=== PATIENT | male | born 1965 | race Caucasian/White ===

== ENCOUNTER → 2021-07-03 10:27 | Outpatient (BNVA) | payer MEDICARE, MEDICAID, SELFPAY | PROVIDERS: Visit Provider Physician Assistant | DX: Z13.89 Encounter for screening for other disorder (principal) ==

== ENCOUNTER 2021-07-03 11:38 | Outpatient (REF) | payer MEDICARE, MEDICAID, SELFPAY ==
[2021-07-03 13:43] LABS: MANUAL DIFF FLAG NO
[2021-07-03 13:47] LABS: Basophils Percent Auto 0.3 % (0-2); Eosinophils Absolute Auto 0.2 X10*3/uL (0.0-0.4); Eosinophils Percent Auto 2.8 % (0-4); Hematocrit 41.7 % (42.0-52.0); Hemoglobin 14.7 g/dl (14.0-18.0); Imm Gran Abs Auto 0.02 X10*3/uL (0.00-0.03); Imm Gran Pct Auto 0.3 % (0.0-0.4); Lymphocytes Absolute Auto 1.7 X10*3/uL (1.2-4.9); Lymphocytes Percent Auto 23.4 % (20-40); Mean Corpuscular HGB Conc 35.3 g/dl (31.0-36.0); Mean Corpuscular Hemoglobin 31.3 pg (27.0-33.0); Mean Corpuscular Volume 88.7 fL (80.0-98.0); Mean Platelet Volume 9.9 fL (9.4-12.4); Monocytes Absolute Auto 0.5 X10*3/uL (0.1-1.2); Neutrophils Absolute Auto 4.8 x10*3/uL (2.0-8.3); Neutrophils Percent Auto 66.2 % (45-73); Platelet Count 223 X10*3/uL (160-400); Red Cell Distribution Width 12.6 % (11.0-16.0); White Blood Count 7.3 X10*3/uL (4.8-10.8)
[2021-07-03 14:00] LABS: Alanine Aminotransferase 44 U/L (0-40); Albumin Level 4.1 g/dL (3.5-5.0); Alkaline Phosphatase 59 U/L (39-117); Anion Gap 12 (12-20); Aspartate Amino Transferase 26 U/L (5-37); Bilirubin Total 0.5 mg/dL (0.0-1.0); Blood Urea Nitrogen 23 mg/dL (9-16); C Reactive Protein 0.26 mg/dL (< or = 0.50); Calcium 9.3 mg/dL (8.4-10.2); Carbon Dioxide 26 mmol/L (22-29); Chloride 105 mmol/L (96-108); Estimated Glomerular Filt Rate > 60; Glucose Random 212 mg/dL (60-115); Potassium 4.6 mmol/L (3.3-5.1); Sodium 138 mmol/L (135-145); Total Protein 6.7 g/dL (6.5-8.0)
[2021-07-03 14:11] LABS: Estimated Average Glucose 157 mg/dL; Hemoglobin A1c % 7.1 %
[2021-07-03 14:22] LABS: Thyroid Stimulating Hormone 0.52 uIU/mL (0.32-4.0)
[2021-07-03 14:33] LABS: Erythrocyte Sedimentation Rate 8 MM/HR (0-15)
[2021-07-06 08:01] LABS: Transglutaminase IgA <1.0 U/mL
[2021-07-07 13:06] LABS: Endomysial IgA Antibody Negative (Negative)
== END 2021-07-03 11:39 | disposition home or self-care (01) ==
LOC: HO.WFDLDS 11:38
PROVIDERS: Visit Provider Physician Assistant
DX: K52.9 Noninfective gastroenteritis and colitis, unspecified (principal); K59.09 Other constipation; R11.0 Nausea; R14.0 Abdominal distension (gaseous); R68.81 Early satiety; R10.9 Unspecified abdominal pain; Z12.11 Encounter for screening for malignant neoplasm of colon; Z79.899 Other long term (current) drug therapy; Z79.82 Long term (current) use of aspirin; Z87.891 Personal history of nicotine dependence
CPT/HCPCS: 36415; 80053; 83036; 84443; 85025; 85652; 86140; 86231; 86364; 99202

== ENCOUNTER 2021-08-02 10:02 | Outpatient (REF) | payer MEDICARE, MEDICAID, SELFPAY ==
[2021-08-02 13:56] LABS: CDiff Gene PCR NEGATIVE (Negative)
[2021-08-07 23:21] LABS: Calprotectin, Fecal 181 mcg/g
== END 2021-08-02 10:03 | disposition home or self-care (01) ==
LOC: HO.WFDLNP 10:02
PROVIDERS: Visit Provider Physician Assistant
DX: K52.9 Noninfective gastroenteritis and colitis, unspecified (principal)
CPT/HCPCS: 83993; 87329; 87493

== ENCOUNTER → 2021-08-21 09:29 | Outpatient (BNVA) | payer MEDICARE, MEDICAID, SELFPAY | PROVIDERS: PCP Family Medicine; Visit Provider Physician Assistant | DX: K52.9 Noninfective gastroenteritis and colitis, unspecified (principal) | CPT/HCPCS: Q3014 ==

== ENCOUNTER → 2021-10-02 14:27 | Outpatient (BNVA) | payer MEDICARE, MEDICAID, SELFPAY | PROVIDERS: PCP Family Medicine; Referring Provider Family Medicine; Visit Provider Physician Assistant | DX: K52.9 Noninfective gastroenteritis and colitis, unspecified (principal) | CPT/HCPCS: 99212 ==

== ENCOUNTER 2021-11-06 10:23 | Outpatient (REF) | payer MEDICARE, MEDICAID, SELFPAY ==
--- NOTE | ~2021-11-06 | US_ITS ---
EXAMINATION: US COMPLETE ABDOMEN WITH LIVER ELASTOGRAPHY CLINICAL INFORMATION: Abdominal distention. COMPARISON: None. TECHNIQUE: Real-time imaging of the abdominal viscera. Noninvasive ultrasound liver fibrosis assessment is performed using Edwin ElastPQ point quantification shear wave elastography (2D-SWE) with a C5-2 MHz transducer. Multiple elastography samples are obtained. FINDINGS: PANCREAS: The visualized pancreatic head and body are normal in appearance. The remainder of the pancreas is obscured from visualization by the overlying bowel gas. ABDOMINAL AORTA: The proximal, middle, and distal aortic segments are normal in caliber. INFERIOR VENA CAVA: Visualized portions are normal. LIVER: The liver demonstrates normal size, contour and increased echogenicity. There is an area of focal fatty sparing. No other focal lesion or intrahepatic biliary duct dilatation. The right lobe measures 17.0 cm in length. The left lobe measures 12.2 cm in length. Portal flow is hepatopedal. Shear wave liver elastography median stiffness is 1.52 m/s (reference: normal median stiffness is 1.3 m/s or less). IQR/median stiffness to assess sampling precision is 0.09 (reference: good quality data set is IQR/median stiffness of 0.15 or less). GALLBLADDER: There is an echogenic nonmobile polyp measuring 0.6 x 0.6 x 0.7 cm. The gallbladder is physiologically distended without evidence of stones, sludge, polyps, wall thickening or pericholecystic fluid. COMMON BILE DUCT: Normal in caliber measuring 0.5 cm in diameter. RIGHT KIDNEY: Normal. No hydronephrosis. No renal calculi or focal parenchymal lesions. The kidney measures 10.2 cm in maximum dimension. LEFT KIDNEY: Normal. No hydronephrosis. No renal calculi or focal parenchymal lesions. The kidney measures 10.6 cm in maximum dimension. SPLEEN: Normal. The spleen measures 11.0 cm in maximum dimension. FREE FLUID: None. US/US abdomen comp w elastography IMPRESSION: 1. Hepatic steatosis with areas of focal fatty sparing. Nonmobile echogenic gallbladder polyp. 2. Liver elastography: Median liver stiffness measures 1.52 corresponding to cACLD (ruled out). REFERENCE: Society of Radiologists in Ultrasound Liver Stiffness Thresholds (2019): LIVER STIFFNESS THRESHOLDS: *Liver Stiffness equal or less than 1.3 m/s: High probability of being normal. *Liver Stiffness less than 1.7 m/s: In the absence of other known clinical signs, rules out compensated advanced chronic liver disease. *Liver Stiffness 1.7-2.1 m/s: Suggestive of compensated advanced chronic liver disease but need further test for confirmation. *Liver Stiffness over 2.1 m/s: Rules in compensated advanced chronic liver disease. *Liver Stiffness over 2.4 m/s: Suggestive of clinically significant portal hypertension. QUALITY OF DATA SET: *IQR/Median value equal or less than 0.15 implies a quality data set. *IQR/Median value over 0.15 implies a poor quality data set. SIGNIFICANT CHANGE FROM PRIOR EXAM: Significant change if liver stiffness measurement is 10% or greater from prior exam. OTHER CONSIDERATIONS: The stage of liver fibrosis may be overestimated in the setting of acute hepatitis, liver inflammation, elevated liver function tests, hepatic vascular congestion, obstructive cholestasis, non-fasting state, and infiltrative diseases such as amyloidosis and lymphoma. In some patients with NAFLD, the liver stiffness thresholds for compensated advanced chronic liver disease may be lower. In causes other than viral hepatitis and NAFLD, liver stiffness thresholds are not well established.
== END 2021-11-06 10:24 | disposition home or self-care (01) ==
LOC: HO.US 10:23
PROVIDERS: Visit Provider Physician Assistant
DX: R10.9 Unspecified abdominal pain (principal); R14.0 Abdominal distension (gaseous)
CPT/HCPCS: 76705; 76981

== ENCOUNTER 2022-02-12 07:28 | Day surgery (SDC) | payer MEDICARE, MEDICAID, SELFPAY ==
[2022-02-07 10:59] VITALS: BMI 34.3
--- NOTE | 2022-02-11 12:40 | HO.ANESPROP2 ---
Documented by User: Lisa Urbina NP 02/11/22 12:48 HPI - Anesthesia Eval Consult details Narrative: 56yo M for Colonoscopy 01/19/22 obs admission to [facility] for chest pain - per D/C summary, atypical CP with nml EKG and neg trops 02/11/22 tele eval, pt describes anxiety r/t CP. No CP or SOB with stairs. PMFSH Active Problems Active Problems: All Active Problems (Updated 02/07/22 @ 10:59 by Kathrine Pereyra, LES) Abdominal bloating with cramps (Acute) Early satiety (Acute) Nausea (Acute) Chronic diarrhea (Acute) Laboratory exam ordered as part of routine general medical examination (Acute) Failed back syndrome (Acute) Chronic pain (Acute) Anxiety with depression (Acute) CAD (coronary artery disease) (Acute) Hyperlipidemia (Acute) Neoplasm of uncertain behavior of skin (Acute) Foot pain (Acute) Abnormal lung sounds (Acute) Low libido (Acute) COPD (chronic obstructive pulmonary disease) (Acute) Adult general medical exam (Acute) Screening for colon cancer (Acute) Screening for prostate cancer (Acute) Shortness of breath (Acute) Obesity (BMI 30-39.9) (Acute) Crepitus of joint of right knee (Acute) HTN (hypertension) (Acute) Stented coronary artery (Acute) Past Medical History Medical History Arthritis CAD (coronary artery disease) Chronic neck and back pain HTN (hypertension) On beta jamari at home Sleep apnea Substance abuse Family History Family History Mother COPD (chronic obstructive pulmonary disease) Cancer Father CAD (coronary artery disease) COPD (chronic obstructive pulmonary disease) Surgical History Surgical History H/O spinal fusion Hx of colonoscopy Hx of endoscopy Stented coronary artery Social History Social History Household Members: Family Housing: House Are you a primary client care specialist to a significant other at home: No Do you presently have visiting nurse or other home services: No Alcohol intake: former Patient Tobacco Use Status: Former Tobacco user Quit Date: yrs ago Tobacco use type: Cigarette Cigarette Packs Per Day: 1 Cigarettes Per Day: 20 e-Cigarette/Vaping Use: Never Used Second Hand Smoke Exposure: No Use of substances other than those prescribed or required for medical reasons: Yes Substance Use Type: Marijuana Substance Use Frequency: Daily Have you been hit, kicked, punched, or otherwise hurt by someone within the past year? If so, by whom?: No Are you DNR?: No Advance Directives: No Advance Directives Information Provided: Yes Advance Directives on File: No Recently lost weight without trying: No How much weight loss: 2-13 pounds Eating poorly because of decreased appetite: No Nutrition screen score: 1 Nutrition Risks: No Nutritional Risk service: No Current occupational status: employed Current occupational exposures/hazards: No Cognitive needs: No Hearing needs: No Vision needs: No Meds Allergies Allergy/AdvReac Type Severity Reaction Status Date / Time statins Allergy Intermediate Chest Pain Uncoded 02/12/22 07:41 Home Medications Medication Instructions Recorded Confirmed Last Taken Type aspirin 81 mg chewable tablet (St 81 mg PO DAILY 07/03/21 02/07/22 02/11/22 History Von Aspirin) clonazepam 2 mg tablet 2 mg PO BEDTIME 07/03/21 02/07/22 Unknown History hydrochlorothiazide 25 mg tablet 25 mg PO DAILY 07/03/21 02/07/22 Unknown History lisinopril 40 mg tablet 40 mg PO DAILY 07/03/21 02/07/22 Unknown History metoprolol succinate 200 mg 200 mg PO DAILY 07/03/21 02/07/22 02/12/22 History tablet,extended release 24 hr bupropion HCl 300 mg 24 hr tablet, 150 mg PO DAILY 12/26/21 02/07/22 Unknown History extended release hydrocodone 10 mg-acetaminophen 1 tab PO Q6H PRN Pain 12/26/21 02/07/22 02/12/22 History 325 mg tablet pantoprazole 40 mg tablet,delayed 40 mg PO QPM 12/26/21 02/07/22 Unknown History release morphine 15 mg immediate release 1 tab BEDTIME PRN Pain 02/07/22 02/07/22 Unknown History tablet Exam Exam Date and Time: February 11, 2022 1240 Height,Weight and Vital Signs: Height 5 ft 6 in Weight 96.615 kg Pertinent Lab Results Pertinent Lab Results: 01/19/22 CBC and BMP at [facility] Narrative Narrative: EKG 01/18/22 from [facility] admit NSR, new flipped T wave in lead III Assessment and Plan Assessment Anesthesia Assessment: Chart Reviewed Documented by User: Gonzalo Bryant MD 02/12/22 08:29 [facility] Past Medical History Medical History Arthritis CAD (coronary artery disease) Chronic neck and back pain HTN (hypertension) On beta jamari at home Sleep apnea Substance abuse Family History Family History Mother COPD (chronic obstructive pulmonary disease) Cancer Father CAD (coronary artery disease) COPD (chronic obstructive pulmonary disease) Family history of problems with anesthesia: No Surgical History Surgical History H/O spinal fusion Hx of colonoscopy Hx of endoscopy Stented coronary artery History of Problems with Anesthesia: No Social History Social History Household Members: Family Housing: House Are you a primary client care specialist to a significant other at home: No Do you presently have visiting nurse or other home services: No Alcohol intake: former Patient Tobacco Use Status: Former Tobacco user Quit Date: yrs ago Tobacco use type: Cigarette Cigarette Packs Per Day: 1 Cigarettes Per Day: 20 e-Cigarette/Vaping Use: Never Used Second Hand Smoke Exposure: No Use of substances other than those prescribed or required for medical reasons: Yes Substance Use Type: Marijuana Substance Use Frequency: Daily Have you been hit, kicked, punched, or otherwise hurt by someone within the past year? If so, by whom?: No Are you DNR?: No Advance Directives: No Advance Directives Information Provided: Yes Advance Directives on File: No Recently lost weight without trying: No How much weight loss: 2-13 pounds Eating poorly because of decreased appetite: No Nutrition screen score: 1 Nutrition Risks: No Nutritional Risk service: No Current occupational status: employed Current occupational exposures/hazards: No Cognitive needs: No Hearing needs: No Vision needs: No Meds Allergies Allergy/AdvReac Type Severity Reaction Status Date / Time statins Allergy Intermediate Chest Pain Uncoded 02/12/22 07:41 Home Medications Medication Instructions Recorded Confirmed Last Taken Type aspirin 81 mg chewable tablet (St 81 mg PO DAILY 07/03/21 02/07/22 02/11/22 History Von Aspirin) clonazepam 2 mg tablet 2 mg PO BEDTIME 07/03/21 02/07/22 Unknown History hydrochlorothiazide 25 mg tablet 25 mg PO DAILY 07/03/21 02/07/22 Unknown History lisinopril 40 mg tablet 40 mg PO DAILY 07/03/21 02/07/22 Unknown History metoprolol succinate 200 mg 200 mg PO DAILY 07/03/21 02/07/22 02/12/22 History tablet,extended release 24 hr bupropion HCl 300 mg 24 hr tablet, 150 mg PO DAILY 12/26/21 02/07/22 Unknown History extended release hydrocodone 10 mg-acetaminophen 1 tab PO Q6H PRN Pain 12/26/21 02/07/22 02/12/22 History 325 mg tablet pantoprazole 40 mg tablet,delayed 40 mg PO QPM 12/26/21 02/07/22 Unknown History release morphine 15 mg immediate release 1 tab BEDTIME PRN Pain 02/07/22 02/07/22 Unknown History tablet Exam Airway Mallampati Class: III TM Dist: >3cm Neck ROM: Full Partial: Lower Heart: rrr Lungs: clear Assessment and Plan Final Anesthetic Review Family History of Problems with Anesthesia: No History of Problems with Anesthesia: No NPO: Yes ASA Class: III Final Preanesthetic Review: No Changes in Pt Med Stat, Meds/Allgs Chart Reviewed, Consent Obtained/Reviewed and Anes Risks/Benef Reviewed Patient Risk: Intermediate Procedure Risk: Low Anesthetic Plan Anesthetic Plan: MAC: Disposition: Standard PACU
--- NOTE | 2022-02-12 07:09 | P.HPSUR_ITS ---
Pre-Procedural Eval Section A Date of Service: 02/12/22 Section B Chief Complaint: diarrhea Relevant Family History (Specify if Yes): No Relevant Social History: Other (specify) (THC use) Present Medications: see Short Stay Collaborative assessment Medical History: Significant History (Arthritis CAD (coronary artery disease) Chronic neck and back pain HTN (hypertension) On beta jamari at home Sleep ap dwayne Substance abuse) History of Previous Operations: Relevant previous surgery/procedure and date(s) (H/O spinal fusion Hx of colonoscopy Hx of endoscopy Stented coronary artery) Allergies: Allergies Allergy/AdvReac Type Severity Reaction Status Date / Time statins Allergy Mild Chest Pain Uncoded 02/07/22 10:24 Review of Systems Sugical H&P ROS: Negative: Constitution, Cardiovascular, Respiratory, Neurological, Psychiatric, Hem-Onc, Allergic/Immunologic, Gastrointestinal, Genitourinary, Musculoskeletal, Integumentary, Endocrine and Eyes/Ears/Nose/Throat Exam Surgical H&P Exam: Normal: HEENT, Normal: Heart, Normal: Lungs, Normal: Extremities, Normal: Abdomen, Normal: Skin and Normal: Neurological Plan Diagnosis/Plan: Unchanged I have reviewed the history and physical and performed a pertinent physical examination on my patient. No changes have occurred unless specified.
[2022-02-12 07:48] VITALS: BP 136/57; PULSE 57; RESP 18; TEMP 36.4; O2SAT 96
[2022-02-12] MEDS: Lactated Ringers 1,000 ML 100 ML IVCONT (07:54)
[2022-02-12 07:57] LABS: Amphetamine Screen Urine Not Detected (Not Detect); Barbiturates, Urine Not Detected (Not Detect); Benzodiazepines Screen Urine POSITIVE (Not Detect); Cannabinoid Screen Urine POSITIVE (Not Detect); Cocaine Screen Urine Not Detected (Not Detect); Fentanyl, urine Not Detected (Not Detect); Opiate Screen Urine POSITIVE (Not Detect); Phencyclidine Screen Urine Not Detected (Not Detect)
--- NOTE | 2022-02-12 09:09 | W.PM.OPN ---
Operative Note Operative Note Date of Service: 02/12/22 Narrative: Operative Information Procedure Description: Colonoscopy Indication: diarrhea Anesthesia: MAC COLONOSCOPY Instrument: Olympus variable stiffness pediatric scope 190L Colonoscopy Monitoring: Vital signs and clinical assessment, continuous EKG monitoring, Pulse oximetry, Carbon Dioxide monitoring and blood pressure monitoring were done throughout the procedure. Colon withdrawal time was 12 minutes. Procedure: The patient was placed in the left lateral decubitis position and pre-procedure medications were administered. After a digital rectal examination of the ano-rectum, the video colonoscope was inserted into the rectum and advanced through the colon to the cecum/TI. The colonoscope was slowly withdrawn in a retrograde panoramic fashion and the colon mucosa was carefully examined including a retroflexed view of the rectum. Findings and interventions are described below. Procedure Difficulty: easy Findings: Terminal Ileum-normal, bx taken bx taken from random right and left colon Cecum:normal Ascending Colon: normal Transverse Colon -normal Descending Colon:normal Sigmoid Colon: moderate diverticulosis, x 2 sessile polyps removed with cold and hot snare. Measured 10-12 mm. One of the tissues had edges ablated with soft tip coag. Rectum: Retroflexion with small internal hemorrhoids, grade I Anorectum - normal Colon preparation: [place] Bowel Preparation Scale Right colon; 2 Transverse colon: 2 Left colon; 2 (0 = Unprepared colon segment with mucosa not seen due to solid stool that cannot be cleared. 1 = Portion of mucosa of the colon segment seen, but other areas of the colon segment not well seen due to staining, residual stool and/or opaque liquid. 2 = Minor amount of residual staining, small fragments of stool and/or opaque liquid, but mucosa of colon segment seen well. 3 = Entire mucosa of colon segment seen well with no residual staining, small fragments of stool or opaque liquid) Impression and Post Procedure Diagnosis: polyps internal hemorrhoids diverticular disease Plan: High fiber diet leaflet Avoid straining at stool, epsom salts and sitz bath, anusol supps or cream Repeat Colonoscopy in 3-5 years if adenomatous, 10 years if hyperplastic or earlier if clinically indicated Above findings were reviewed with the patient and relevant handouts were provided if indicated.
[2022-02-12 09:14] VITALS: BP 114/69; PULSE 54; RESP 16; TEMP 36.9; O2SAT 97
[2022-02-12 09:29] VITALS: BP 135/69; PULSE 57; RESP 18; TEMP 36.9; O2SAT 98
== END 2022-02-12 10:12 | disposition home or self-care (01) ==
PROVIDERS: Nurse Practitioner; PCP Family Medicine; Visit Provider Internal Medicine Gastroenterology
PROC: 0DJD8ZZ Inspection of Lower Intestinal Tract, Via Natural or Artificial Opening Endoscopic (ICD-10-PCS; CPT 45378; principal; 2022-02-12 08:30)
DX: K52.9 Noninfective gastroenteritis and colitis, unspecified (principal); D12.5 Benign neoplasm of sigmoid colon; K57.30 Diverticulosis of large intestine without perforation or abscess without bleeding; K64.0 First degree hemorrhoids; I25.10 Atherosclerotic heart disease of native coronary artery without angina pectoris; I10 Essential (primary) hypertension; Z98.61 Coronary angioplasty status; Z79.899 Other long term (current) drug therapy; Z88.8 Allergy status to other drugs, medicaments and biological substances; F12.90 Cannabis use, unspecified, uncomplicated; Z87.891 Personal history of nicotine dependence
CPT/HCPCS: 45385; 45380; 80307; 88305

== ENCOUNTER 2022-03-27 10:09 | Outpatient (REF) | payer MEDICARE, MEDICAID, SELFPAY ==
[2022-03-27 11:33] LABS: MANUAL DIFF FLAG NO
[2022-03-27 11:34] LABS: Basophils Percent Auto 0.3 % (0-2); Eosinophils Absolute Auto 0.2 X10*3/uL (0.0-0.4); Eosinophils Percent Auto 3.1 % (0-4); Hematocrit 43.6 % (42.0-52.0); Hemoglobin 15.4 g/dl (14.0-18.0); Imm Gran Abs Auto 0.02 X10*3/uL (0.00-0.03); Imm Gran Pct Auto 0.3 % (0.0-0.4); Lymphocytes Absolute Auto 1.5 X10*3/uL (1.2-4.9); Lymphocytes Percent Auto 22.7 % (20-40); Mean Corpuscular HGB Conc 35.3 g/dl (31.0-36.0); Mean Corpuscular Hemoglobin 32.2 pg (27.0-33.0); Mean Corpuscular Volume 91.2 fL (80.0-98.0); Mean Platelet Volume 9.4 fL (9.4-12.4); Monocytes Absolute Auto 0.5 X10*3/uL (0.1-1.2); Monocytes Percent Auto 7.4 % (2-11); Neutrophils Absolute Auto 4.3 x10*3/uL (2.0-8.3); Neutrophils Percent Auto 66.2 % (45-73); Platelet Count 239 X10*3/uL (160-400); Red Blood Count 4.78 X10*6/uL (4.60-5.80); Red Cell Distribution Width 11.9 % (11.0-16.0); White Blood Count 6.5 X10*3/uL (4.8-10.8)
[2022-03-27 12:28] LABS: Alanine Aminotransferase 21 U/L (0-40); Albumin Level 4.2 g/dL (3.5-5.0); Alkaline Phosphatase 64 U/L (39-117); Anion Gap 15 (12-20); Aspartate Amino Transferase 16 U/L (5-37); Bilirubin Total 0.5 mg/dL (0.0-1.0); Blood Urea Nitrogen 28 mg/dL (9-16); Calcium 9.4 mg/dL (8.4-10.2); Carbon Dioxide 23 mmol/L (22-29); Chloride 106 mmol/L (96-108); Cholesterol 231 mg/dL; Estimated Glomerular Filt Rate > 60; Glucose Random 172 mg/dL (60-115); Potassium 4.6 mmol/L (3.3-5.1); Sodium 139 mmol/L (135-145); Total Protein 6.9 g/dL (6.5-8.0); Triglycerides 160 mg/dL; Troponin-I High Sensitivity < 3.5 ng/L (<3.5-35.0)
[2022-03-27 13:01] LABS: HDL Cholesterol 39 mg/dL; LDL Cholesterol Calculated 160 mg/dl
[2022-03-29 06:26] LABS: LDL Cholesterol Direct 170 mg/dL (<100)
== END 2022-03-27 10:10 | disposition home or self-care (01) ==
LOC: HO.WFDLDS 10:09
PROVIDERS: Visit Provider Family Medicine
DX: Z00.00 Encounter for general adult medical examination without abnormal findings (principal); R07.9 Chest pain, unspecified; I25.10 Atherosclerotic heart disease of native coronary artery without angina pectoris
CPT/HCPCS: 36415; 80053; 80061; 83721; 84484; 85025

== ENCOUNTER → 2022-03-29 08:08 | Outpatient (BNVA) | payer MEDICARE, MEDICAID, SELFPAY | PROVIDERS: PCP Family Medicine; Visit Provider Internal Medicine Gastroenterology | DX: K57.90 Diverticulosis of intestine, part unspecified, without perforation or abscess without bleeding (principal); D36.9 Benign neoplasm, unspecified site | CPT/HCPCS: Q3014 ==

== ENCOUNTER 2022-06-18 10:19 | Outpatient (REF) | payer MEDICARE, MEDICAID, SELFPAY ==
[2022-06-18 12:41] LABS: Alanine Aminotransferase 24 U/L (0-40); Albumin Level 4.4 g/dL (3.5-5.0); Alkaline Phosphatase 64 U/L (39-117); Anion Gap 16 (12-20); Aspartate Amino Transferase 19 U/L (5-37); Bilirubin Total 0.8 mg/dL (0.0-1.0); Blood Urea Nitrogen 29 mg/dL (9-16); Calcium 9.3 mg/dL (8.4-10.2); Carbon Dioxide 21 mmol/L (22-29); Chloride 105 mmol/L (96-108); Cholesterol 146 mg/dL; Estimated Glomerular Filt Rate 53; Glucose Random 205 mg/dL (60-115); HDL Cholesterol 34 mg/dL; LDL Cholesterol Calculated 91 mg/dl; Potassium 4.4 mmol/L (3.3-5.1); Sodium 138 mmol/L (135-145); Total Protein 7.1 g/dL (6.5-8.0); Triglycerides 109 mg/dL
[2022-06-21 08:19] LABS: LDL Cholesterol Direct 90 mg/dL (<100)
== END 2022-06-18 10:20 | disposition home or self-care (01) ==
LOC: HO.WFDLDS 10:19
PROVIDERS: Visit Provider Family Medicine
DX: Z00.00 Encounter for general adult medical examination without abnormal findings (principal); I25.10 Atherosclerotic heart disease of native coronary artery without angina pectoris; F41.8 Other specified anxiety disorders
CPT/HCPCS: 36415; 80053; 80061; 83721

== ENCOUNTER 2022-10-17 10:14 | Outpatient (REF) | payer MEDICARE, MEDICAID, SELFPAY ==
[2022-10-17 15:04] LABS: Alanine Aminotransferase 26 U/L (0-40); Albumin Level 4.3 g/dL (3.5-5.0); Alkaline Phosphatase 64 U/L (39-117); Anion Gap 13 (12-20); Aspartate Amino Transferase 20 U/L (5-37); Bilirubin Total 1.1 mg/dL (0.0-1.0); Blood Urea Nitrogen 38 mg/dL (9-16); Calcium 9.4 mg/dL (8.4-10.2); Carbon Dioxide 21 mmol/L (22-29); Chloride 107 mmol/L (96-108); Cholesterol 101 mg/dL; Estimated Glomerular Filt Rate 52; Glucose Fasting 180 mg/dL (60-99); HDL Cholesterol 33 mg/dL; LDL Cholesterol Calculated 48 mg/dl; Potassium 4.6 mmol/L (3.3-5.1); Sodium 136 mmol/L (135-145); Total Protein 6.9 g/dL (6.5-8.0); Triglycerides 100 mg/dL
[2022-10-17 15:09] LABS: Microalbum/Creatinine Ratio Ur 15.7 ug/mg cr
== END 2022-10-17 10:15 | disposition home or self-care (01) ==
LOC: HO.WFDLDS 10:14
PROVIDERS: Visit Provider Family Medicine
DX: Z00.00 Encounter for general adult medical examination without abnormal findings (principal); I25.10 Atherosclerotic heart disease of native coronary artery without angina pectoris; I10 Essential (primary) hypertension
CPT/HCPCS: 36415; 80053; 80061; 82043

== ENCOUNTER → 2022-11-06 14:54 | Outpatient (BNVA) | payer MEDICARE, MEDICAID, SELFPAY | PROVIDERS: PCP Family Medicine; Visit Provider Nurse Practitioner Family | DX: J44.9 Chronic obstructive pulmonary disease, unspecified (principal); R06.02 Shortness of breath; G47.33 Obstructive sleep apnea (adult) (pediatric); I25.10 Atherosclerotic heart disease of native coronary artery without angina pectoris; I10 Essential (primary) hypertension; Z95.5 Presence of coronary angioplasty implant and graft; F12.20 Cannabis dependence, uncomplicated; Z91.09 Other allergy status, other than to drugs and biological substances; Z87.891 Personal history of nicotine dependence; Z79.899 Other long term (current) drug therapy | CPT/HCPCS: 99202 ==

== ENCOUNTER 2022-11-28 15:12 | Outpatient (AMB) | payer MEDICARE, MEDICAID, SELFPAY ==
[2022-11-28 15:38] VITALS: BP 124/58; PULSE 56; RESP 16; O2SAT 97; BMI 35.1
--- NOTE | 2022-11-28 15:38 | A.OFFPC_ITS ---
Vital Signs 11/28/22 15:38 Height 5 ft 6 in Weight 217 lb 4 oz BMI 35.1 BP 124/58 L Blood Pressure Location Lt brachial Position Sitting Respiration 16 Pulse 56 Pulse Oximetry (%) 97 Oxygen Delivery Method Room Air Intake Visit Reasons: f/u diabetes Intake Note: Patient is here to follow up on his diabetes, he is concerned about retaining water. Allergies No Known Allergies Allergy (Verified 11/28/22 15:39) Tobacco use date assessed: 11/28/22 Dental Screening Dental Screen Date: 11/28/22 Did you have a dental visit in the last 12 months?: Yes Did you have a dental problem in the last 6 months where you did not have access to dental care?: No Was dental information given to patient?: No HPI f/u diabetes HPI Details 57 y/o male presents to f/u new diagnosis of diabetes. Had started him on metformin and low dose of glipizide. He states he is tolerating the medications fine, though he states he is frustrated as he does not know what to eat. He states he is going on a pulmonary function testing tomorrow. [facility] Medical History Arthritis CAD (coronary artery disease) Chronic neck and back pain HTN (hypertension) On beta jamari at home Sleep apnea Substance abuse Surgical History H/O spinal fusion Hx of colonoscopy Hx of endoscopy Stented coronary artery Family History Mother COPD (chronic obstructive pulmonary disease) Cancer Father CAD (coronary artery disease) COPD (chronic obstructive pulmonary disease) Social History Household Members: Family Housing: House Are you a primary field care coordinator to a significant other at home: No Do you presently have visiting nurse or other home services: No Alcohol intake: former Patient Tobacco Use Status: Former Tobacco user Quit Date: yrs ago Tobacco use type: Cigarette Cigarette Packs Per Day: 1 Cigarettes Per Day: 20 e-Cigarette/Vaping Use: Never Used Second Hand Smoke Exposure: No Substance Use Type: Marijuana service: No Current occupational status: employed Current occupational exposures/hazards: No Cognitive needs: No Hearing needs: No Vision needs: No Questionnaire Thrive Questionnaire Date Thrive assessed: 06/18/22 MCKENNA-7 AMB Questionnaire MCKENNA-7 Date MCKENNA - 7 assessed: 06/18/22 Source: Developed by Drs. Junior Richards, Vania Vázquez, Fred Boudreaux and colleagues, with an educational zacarias from [employer]. Review of Systems Const Denies chills, Denies fatigue, Denies fever(s), Denies headache(s) and Denies weakness ENT Denies dizziness and Denies headache(s) Card Denies chest pain, Denies lightheadedness, Denies dyspnea and Denies other (Palpitations) Resp Denies cough, Denies dyspnea, Denies wheezing and Denies other ( shortness of breath) Musc Denies numbness and Denies tingling Neuro Denies dizziness, Denies headache(s), Denies numbness, Denies tingling, Denies paresthesias and Denies weakness Psych Denies anxiety and Denies depression Endo Denies fatigue Aller/Immun Denies wheezing Physical exam (Primary Care) Vital Signs: Last Vital Signs Pulse 56 11/28/22 15:38 Resp 16 11/28/22 15:38 BP 124/58 L 11/28/22 15:38 Pulse Ox 97 11/28/22 15:38 Oxygen Delivery Method Room Air 11/28/22 15:38 BMI result Body Mass Index 35.1 Tobacco/Smoking Status: Tobacco use Status Tobacco use date assessed 11/28/22 11/28/22 15:40 Patient Tobacco Use Status Former Tobacco user 11/28/22 15:40 Tobacco use type Cigarette 11/28/22 15:40 e-Cigarette/Vaping Use Never Used 11/28/22 15:40 Thrive Assessment: Date of Thrive Assessment Date Thrive assessed 06/18/22 11/28/22 15:40 Const General: no acute distress and well developed Nutritional Appearance: well nourished Orientation/consciousness: patient oriented x3 HENMT Head: Yes normocephalic and Yes atraumatic Eyes General: appearance normal, both eyes and all related structures Pupils: Equal, round and reactive pupils present EOM: EOMs intact bilaterally Resp Other: Coarse breath sounds Effort & Inspection: normal respiratory effort Auscultation: clear to auscultation bilaterally Cardio Rate: regular rate Rhythm: regular rhythm Heart sounds: S1 normal heart sound present, S2 normal heart sound present, no gallops, no murmurs and no rubs Neuro General: patient oriented x3 and gait normal Cranial nerves: Yes Equal, round and reactive pupils present Psych Affect: normal affect Assessment and Plan Assessment & Plan (1) Diabetes: Code(s): E11.9 - Type 2 diabetes mellitus without complications Plan: New diagnosis of diabetes at last visit and patient has known coronary artery disease Started him on oral medications which he is tolerating. Patient is frustrated because he feels uncertain about what to eat. Will refer him for diabetic teaching Patient notes bouts of fatigue; he says these have preceded medications for blood sugar. Nevertheless, will give him a script for diabetic testing supplies. He will keep a log and we can follow-up on these at his next visit (2) Dyspnea on exertion: Code(s): R06.09 - Other forms of dyspnea Plan: Likely some COPD. He has seen pulmonology now and they have PFT testing scheduled. I had also ordered a chest x-ray and he will get this done on the same day Up with pulmonology as recommended (3) Exposure to HIV: Code(s): Z20.6 - Contact with and (suspected) exposure to human immunodeficiency virus [HIV] Plan: Patient has new partner diagnosed with HIV infection. Patient says his partner and is well controlled on antiretroviral medications and followed by infectious disease specialist. We discussed PrEP with medications such as Truvada. This medication can cause some fatigue. He would like to think about it. In the meantime we will check his HIV status. Orders: Orders Comprehensive [place]. Panel Fast Today R79.89 - Other specified abnormal findings of blood chemistry, Z00.00 - Encounter for general adult medical examination without abnormal findings HIV Ab/Ag Today Z20.6 - Contact with and (suspected) exposure to human immunodeficiency virus [HIV] Referrals Nurse Navigator Referral E11.9 - Type 2 diabetes mellitus without complications Medications: New blood-glucose meter (FreeStyle Lite Meter kit) DX: E11.9, test blood sugar 4 times a day, duration 999 days 1 ea 0RF E11.9 - Type 2 diabetes mellitus without complications blood sugar diagnostic (FreeStyle Lite Strips) DX: E11.9, test blood sugar 4 times a day, 90 days 400 ea 4RF E11.9 - Type 2 diabetes mellitus without complications lancets (FreeStyle Lancets) As directed 400 ea 4RF DX: E11.9, test blood sugar 4 times a day, 90 day E11.9 - Type 2 diabetes mellitus without complications blood-glucose meter (FreeStyle Lite Meter kit) DX: E11.9, test blood sugar once a day, duration 999 days 1 ea 0RF E11.9 - Type 2 diabetes mellitus without complications blood sugar diagnostic (FreeStyle Lite Strips) DX: E11.9, test blood sugar once a day, 90 days 100 ea 4RF E11.9 - Type 2 diabetes mellitus without complications lancets (FreeStyle Lancets) As directed 100 ea 4RF DX: E11.9, test blood sugar once a day, 90 day E11.9 - Type 2 diabetes mellitus without complications Coding Level of Care Code Est Pt Level 3 (50524) Diagnoses Diabetes E11.9 Dyspnea on exertion R06.09 Exposure to HIV Z20.6
== END 2022-11-28 16:43 | disposition home or self-care (01) ==
PROVIDERS: PCP Family Medicine; Visit Provider Family Medicine
DX: E11.9 Type 2 diabetes mellitus without complications (principal); R06.09 Other forms of dyspnea; Z20.6 Contact with and (suspected) exposure to human immunodeficiency virus [HIV]
CPT/HCPCS: 99213

== ENCOUNTER 2022-11-29 09:20 | Outpatient (REF) | payer MEDICARE, MEDICAID, SELFPAY ==
--- NOTE | 2022-11-29 10:11 | PFT_ITS ---
INDICATION: Dyspnea. SPIROMETRY: FEV1 to FVC of 82% with an FEV1 of 3.52 L, which is 103% predicted and an FVC of 4.25 L, which is 104% predicted. No significant response to bronchodilators noted. Maximum voluntary ventilation 92% predicted. LUNG VOLUMES: Total lung capacity 88%. DIFFUSION CAPACITY: DLCO 100% predicted. COMPARISONS: None. INTERPRETATION: No obstructive nor restrictive ventilatory defects identified. No significant response to bronchodilators noted. Normal maximum voluntary ventilation. Lung volumes are normal. Diffusion capacity is normal. If asthma is in the differential, methacholine challenge may be helpful in assessing for hyperreactive airways. Otherwise, clinical correlation warranted. Matthew Garvey MD MR/MODL / [id number]
== END 2022-11-29 09:21 | disposition home or self-care (01) ==
LOC: HO.RESP 09:20
PROVIDERS: PCP Family Medicine; Visit Provider Nurse Practitioner Family
DX: R06.09 Other forms of dyspnea (principal)
CPT/HCPCS: 94010; 94727; 94729

== ENCOUNTER 2022-11-29 10:10 | Outpatient (REF) | payer MEDICARE, MEDICAID, SELFPAY ==
--- NOTE | ~2022-11-29 | XR_ITS ---
EXAMINATION: XR CHEST CLINICAL INFORMATION: Shortness of breath. COMPARISON: None available. TECHNIQUE: 2 views of the chest were obtained. FINDINGS: No significant abnormality is noted involving the heart, lungs, mediastinum, bony thorax or soft tissues. Mild degenerative changes are present in the spine and ACDF hardware noted in the lower cervical spine. XR/XR chest 2V IMPRESSION: No acute intrathoracic disease.
[2022-11-29 10:29] LABS: MANUAL DIFF FLAG NO
[2022-11-29 10:53] LABS: Basophils Percent Auto 0.6 % (0-2); Eosinophils Absolute Auto 0.2 X10*3/uL (0.0-0.4); Eosinophils Percent Auto 2.5 % (0-4); Hematocrit 41.3 % (42.0-52.0); Hemoglobin 14.4 g/dl (14.0-18.0); Imm Gran Abs Auto 0.01 X10*3/uL (0.00-0.03); Imm Gran Pct Auto 0.1 % (0.0-0.4); Lymphocytes Absolute Auto 1.9 X10*3/uL (1.2-4.9); Lymphocytes Percent Auto 26.8 % (20-40); Mean Corpuscular HGB Conc 34.9 g/dl (31.0-36.0); Mean Corpuscular Hemoglobin 31.8 pg (27.0-33.0); Mean Corpuscular Volume 91.2 fL (80.0-98.0); Mean Platelet Volume 8.9 fL (9.4-12.4); Monocytes Absolute Auto 0.5 X10*3/uL (0.1-1.2); Monocytes Percent Auto 7.7 % (2-11); Neutrophils Absolute Auto 4.3 x10*3/uL (2.0-8.3); Neutrophils Percent Auto 62.3 % (45-73); Platelet Count 229 X10*3/uL (160-400); Red Blood Count 4.53 X10*6/uL (4.60-5.80); Red Cell Distribution Width 12.3 % (11.0-16.0); White Blood Count 6.9 X10*3/uL (4.8-10.8)
[2022-11-29 11:28] LABS: Alanine Aminotransferase 30 U/L (0-40); Albumin Level 4.5 g/dL (3.5-5.0); Alkaline Phosphatase 55 U/L (39-117); Anion Gap 14 (12-20); Aspartate Amino Transferase 22 U/L (5-37); Bilirubin Total 0.7 mg/dL (0.0-1.0); Blood Urea Nitrogen 36 mg/dL (9-16); Calcium 9.7 mg/dL (8.4-10.2); Carbon Dioxide 22 mmol/L (22-29); Chloride 106 mmol/L (96-108); Estimated Glomerular Filt Rate 50; Glucose Fasting 176 mg/dL (60-99); Potassium 5.1 mmol/L (3.3-5.1); Sodium 137 mmol/L (135-145); Total Protein 7.3 g/dL (6.5-8.0)
[2022-11-29 11:48] LABS: HIV AB/AG Nonreactive (Nonreactive); HIV Num 1 0.07 S/CO (0.00-0.99)
[2022-12-02 20:08] LABS: Immunoglobulin E 3063 kU/L (<OR=114)
== END 2022-11-29 10:11 | disposition home or self-care (01) ==
LOC: HO.LAB 10:10
PROVIDERS: Nurse Practitioner Family; PCP Family Medicine; Visit Provider Family Medicine
DX: Z00.00 Encounter for general adult medical examination without abnormal findings (principal); Z11.4 Encounter for screening for human immunodeficiency virus [HIV]; R79.89 Other specified abnormal findings of blood chemistry; R06.02 Shortness of breath; R06.09 Other forms of dyspnea; Z20.6 Contact with and (suspected) exposure to human immunodeficiency virus [HIV]; Z91.09 Other allergy status, other than to drugs and biological substances
CPT/HCPCS: 36415; 71046; 80053; 82785; 85025; 86003; 87389

== ENCOUNTER → 2022-11-29 10:11 | Outpatient (BNV) | payer MEDICARE, MEDICAID, SELFPAY | PROVIDERS: PCP Family Medicine; Visit Provider Hospitalist | DX: R06.09 Other forms of dyspnea (principal) | CPT/HCPCS: 94060; 94727; 94729 ==

== ENCOUNTER 2022-12-17 14:32 | Outpatient (AMB) | payer MEDICARE, MEDICAID, SELFPAY ==
--- NOTE | 2022-12-17 14:46 | MHC.OFFVIS ---
Intake Vital Signs 12/17/22 14:47 Height 5 ft 6 in Weight 214 lb 15.211 oz BMI 34.7 BP 108/60 Blood Pressure Location Lt brachial Position Sitting Pulse 64 Pulse Source Pulse Oximeter Pulse Oximetry (%) 97 Oxygen Delivery Method Room Air Intake Visit Reasons: COPD Community Mental Health Social Worker Required: No Accompanied by: Self / Same As Patient Allergies No Known Allergies Allergy (Verified 12/17/22 14:53) Medication List - Last Reconciled 12/17/22 by Kourtney Carter LPN aspirin (St Von Aspirin) 81 mg PO DAILY blood sugar diagnostic (FreeStyle Lite Strips) DX: E11.9, test blood sugar once a day, 90 days blood-glucose meter (FreeStyle Lite Meter kit) DX: E11.9, test blood sugar once a day, duration 999 days budesonide-formoterol 80-4.5 mcg/actuation (Symbicort) 2 puffs inhalation Q12H buspirone 5 mg PO DAILY buspirone 15 mg PO DAILY 30 days cetirizine 10 mg PO DAILY PRN 90 days clonazepam 1.5 mg PO BEDTIME ezetimibe 10 mg PO DAILY glipizide ER 2.5 mg PO QAM 30 days hydrochlorothiazide 25 mg PO DAILY hydrocodone-acetaminophen 10-325 mg 1 tab PO Q6H PRN lancets (FreeStyle Lancets) As directed levalbuterol tartrate 45 mcg/actuation 1 puff inhalation Q4-6H PRN lisinopril 40 mg PO DAILY metformin 250 mg (1/2 x 500 mg) PO BIDWMEAL 30 days metoprolol succinate ER 200 mg PO DAILY morphine 15 mg PO BEDTIME PRN pantoprazole 40 mg PO QPM 30 days HPI COPD HPI Details David is a pleasant 57 year old male, former tobacco smoker with an approximate 10 pack year history, quit 20 years ago, and current everyday heavy marijuana smoker. Since the last visit he reports decreasing the amount of marijuana and feels his overall mentation has improved. He continues to report dyspnea and chest tightness with moderate exertion and mowing the lawn. Today he presents to review results of lab work, PFT and response to symbicort. He does report a history of MIKE with prior CPAP therapy but had discontinued due to insurance coverage issues. He is interested in returning to CPAP therapy as he had significant improvements in daytime sleepiness, loud snoring and overall sleep. [facility] [place] Medical History Arthritis CAD (coronary artery disease) Chronic neck and back pain HTN (hypertension) On beta jamari at home Sleep apnea Substance abuse Surgical History H/O spinal fusion Hx of colonoscopy Hx of endoscopy Stented coronary artery Family History Mother COPD (chronic obstructive pulmonary disease) Cancer Father CAD (coronary artery disease) COPD (chronic obstructive pulmonary disease) Social History (Updated 12/17/22 @ 15:01 by Kourtney Carter LPN) Household Members: Family Housing: House Are you a primary nanny caregiver to a significant other at home: No Do you presently have visiting nurse or other home services: No Alcohol intake: former Patient Tobacco Use Status: Former Tobacco user Quit Date: yrs ago Tobacco use type: Cigarette Cigarette Packs Per Day: 1 Cigarettes Per Day: 20 Years Smoked: 20 Smoked in Last 30 Days: No e-Cigarette/Vaping Use: Never Used Second Hand Smoke Exposure: No Substance Use Type: Marijuana service: No Current occupational status: employed Current occupational exposures/hazards: No Cognitive needs: No Hearing needs: No Vision needs: No Review of Systems Const Denies chills, Reports daytime sleepiness, Denies excessive sweating, Denies fever(s), Reports headache(s), Denies night sweats and Reports snoring Eyes Denies dry eyes, Denies irritation and Reports itchy eyes ENT Reports Normal hearing present, Reports headache(s), Denies nasal congestion, Denies nasal discharge, Reports post nasal drip and Denies sore throat Card Denies chest pain, Denies chest pain at rest, Denies chest pain with activity, Denies leg edema, Reports dyspnea, Reports dyspnea on exertion, Denies orthopnea and Denies paroxysmal nocturnal dyspnea Resp Denies chest congestion, Denies hemoptysis, Denies excessive phlegm production, Denies pain on inspiration, Denies pain with cough, Reports dyspnea, Reports dyspnea on exertion, Reports snoring and Denies stridor Musc Denies myalgias Neuro Reports Normal hearing present and Reports headache(s) Endo Denies excessive sweating Librado/Lymph Denies lymphadenopathy Aller/Immun Reports itchy eyes and Reports seasonal rhinorrhea Physical Exam Vital Signs: Last Vital Signs Pulse 64 12/17/22 14:47 BP 108/60 12/17/22 14:47 Pulse Ox 97 12/17/22 14:47 Oxygen Delivery Method Room Air 12/17/22 14:47 BMI result Body Mass Index 34.7 Const General: cooperative, healthy appearing, comfortable, no acute distress, well developed and alert Nutritional Appearance: obese Orientation/consciousness: patient oriented x3 Limitations: no limitations HEENT Head: Yes normal to inspection, Yes normocephalic and Yes atraumatic Ears: hearing grossly normal bilaterally and external ears normal Eyes General: appearance normal, both eyes and all related structures Eyelids: Yes eyelids normal Sclerae: sclerae normal EOM: EOMs intact bilaterally Neck Neck: Yes normal visual inspection and Yes no lymphadenopathy Lymphatic: no lymphadenopathy noted Chest Chest palpation & inspection: normal inspection of the chest Resp Effort & Inspection: normal respiratory effort, able to speak in complete sentences, no audible wheezes, no cough, no stridor, not tachypneic, no tripod positioning and no use of accessory muscles Auscultation: clear to auscultation bilaterally Cardio Jugular venous distension: no JVD Rate: regular rate Rhythm: regular rhythm Skin Other: warm, dry General skin exam: no rashes or lesions noted Neuro General: patient oriented x3 Cranial nerves: Yes Normal hearing present Cognition (Neuro): normal cognition Gait exam (Neuro): Normal gait present Extrem General: Yes normal to inspection, Yes capillary refill normal, Yes no clubbing, cyanosis or edema and Yes no pedal edema Psych Appearance: grossly normal and well kempt Speech and movement: Normal speech and movement present and Clear speech present Affect: normal affect Attitude: cooperative Thought process: Normal thought process present Thought content: Normal thought content present Insight: Good insight present (Psych) Judgement: Good judgement present (Psych) Results Reviewed Results Reviewed: [address] [address] XRay Report Signed Patient: David Lindsey MR#: [id number] : 1965 Acct:[id number] Age/Sex: 57 / M ADM Date: 11/29/22 Loc: HO.LAB Ordering Physician: Ivan Ash MD Date of Service: 11/29/22 Procedure(s): XR chest 2V Accession Number(s): [id number] cc: Ivan Ash MD~ EXAMINATION: XR CHEST CLINICAL INFORMATION: Shortness of breath. COMPARISON: None available. TECHNIQUE: 2 views of the chest were obtained. FINDINGS: No significant abnormality is noted involving the heart, lungs, mediastinum, bony thorax or soft tissues. Mild degenerative changes are present in the spine and ACDF hardware noted in the lower cervical spine. XR/XR chest 2V IMPRESSION: No acute intrathoracic disease. Assessment & Plan Assessment & Plan (1) Dyspnea on exertion: Code(s): R06.09 - Other forms of dyspnea (2) Environmental allergies: Code(s): Z91.09 - Other allergy status, other than to drugs and biological substances (3) Daytime somnolence: Code(s): R40.0 - Somnolence Plan David returns to review results of lab work and PFT. We reviewed his RAST testing and it revealed multiple environmental allergens and an IgE level of 3063. PFT above, did not reveal any obstructive or restrictive defects and lung volumes and DLCO within normal limits. Discussed the significance of these results and the possibility he may be allergic to a component of marijuana or another environmental exposure. Recommended using an antihistamine BID. Given patient's persistent dyspnea on exertion and intermittent cough, will send for chest CT. Reviewed response to symbicort but patient admitted to only using once per day and has not been using his xopenex when he feels dyspnea. So unable to accurately assess response. Advised patient to use symbicort as prescribed, or can try Breo QD. Will also send patient for home sleep study due to loud snoring, daytime somnolence and BMI of 34. Will follow up after CT and sleep study to review results. All questions were answered and patient is in agreement of plan. Orders: Orders RT home sleep study Today R06.83 - Snoring, R40.0 - Somnolence CT chest wo IV con Today R06.09 - Other forms of dyspnea Coding Level of Care Code Est Pt Level 4 (66056) Diagnoses Dyspnea on exertion R06.09 Environmental allergies Z91.09 Daytime somnolence R40.0
[2022-12-17 14:47] VITALS: BP 108/60; PULSE 64; O2SAT 97; BMI 34.7
== END 2022-12-17 15:34 | disposition home or self-care (01) ==
PROVIDERS: PCP Family Medicine; Visit Provider Nurse Practitioner Family
DX: R06.09 Other forms of dyspnea (principal); Z91.09 Other allergy status, other than to drugs and biological substances; R40.0 Somnolence
CPT/HCPCS: 99214

== ENCOUNTER → 2022-12-17 14:32 | Outpatient (BNVA) | payer MEDICARE, MEDICAID, SELFPAY | PROVIDERS: PCP Family Medicine; Visit Provider Nurse Practitioner Family | DX: R06.09 Other forms of dyspnea (principal); Z91.09 Other allergy status, other than to drugs and biological substances; R40.0 Somnolence | CPT/HCPCS: 99212 ==

== ENCOUNTER 2023-01-06 14:55 | Outpatient (REF) | payer MEDICARE, MEDICAID, SELFPAY ==
--- NOTE | ~2023-01-06 | CT_ITS ---
EXAMINATION: CT CHEST WITHOUT CONTRAST CLINICAL INFORMATION: Dyspnea COMPARISON: 11/29/2022 chest radiograph TECHNIQUE: Multidetector volumetric CT imaging of the chest was done. Axial MIP volume rendering provided. Sagittal and coronal reformatted images were obtained. This CT examination was performed using dose optimization techniques as appropriate, variously including the following: *Automated exposure control *Adjustment of mA and/or kV according to patient size (this includes techniques or standardized protocols for targeted exams where dose is matched to indication/reason for exam; i.e. extremities or head) *Use of iterative reconstruction technique DLP: 245 mGy-cm FINDINGS: SOURCING MANAGER: Thoracic spurring LUNGS: Trachea and bronchi are patent. NODULES: RUL: 2 mm, 3:16, 3 mm 3:17 RML: 3 mm subpleural, 3:28 and 3:33. ALESSANDRO: 3 mm, 3:23. PLEURA: Left fissural lymph node, 3:23. MEDIASTINUM: Thyroid is unremarkable. No pathologic lymphadenopathy. Heart size within normal limits. No pericardial effusion. Nonaneurysmal aorta with atherosclerotic calcifications. Nondilated pulmonary arteries. CORONARY ARTERY CALCIFICATION: Severe PLEURA: There is no pleural effusion. No pleural mass or thickening. AXILLA: No lymphadenopathy. UPPER ABDOMEN: Small gallstone. OSSEOUS STRUCTURES: Partial visualization of T1 surgical hardware. Degenerative changes. CT/CT chest wo IV con IMPRESSION: Multiple pulmonary nodules, none larger than 3 mm. Per Fleischner criteria, in low-risk patient, no further follow-up. In unknown or high risk patients, optional CT at 12 months. Stable at 12 months, no further follow-up. Cholelithiasis.
== END 2023-01-06 14:56 | disposition home or self-care (01) ==
LOC: HO.CT 14:55
PROVIDERS: PCP Family Medicine; Visit Provider Nurse Practitioner Family
DX: R06.09 Other forms of dyspnea (principal)
CPT/HCPCS: 71250

== ENCOUNTER 2023-01-14 09:22 | Outpatient (AMB) | payer MEDICARE, MEDICAID, SELFPAY ==
--- NOTE | 2023-01-14 09:29 | MHC.PC.OV ---
Vital Signs 01/14/23 09:30 Height 5 ft 6 in Weight 214 lb 4 oz BMI 34.6 BP 118/62 Blood Pressure Location Lt brachial Position Sitting Pulse 60 Pulse Source Pulse Oximeter Pulse Oximetry (%) 97 Oxygen Delivery Method Room Air Intake Visit Reasons: f/u diabetes Intake Note: Patient is here for check up on his diabetes. Patient has a sliver in his finger and neck pain and shoulder on his right side. Allergies No Known Allergies Allergy (Verified 01/14/23 09:33) Tobacco use date assessed: 01/14/23 Dental Screening Dental Screen Date: 01/14/23 Did you have a dental visit in the last 12 months?: Yes Did you have a dental problem in the last 6 months where you did not have access to dental care?: No Was dental information given to patient?: Patient has dentist HPI f/u diabetes HPI Details 57 y/o male with hx of CAD with stent presents to f/u diabetes. Had referred him to diabetic teaching and had given him scripts for testing supplies. Last A1c 10/17/22 was 6.7%. A1c today 01/14/23 is 5.8%. He is on metformin 250mg b.i.d. and glipizide 2.5mg. Blood pressure today 118/62. He is on lisinopril 40mg, hydrochlorothiazide 25mg and metoprolol 200mg daily. Pt has complaints of a cervical radiculopathy today - tingling with bilateral hands and neck/shoulder pain. He denies any symptoms on his feet. HPI Comments History of Present Illness Details Documentation assistance for Ivan Ash MD, was provided by Yan Gao,? Residential Sales Executive on 01/14/2023 10:16 AM VALARIE. Brittany, Dr. Ash, have read, observed, and verified documentation.? PFSH Medical History Arthritis CAD (coronary artery disease) Chronic neck and back pain HTN (hypertension) On beta jamari at home Sleep apnea Substance abuse Surgical History H/O spinal fusion Hx of colonoscopy Hx of endoscopy Stented coronary artery Family History Mother COPD (chronic obstructive pulmonary disease) Cancer Father CAD (coronary artery disease) COPD (chronic obstructive pulmonary disease) Social History Household Members: Family Housing: House Are you a primary intensive care specialist to a significant other at home: No Do you presently have visiting nurse or other home services: No Alcohol intake: former Patient Tobacco Use Status: Former Tobacco user Quit Date: yrs ago Tobacco use type: Cigarette Cigarette Packs Per Day: 1 Cigarettes Per Day: 20 Years Smoked: 20 e-Cigarette/Vaping Use: Never Used Second Hand Smoke Exposure: No Substance Use Type: Marijuana service: No Current occupational status: employed Current occupational exposures/hazards: No Cognitive needs: No Hearing needs: No Vision needs: No Questionnaire Thrive Questionnaire Date Thrive assessed: 06/18/22 MCKENNA-7 AMB Questionnaire MCKENNA-7 Date MCKENNA - 7 assessed: 06/18/22 Source: Developed by Drs. Junior Richards, Vania Vázquez, Fred Boudreaux and colleagues, with an educational zacarias from [employer]. Physical exam (Primary Care) Vital Signs: Last Vital Signs Pulse 60 01/14/23 09:30 BP 118/62 01/14/23 09:30 Pulse Ox 97 01/14/23 09:30 Oxygen Delivery Method Room Air 01/14/23 09:30 BMI result Body Mass Index 34.6 Tobacco/Smoking Status: Tobacco use Status Tobacco use date assessed 01/14/23 01/14/23 09:41 Patient Tobacco Use Status Former Tobacco user 01/14/23 09:30 Tobacco use type Cigarette 01/14/23 09:30 e-Cigarette/Vaping Use Never Used 01/14/23 09:30 Thrive Assessment: Date of Thrive Assessment Date Thrive assessed 06/18/22 01/14/23 09:30 Results AMB Hemoglobin A1c AMB Hemoglobin A1c 5.8 % Last Edit by Meghan Aguayo CMA on 01/14/23 10:01 Results Reviewed Results Reviewed: Laboratory Last Values Hgb A1c (Clinic) 5.8 % (4.0-6.0) 01/14/23 10:00 Assessment and Plan Assessment & Plan (1) Diabetes: Code(s): E11.9 - Type 2 diabetes mellitus without complications Plan: A1c now 5.8% which is good control. Slight bump in his creatinine. Decreasing his metformin from 500 mg daily dose to 250 mg daily dose and continuing glipizide ER as prescribed Continue diabetic diet (2) CAD (coronary artery disease): Code(s): I25.10 - Atherosclerotic heart disease of [place] coronary artery without angina pectoris (3) HTN (hypertension): Code(s): I10 - Essential (primary) hypertension Plan: Blood pressure is well controlled. Goal is less than 130/80 Continue current medication regimen (4) Fatigue: Code(s): R53.83 - Other fatigue Plan: Ongoing fatigue. Follow-up with sleep medicine Also had borderline anemia at last lab check. Recheck this. (5) Cervical radiculopathy: Code(s): M54.12 - Radiculopathy, cervical region Plan: Tingling bilateral hands with neck and shoulder pain bilaterally. No symptoms in feet Check x-ray of cervical spine Check inflammatory markers Start diclofenac gel. Following up on creatinine level and if improved, can use an oral NSAID (6) Borderline anemia: Code(s): D64.9 - Anemia, unspecified Plan: Rechecking this. Orders: Orders XR cervical spine 2V Today M54.12 - Radiculopathy, cervical region CRP High Sensitivity Today M54.12 - Radiculopathy, cervical region Erythrocyte Sedimentation Rate Today M54.12 - Radiculopathy, cervical region PT Evaluation and Treatment Today M54.12 - Radiculopathy, cervical region Comprehensive Met. Panel Today R79.89 - Other specified abnormal findings of blood chemistry Complete Blood Count Auto Diff Today R53.83 - Other fatigue, Z00.00 - Encounter for general adult medical examination without abnormal findings AMB Hemoglobin A1c Today Z13.9 - Encounter for screening, unspecified Medications: New diclofenac sodium 1% apply to single knee, ankle, foot; for foot includes sole/toes/top of foot 4 grams topical TID 400 grams 3RF 28 days Changed From metformin 250 mg (1/2 x 500 mg) PO BIDWMEAL 30 days 30 tabs 1RF To metformin 250 mg (1/2 x 500 mg) PO DAILY 90 days 45 tabs 3RF Refilled glipizide ER 2.5 mg PO QAM 30 days 90 tabs 2RF Coding Level of Care Code Est Pt Level 4 (25925) Diagnoses Diabetes E11.9 CAD (coronary artery disease) I25.10 HTN (hypertension) I10 Fatigue R53.83 Cervical radiculopathy M54.12 Borderline anemia D64.9
[2023-01-14 09:30] VITALS: BP 118/62; PULSE 60; O2SAT 97; BMI 34.6
== END 2023-01-14 10:42 | disposition home or self-care (01) ==
PROVIDERS: PCP Family Medicine; Visit Provider Family Medicine
DX: E11.9 Type 2 diabetes mellitus without complications (principal); I25.10 Atherosclerotic heart disease of native coronary artery without angina pectoris; I10 Essential (primary) hypertension; R53.83 Other fatigue; M54.12 Radiculopathy, cervical region; D64.9 Anemia, unspecified
CPT/HCPCS: 83036; 99214

== ENCOUNTER 2023-01-22 14:55 | Outpatient (REF) | payer MEDICARE, MEDICAID, SELFPAY ==
--- NOTE | ~2023-01-22 | XR_ITS ---
EXAMINATION: XR CERVICAL SPINE CLINICAL INFORMATION: Pain right side of the neck and upper shoulder region. COMPARISON: None available. TECHNIQUE: 3 views of the cervical spine were obtained. FINDINGS: There is normal cervical lordosis. There is ventral plate and screws for C5, C6 and C7 fusion. Visualized vertebral heights, alignment and nonfused disc heights are normal. There is mild ventral spondylosis C2-C3, C3-C4 and C4-C5 disc levels. The prevertebral soft tissues are normal. No visible acute fracture or dislocation seen. XR/XR cervical spine 2V IMPRESSION: 1. Ventral plate and screws for C5, C6 and C7 fusion. 2. There is mild ventral spondylosis C2-C3 through C4-C5 disc levels.
== END 2023-01-22 14:56 | disposition home or self-care (01) ==
LOC: HO.XRAY 14:55
PROVIDERS: PCP Family Medicine; Visit Provider Family Medicine
DX: M54.12 Radiculopathy, cervical region (principal)
CPT/HCPCS: 72040

== ENCOUNTER → 2023-02-04 14:51 | Outpatient (REF) | payer MEDICARE, MEDICAID, SELFPAY | LOC: HO.SL 14:51 | PROVIDERS: Visit Provider Nurse Practitioner Family | DX: G47.10 Hypersomnia, unspecified (principal); R40.0 Somnolence; R06.83 Snoring | CPT/HCPCS: 95806 ==

== ENCOUNTER → 2023-02-04 15:17 | Outpatient (BNV) | payer MEDICARE, MEDICAID, SELFPAY | PROVIDERS: Visit Provider Internal Medicine | DX: G47.10 Hypersomnia, unspecified (principal) | CPT/HCPCS: 95806 ==

== ENCOUNTER 2023-02-12 10:58 | Outpatient (REF) | payer MEDICARE, MEDICAID, SELFPAY ==
[2023-02-12 14:42] LABS: MANUAL DIFF FLAG NO
[2023-02-12 15:06] LABS: Basophils Absolute Auto 0.1 X10*3/uL (0.0-0.2); Eosinophils Absolute Auto 0.3 X10*3/uL (0.0-0.4); Eosinophils Percent Auto 3.6 % (0-4); Hematocrit 41.8 % (42.0-52.0); Hemoglobin 14.2 g/dl (14.0-18.0); Imm Gran Abs Auto 0.02 X10*3/uL (0.00-0.03); Imm Gran Pct Auto 0.3 % (0.0-0.4); Lymphocytes Absolute Auto 1.9 X10*3/uL (1.2-4.9); Lymphocytes Percent Auto 26.7 % (20-40); Mean Corpuscular Hemoglobin 32.3 pg (27.0-33.0); Mean Corpuscular Volume 95.2 fL (80.0-98.0); Mean Platelet Volume 9.3 fL (9.4-12.4); Monocytes Absolute Auto 0.6 X10*3/uL (0.1-1.2); Monocytes Percent Auto 8.5 % (2-11); Neutrophils Absolute Auto 4.3 x10*3/uL (2.0-8.3); Neutrophils Percent Auto 59.9 % (45-73); Platelet Count 235 X10*3/uL (160-400); Red Blood Count 4.39 X10*6/uL (4.60-5.80); Red Cell Distribution Width 12.9 % (11.0-16.0); White Blood Count 7.2 X10*3/uL (4.8-10.8)
[2023-02-12 15:17] LABS: Alanine Aminotransferase 18 U/L (0-40); Albumin Level 4.1 g/dL (3.5-5.0); Alkaline Phosphatase 57 U/L (39-117); Anion Gap 13 (12-20); Aspartate Amino Transferase 16 U/L (5-37); Bilirubin Total 0.3 mg/dL (0.0-1.0); Blood Urea Nitrogen 27 mg/dL (9-16); Calcium 9.2 mg/dL (8.4-10.2); Carbon Dioxide 24 mmol/L (22-29); Chloride 108 mmol/L (96-108); Estimated Glomerular Filt Rate 51; Glucose Random 182 mg/dL (60-115); Potassium 4.8 mmol/L (3.3-5.1); Sodium 140 mmol/L (135-145)
[2023-02-12 15:57] LABS: Erythrocyte Sedimentation Rate 7 MM/HR (0-15)
[2023-02-14 15:54] LABS: CRP High Sensitivity 2.2 mg/L
== END 2023-02-12 10:59 | disposition home or self-care (01) ==
LOC: HO.WFDLDS 10:58
PROVIDERS: Visit Provider Family Medicine
DX: Z00.00 Encounter for general adult medical examination without abnormal findings (principal); M54.12 Radiculopathy, cervical region; R79.89 Other specified abnormal findings of blood chemistry; R53.83 Other fatigue
CPT/HCPCS: 36415; 80053; 85025; 85652; 86141

== ENCOUNTER 2023-02-17 | Outpatient (REF) | payer MEDICARE, MEDICAID, SELFPAY | END 2023-02-17 00:01 | disposition home or self-care (01) | LOC: CF | PROVIDERS: Visit Provider Nurse Practitioner Family | DX: J45.909 Unspecified asthma, uncomplicated (principal); R06.09 Other forms of dyspnea; R91.8 Other nonspecific abnormal finding of lung field; F12.90 Cannabis use, unspecified, uncomplicated; Z91.09 Other allergy status, other than to drugs and biological substances; Z87.891 Personal history of nicotine dependence; Z79.899 Other long term (current) drug therapy | CPT/HCPCS: 99212 ==

== ENCOUNTER 2023-02-17 14:41 | Outpatient (AMB) | payer MEDICARE, MEDICAID, SELFPAY ==
[2023-02-17 14:50] VITALS: BP 124/62; PULSE 64; O2SAT 98; BMI 34.4
--- NOTE | 2023-02-17 14:50 | A.OFFVIS_ITS ---
Intake Vital Signs 3 02/17/23 14:50 Height 5 ft 6 in Weight 213 lb BMI 34.4 BP 124/62 Blood Pressure Location Lt brachial Position Sitting Pulse 64 Pulse Source Pulse Oximeter Pulse Oximetry (%) 98 Intake Visit Reasons: Asthma Finish Photographer Required: No Sample Card Maker: Sample Card Maker offered & declined Accompanied by: Self / Same As Patient Allergies No Known Allergies Allergy (Verified 02/17/23 14:53) Medication List - Last Reconciled 02/17/23 by Kourtney Carter LPN aspirin (St Von Aspirin) 81 mg PO DAILY blood sugar diagnostic (FreeStyle Lite Strips) DX: E11.9, test blood sugar once a day, 90 days blood-glucose meter (FreeStyle Lite Meter kit) DX: E11.9, test blood sugar once a day, duration 999 days budesonide-formoterol 80-4.5 mcg/actuation (Symbicort) 2 puffs inhalation Q12H buspirone 5 mg PO DAILY buspirone 15 mg PO DAILY 30 days cetirizine 10 mg PO DAILY PRN 90 days clonazepam 1.5 mg PO BEDTIME diclofenac sodium 1% 4 grams topical TID 28 days ezetimibe 10 mg PO DAILY glipizide ER 2.5 mg PO QAM 30 days hydrochlorothiazide 25 mg PO DAILY hydrocodone-acetaminophen 10-325 mg 1 tab PO Q6H PRN lancets (FreeStyle Lancets) As directed levalbuterol tartrate 45 mcg/actuation 1 puff inhalation Q4-6H PRN lisinopril 40 mg PO DAILY metformin 250 mg (1/2 x 500 mg) PO DAILY 90 days metoprolol succinate ER 200 mg PO DAILY morphine 15 mg PO BEDTIME PRN pantoprazole 40 mg PO QPM 30 days HPI Asthma 2 HPI0 Details David is a pleasant 57 year old male, former tobacco smoker with an approximate 10 pack year history, quit 20 years ago, and current everyday heavy marijuana smoker. PFT unremarkable. Since the last visit he reports excellent control of symptoms using symbicort. He denies any chest tightness, dyspnea, cough or wheezing. Today he presents to review results of chest CT and home sleep study. [facility] Medical History Arthritis CAD (coronary artery disease) Chronic neck and back pain HTN (hypertension) On beta jamari at home Sleep apnea Substance abuse Surgical History H/O spinal fusion Hx of colonoscopy Hx of endoscopy Stented coronary artery Family History Mother COPD (chronic obstructive pulmonary disease) Cancer Father CAD (coronary artery disease) COPD (chronic obstructive pulmonary disease) Social History (Updated 02/17/23 @ 14:55 by Kourtney Carter LPN) Household Members: Family Housing: House Are you a primary medicare contact specialist to a significant other at home: No Do you presently have visiting nurse or other home services: No Alcohol intake: former Patient Tobacco Use Status: Former Tobacco user Quit Date: yrs ago Tobacco use type: Cigarette Cigarette Packs Per Day: 1 Cigarettes Per Day: 20 Years Smoked: 20 e-Cigarette/Vaping Use: Never Used Second Hand Smoke Exposure: No Substance Use Type: Marijuana service: No Current occupational status: employed Current occupational exposures/hazards: No Cognitive needs: No Hearing needs: No Vision needs: No Review of Systems Const Denies chills, Denies excessive sweating, Denies fever(s) and Denies night sweats Eyes Denies dry eyes, Denies irritation and Reports itchy eyes ENT Reports Normal hearing present, Denies nasal congestion, Denies nasal discharge, Reports post nasal drip and Denies sore throat Card Denies chest pain, Denies chest pain at rest, Denies chest pain with activity, Denies leg edema, Denies orthopnea and Denies paroxysmal nocturnal dyspnea Resp Denies chest congestion, Denies hemoptysis, Denies excessive phlegm production, Denies pain on inspiration, Denies pain with cough and Denies stridor Musc Denies myalgias Neuro Reports Normal hearing present Endo Denies excessive sweating Librado/Lymph Denies lymphadenopathy Aller/Immun Reports itchy eyes and Reports seasonal rhinorrhea Physical Exam Vital Signs: Last Vital Signs Pulse 64 02/17/23 14:50 BP 124/62 02/17/23 14:50 Pulse Ox 98 02/17/23 14:50 BMI result Body Mass Index 34.4 Const General: cooperative, healthy appearing, comfortable, no acute distress, well developed and alert Nutritional Appearance: obese Orientation/consciousness: patient oriented x3 Limitations: no limitations HEENT Head: Yes normal to inspection, Yes normocephalic and Yes atraumatic Ears: hearing grossly normal bilaterally and external ears normal Eyes General: appearance normal, both eyes and all related structures Eyelids: Yes eyelids normal Sclerae: sclerae normal EOM: EOMs intact bilaterally Neck Neck: Yes normal visual inspection and Yes no lymphadenopathy Lymphatic: no lymphadenopathy noted Chest Chest palpation & inspection: normal inspection of the chest Resp Effort & Inspection: normal respiratory effort, able to speak in complete sentences, no audible wheezes, no cough, no stridor, not tachypneic, no tripod positioning and no use of accessory muscles Auscultation: clear to auscultation bilaterally Cardio Jugular venous distension: no JVD Rate: regular rate Rhythm: regular rhythm Skin Other: warm, dry General skin exam: no rashes or lesions noted Neuro General: patient oriented x3 Cranial nerves: Yes Normal hearing present Cognition (Neuro): normal cognition Gait exam (Neuro): Normal gait present Extrem General: Yes normal to inspection, Yes capillary refill normal, Yes no clubbing, cyanosis or edema and Yes no pedal edema Psych Appearance: grossly normal and well kempt Speech and movement: Normal speech and movement present and Clear speech present Affect: normal affect Attitude: cooperative Thought process: Normal thought process present Thought content: Normal thought content present Insight: Good insight present (Psych) Judgement: Good judgement present (Psych) Results Reviewed Results Reviewed: [address] [address] [address] Scan Report Signed Patient: David Lindsey MR#: [id number] : 1965 Acct:[id number] Age/Sex: 57 / M ADM Date: 01/06/23 Loc: HO.CT Attending Dr: Ashleigh Horta NP Ordering Physician: Ashleigh Horta NP Date of Service: 01/06/23 Procedure(s): CT chest wo IV con Accession Number(s): [id number] cc: Ashleigh Horat NP~ EXAMINATION: CT CHEST WITHOUT CONTRAST CLINICAL INFORMATION: Dyspnea COMPARISON: 11/29/2022 chest radiograph TECHNIQUE: Multidetector volumetric CT imaging of the chest was done. Axial MIP volume rendering provided. Sagittal and coronal reformatted images were obtained. This CT examination was performed using dose optimization techniques as appropriate, variously including the following: *Automated exposure control *Adjustment of mA and/or kV according to patient size (this includes techniques or standardized protocols for targeted exams where dose is matched to indication/reason for exam; i.e. 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 NODULES: RUL: 2 mm, 3:16, 3 mm 3:17 RML: 3 mm subpleural, 3:28 and 3:33. ALESSANDRO: 3 mm, 3:23. PLEURA: Left fissural lymph node, 3:23. MEDIASTINUM: Thyroid is unremarkable. No pathologic lymphadenopathy. Heart size within normal limits. No pericardial effusion. Nonaneurysmal aorta with atherosclerotic calcifications. Nondilated pulmonary arteries. CORONARY ARTERY CALCIFICATION: Severe PLEURA: There is no pleural effusion. No pleural mass or thickening. AXILLA: No lymphadenopathy. UPPER ABDOMEN: Small gallstone. OSSEOUS STRUCTURES: Partial visualization of T1 surgical hardware. Degenerative changes. CT/CT chest wo IV con IMPRESSION: Multiple pulmonary nodules, none larger than 3 mm. Per Fleischner criteria, in low-risk patient, no further follow-up. In unknown or high risk patients, optional CT at 12 months. Stable at 12 months, no further follow-up. Cholelithiasis. Assessment & Plan Assessment & Plan (1) Asthma: Code(s): J45.909 - Unspecified asthma, uncomplicated (2) Dyspnea on exertion: Code(s): R06.09 - Other forms of dyspnea (3) Multiple pulmonary nodules: Code(s): R91.8 - Other nonspecific abnormal finding of lung field (4) Environmental allergies: Code(s): Z91.09 - Other allergy status, other than to drugs and biological substances Plan Reviewed chest CT which revealed multiple pulmonary nodules <4 mm. Will repeat in one year and if stable no need for further follow up, unless new symptoms develop. Home sleep study negative for sleep apnea. Patient reported notable improvements in dyspnea and chest tightness with symbicort. Advised to continue current regimen. Will follow up in 6 months or sooner if needed. All questions were answered and patient is in agreement of plan. Orders: Orders 2 CT chest wo IV con 01/07/24 R91.8 - Other nonspecific abnormal finding of lung field Coding Level of Care Code Est Pt Level 4 (04679) Diagnoses Asthma J45.909 Dyspnea on exertion R06.09 Multiple pulmonary nodules R91.8 Environmental allergies Z91.09
== END 2023-02-17 15:31 | disposition home or self-care (01) ==
LOC: HO.HPSW 14:41
PROVIDERS: PCP Family Medicine; Visit Provider Nurse Practitioner Family
DX: J45.909 Unspecified asthma, uncomplicated (principal); R06.09 Other forms of dyspnea; R91.8 Other nonspecific abnormal finding of lung field; Z91.09 Other allergy status, other than to drugs and biological substances
CPT/HCPCS: 99212; 99214

== ENCOUNTER 2023-02-19 14:00 | Outpatient (RCR) | payer MEDICARE, MEDICAID, SELFPAY ==
--- NOTE | 2023-02-05 15:35 | MHC.PT.EP ---
[facility] [place] [facility] [place] [facility] [place] [facility] [address] Keshia Cintron [address] [phone] F: [phone] F: [phone] F: [phone] F: [phone] Physical Therapy Plan of Care Date of Evaluation: 02/05/23 Date of Surgery: CHRONIC Diagnosis: CERVICAL RADICULOPATHY Assessment: Pt IS 57 YO M REFERRED TO PT FROM DR FUNEZ WITH CERVCAL RADICULOPATHY. Pt WITH HX CERV FUSION (LUMBAR FUSION ALSO). PRESENTS WITH SIGNIFICANTLY WEAK R UE WITH PAIN (MULTI AREAS OF PAIN). FULL PROM R SHLDER. MIN RELIEF CORTISONE INJECTION. HAS NOT HAD MRI R SHLDER (?RC TEAR) OR NEURO FU (?WEAKNESS FROM C SPINE). WOULD BENEFIT FROM BOTH OF THESE. IN THE MEAN TIME, Pt MAY BENEFIT FROM PT TRIAL TO ADDRESS THIS WEAKNESS WITH TRIAL OF UE STRENGTHENING. Frequency and Duration: The patient will be seen 2X/WK X 8 WKS Short Term Goals: 1. INCREASED POSTURE AWARENESS AND AWARENESS SHLDER CARE 2. I HEP WITH DC EX PLAN Residential Goals: 1. INCREASED R UE STRENGTH AT LEAST 1 MM GRADE T/O 2. DECREASED R SHLDER/UE PAIN 3. LESS UE PARESTHESIA Treatment Plan: Modalities to reduce pain, spasms and effusion. Manual therapy to restore motion and function. Therapeutic exercise to improve strength and flexibility. Neuromuscular re-education for posture and balance. Therapeutic activities to return to functional activities of daily living. Electronically signed by: DARINEL INFANTE PT Please sign and return to therapist. Thank you for your referral.
--- NOTE | 2023-02-10 15:22 | MHC.PT.OD ---
[facility] [place] Office [place] Office [place] Office [address] Keshia Cintron [address] [phone] F: [phone] F: [phone] F: [phone] F: [phone] Physical Therapy Daily Note Diagnosis: CERVICAL RADICULOPATHY Date of Surgery: CHRONIC Date of Evaluation: 02/05/23 Date of Treatment: 02/10/23 Treatments to Date: 2 Cancellations to Date: No Shows to Date: Authorized Visits: Insurance End Date: Precautions/ Contraindications:NECK AND BACK SURGERY Partner hx HIV Hx substance abuse Dr. Junior Johnson- [facility]- sees him March 21 2023. Subjective: Reports today is a good day for him and is able to lift his arm, reports will be seeing physiatry in March, reports addition of a new muscle relaxer which is helping him sleep better and not waking at night due to pain. Pain Score and Location: 3 R SHLDER/UE Objective Flowsheet: Tests & Measures Had shoulder injection in R UE a few weeks ago from physiatry. Short lived relief DTRS Bicep absent R UE Tricep absent R UE L UE bicep 2+ L UE tricep absent Full PROM R shoulder, painful end range ER>IR Exercises Strength R shoulder flexion 3-/5, L 5/5, R shoulder abd 3-/5, L shoulder 5/5, R shoulder ER 3+5, L shoulder ER 5/5, R shoulder IR 3+/5, L shoulder IR 3+/5, R wrist flex 3+/5, R wrist ext 3+/5 compared to L 5/5, thenar L 5/5, R 3+/5. Sensation intact. Pt does express history of mobilization via tennis ball to R UT and scapular zone. Compensatory UT shrug and elevation overhead with lifting Assessment of patient strength/ROM, AROM R shoulder flexion 140, L 150 compensatory UT shrug with elevation, R ER passive near 90 mild sx end range, R IR passive to near full ROM no sx, Passive ADD no sx. AAROM UE stretch with aide of opposite hand overhead for ROM of R UE. Pt Education for AAROM R shoulder prn to promote mobility when stiff x 10 sec hold x 5R, use of ice prn for sx management over clothing, support of arm with pillow, isometric er/ir with shoulder, scapular retraction reviewed for home program. [address] [place] [address] Primary Care Office Visit Signed with Kate Patient: David LindseyMR#: [id number] : 1965Acct:[id number] Age/Sex: 57 / MADM/SER Date: 01/14/23 Loc: HO.HMGFMADM/SER Time:921 Attending Provider: Ivan Funez MD cc: Ivan Funez MD~ ADDENDUM He will follow-up in 1 month for cervical radiculopathy with radiation into bilateral hands. Labs and x-ray ordered. Also ordering physical therapy. Also discussed HIV Prep as his partner has HIV though her viral load is undetectable on suppression therapy. He will discuss further with his partner. Prep could cause more fatigue. Addendum Documented By:Ivan Funez MD01/14/23 1047 Addendum Signed By:<Electronically signed by Ivan Funez MD>01/14/23 1047 Vital Signs 01/14/23 09:30 Height 5 ft 6 in Weight 214 lb 4 oz BMI 34.6 BP 118/62 Blood Pressure Location Lt brachial Position Sitting Pulse 60 Pulse Source Pulse Oximeter Pulse Oximetry (%) 97 Oxygen Delivery Method Room Air Intake Visit Reasons: f/u diabetes Intake Note: Patient is here for check up on his diabetes. Patient has a sliver in his finger and neck pain and shoulder on his right side. Allergies No Known Allergies Allergy (Verified 01/14/23 09:33) Tobacco use date assessed: 01/14/23 Dental Screening Dental Screen Date: 01/14/23 Did you have a dental visit in the last 12 months?: Yes Did you have a dental problem in the last 6 months where you did not have access to dental care?: No Was dental information given to patient?: Patient has dentist HPI f/u diabetes HPI Details 57 y/o male with hx of CAD with stent presents to f/u diabetes. Had referred him to diabetic teaching and had given him scripts for testing supplies. Last A1c 10/17/22 was 6.7%. A1c today 01/14/23 is 5.8%. He is on metformin 250mg b.i.d. and glipizide 2.5mg. Blood pressure today 118/62. He is on lisinopril 40mg, hydrochlorothiazide 25mg and metoprolol 200mg daily. Pt has complaints of a cervical radiculopathy today - tingling with bilateral hands and neck/shoulder pain. He denies any symptoms on his feet. HPI Comments History of Present Illness Details Documentation assistance for Ivan Funez MD, was provided by Yan Gao,? Twister Tender on 01/14/2023 10:16 AM EST. I, Dr. Funez, have read, observed, and verified documentation.? [facility] Medical History Arthritis CAD (coronary artery disease) Chronic neck and back pain HTN (hypertension) On beta jamari at home Sleep apnea Substance abuse Surgical History H/O spinal fusion Hx of colonoscopy Hx of endoscopy Stented coronary artery Family History Mother COPD (chronic obstructive pulmonary disease) Cancer Father CAD (coronary artery disease) COPD (chronic obstructive pulmonary disease) Social History Household Members: Family Housing: House Are you a primary neonatal intensive care nurse to a significant other at home: No Do you presently have visiting nurse or other home services: No Alcohol intake: former Patient Tobacco Use Status: Former Tobacco user Quit Date: yrs ago Tobacco use type: Cigarette Cigarette Packs Per Day: 1 Cigarettes Per Day: 20 Years Smoked: 20 e-Cigarette/Vaping Use: Never Used Second Hand Smoke Exposure: No Substance Use Type: Marijuana service: No Current occupational status: employed Current occupational exposures/hazards: No Cognitive needs: No Hearing needs: No Vision needs: No Questionnaire Thrive Questionnaire Date Thrive assessed: 06/18/22 MCKENNA-7 AMB Questionnaire MCKENNA-7 Date MCKENNA - 7 assessed: 06/18/22 Source: Developed by Drs. Junior Richards, Vania B.Fred Santana and colleagues, with an educational zacarias from [employer] Physical exam (Primary Care) Vital Signs: Last Vital Signs Pulse 60 01/14/23 09:30 BP 118/62 01/14/23 09:30 Pulse Ox 97 01/14/23 09:30 Oxygen Delivery Method Room Air 01/14/23 09:30 BMI result Body Mass Index 34.6 Tobacco/Smoking Status: Tobacco use Status Tobacco use date assessed 01/14/23 01/14/23 09:41 Patient Tobacco Use Status Former Tobacco user 01/14/23 09:30 Tobacco use type Cigarette 01/14/23 09:30 e-Cigarette/Vaping Use Never Used 01/14/23 09:30 Thrive Assessment: Date of Thrive Assessment Date Thrive assessed 06/18/22 01/14/23 09:30 Results AMB Hemoglobin A1c AMB Hemoglobin A1c 5.8 % Last Edit by Meghan Aguayo CMA on 01/14/23 10:01 Results Reviewed Results Reviewed: Laboratory Last Values Hgb A1c (Clinic) 5.8 % (4.0-6.0) 01/14/23 10:00 Assessment and Plan Assessment & Plan (1) Diabetes: Code(s): E11.9 - Type 2 diabetes mellitus without complications Plan: A1c now 5.8% which is good control. Slight bump in his creatinine. Decreasing his metformin from 500 mg daily dose to 250 mg daily dose and continuing glipizide ER as prescribed Continue diabetic diet (2) CAD (coronary artery disease): Code(s): I25.10 - Atherosclerotic heart disease of craig coronary artery without angina pectoris (3) HTN (hypertension): Code(s): I10 - Essential (primary) hypertension Plan: Blood pressure is well controlled. Goal is less than 130/80 Continue current medication regimen (4) Fatigue: Code(s): R53.83 - Other fatigue Plan: Ongoing fatigue. Follow-up with sleep medicine Also had borderline anemia at last lab check. Recheck this. (5) Cervical radiculopathy: Code(s): M54.12 - Radiculopathy, cervical region Plan: Tingling bilateral hands with neck and shoulder pain bilaterally. No symptoms in feet Check x-ray of cervical spine Check inflammatory markers Start diclofenac gel. Following up on creatinine level and if improved, can use an oral NSAID (6) Borderline anemia: Code(s): D64.9 - Anemia, unspecified Plan: Rechecking this. Orders: Orders XR cervical spine 2V Today M54.12 - Radiculopathy, cervical region CRP High Sensitivity Today M54.12 - Radiculopathy, cervical region Erythrocyte Sedimentation Rate Today M54.12 - Radiculopathy, cervical region PT Evaluation and Treatment Today M54.12 - Radiculopathy, cervical region Comprehensive Met. Panel Today R79.89 - Other specified abnormal findings of blood chemistry Complete Blood Count Auto Diff Today R53.83 - Other fatigue, Z00.00 - Encounter for general adult medical examination without abnormal findings AMB Hemoglobin A1c Today Z13.9 - Encounter for screening, unspecified Medications: New diclofenac sodium 1% apply to single knee, ankle, foot; for foot includes sole/toes/top of foot 4 grams topical TID 400 grams 3RF 28 days Changed From metformin 250 mg (1/2 x 500 mg) PO BIDWMEAL 30 days 30 tabs 1RF To metformin 250 mg (1/2 x 500 mg) PO DAILY 90 days 45 tabs 3RF Refilled glipizide ER 2.5 mg PO QAM 30 days 90 tabs 2RF Coding Level of Care Code Est Pt Level 4 (34947) Diagnoses ED RE EVAL FINDINGS/RX PLAN, POSTURE ED Modalities Assessment: 02/10/23: Pt presents to PT expressing fluctuating strength/ROM of his R UE, notes Today is a good day and I can lift my arm but somedays I cannot hold a cup of coffee. Screening of cervical quadrant triggered sx R>LE forearm this date. He exhibits absent DTRS on his R UE and has noted MMT weakness with R UE compared to his L UE. Pt expressing history of cervical fusion, denies any history of MRI or CT of his neck. Does not have any current and has not seen specialist since Dr. Juarez did his cervical fusion surgery many years ago. Reports consulting with chiropractor for sx here and there. Expresses history of seeing a dispatcher street department in [facility] who manages his pain medication, states was recently prescribed a muscle relaxer which he feels is aiding his sx. He reports difficulty raising his arm overhead more so in the past year or so, some days he is able other days he is not able. Expresses weakness extending to wrist and inability to control his fingers R UE worse than left. Denies any recent nerve conduction/EMG testing. Pt may benefit from referral to transport specialist and/or neurologist ?EMG/NC to further work-up/assess weakness in his R UE as it appears to be related to his C/S C5/C6 myotome. His sx appear to be more neurological in nature and not consistent with a RTC injury. 02/05/23:Pt IS 57 YO M REFERRED TO PT FROM DR FUNEZ WITH CERVCAL RADICULOPATHY. Pt WITH HX CERV FUSION (LUMBAR FUSION ALSO). PRESENTS WITH SIGNIFICANTLY WEAK R UE WITH PAIN (MULTI AREAS OF PAIN). FULL PROM R SHLDER. MIN RELIEF CORTISONE INJECTION. HAS NOT HAD MRI R SHLDER (?RC TEAR) OR NEURO FU (?WEAKNESS FROM C SPINE). WOULD BENEFIT FROM BOTH OF THESE. IN THE MEAN TIME, Pt MAY BENEFIT FROM PT TRIAL TO ADDRESS THIS WEAKNESS WITH TRIAL OF UE STRENGTHENING. PT Plan: pt to see Dr. Funez on 02/26/23 for follow up... referral to transport specialist? neuro? RC/SCAP STRENGTHENING, UPPER BODY STRETCH/STRENGTHEN, ST WORK/MODALITIES PRN Short Term Goals: 1. INCREASED POSTURE AWARENESS AND AWARENESS SHLDER CARE 2. I HEP WITH DC EX PLAN Nursing Home Goals: 1. INCREASED R UE STRENGTH AT LEAST 1 MM GRADE T/O 2. DECREASED R SHLDER/UE PAIN 3. LESS UE PARESTHESIA Electronically signed by: Kisha Mcrae, PT, DPT
--- NOTE | 2023-03-28 14:43 | MHC.PT.DC ---
[facility] [place] Office [place] Office [place] Office [address] Keshia Cintron [address] [phone] F: [phone] F: [phone] F: [phone] F: [phone] Physical Therapy Discharge Report Diagnosis: CERVICAL RADICULOPATHY Date of Surgery: CHRONIC Date of Evaluation: 02/05/23 Date of Discharge: 03/28/23 Treatments to Date: 3 Cancellations to Date: No Shows to Date: Discharge Status: Improved Function Independent with HEP Discharge Summary: PER ASSESSMENT FROM LAST NOTE ON 02/19/23 Pt DOING WELL. ABLE TO ACTIVELY MOVE R UE. REPORTS SOME GENERALIZED PARESTHESIA ON OPPOSITE SIDE (L). SHORTENED SESSION BECAUSE OF COVID POSSIBILITY. Pt THEN CANCELLED VISITS DUE TO COVID +. NO FURTHER APPTS SCHEDULED (LAST WAS SCHEDULED FOR 02/28) Electronically signed by: DARINEL INFANTE PT Please sign and return to therapist. Thank you for your referral.
== END 2023-03-28 14:43 | disposition home or self-care (01) ==
LOC: HO.PTWFD 14:00
PROVIDERS: PCP Family Medicine; Visit Provider Family Medicine
DX: M54.12 Radiculopathy, cervical region (principal)
CPT/HCPCS: 97110; 97162; 97530; 97535

== ENCOUNTER 2023-02-25 | Outpatient (REF) | payer MEDICARE, MEDICAID, SELFPAY | END 2023-02-25 00:01 | disposition home or self-care (01) | LOC: HO.LNP | PROVIDERS: Visit Provider Family Medicine | DX: Z11.52 Encounter for screening for COVID-19 (principal); Z20.822 Contact with and (suspected) exposure to COVID-19; R09.89 Other specified symptoms and signs involving the circulatory and respiratory systems | CPT/HCPCS: 0241U ==

== ENCOUNTER 2023-02-25 14:42 | Outpatient (AMB) | payer MEDICARE, MEDICAID, SELFPAY ==
[2023-02-25 14:49] VITALS: BP 130/70; PULSE 72; TEMP 37.1; O2SAT 95; BMI 33.8
--- NOTE | 2023-02-25 14:49 | MHC.PC.OV ---
Vital Signs 02/25/23 14:49 Height 5 ft 6 in Weight 209 lb 4 oz BMI 33.8 BP 130/70 Blood Pressure Location Lt brachial Position Sitting Pulse 72 Temp 98.8 F Temp Source Oral Pulse Oximetry (%) 95 Oxygen Delivery Method Room Air Intake Visit Reasons: f/u cervical radiculopathy and meds Intake Note: Patient is here to follow up on radiculopthy and medication discussion, and he has had cold symptoms since Friday morning. Allergies No Known Allergies Allergy (Verified 02/25/23 14:55) Tobacco use date assessed: 01/14/23 HPI f/u cervical radiculopathy and meds HPI Details 57 y/o male presents to f/u cervical radiculopathy with radiation into bilateral hands. Labs and x-ray were ordered. Had also ordered physical therapy. Labs were drawn 02/12/23. Reviewed labs with pt. Ongoing elevated creatinine at 1.44. Cervical spine x-ray shows ventral plate and screws for C5, C6 and C7 fusion. Mild ventral spondylosis C2-C3 through C4-C5 disc levels. Chest CT revealed multiple pulmonary nodules. Pt reports cold symptoms since Friday morning - about 3 days ago. [facility] Medical History Sleep apnea Arthritis Chronic neck and back pain On beta jamari at home CAD (coronary artery disease) Substance abuse HTN (hypertension) Surgical History H/O spinal fusion Stented coronary artery Hx of endoscopy Hx of colonoscopy Family History Mother COPD (chronic obstructive pulmonary disease) Cancer Father CAD (coronary artery disease) COPD (chronic obstructive pulmonary disease) Social History Household Members: Family Housing: House Are you a primary home care nurse to a significant other at home: No Do you presently have visiting nurse or other home services: No Alcohol intake: former Patient Tobacco Use Status: Former Tobacco user Quit Date: yrs ago Tobacco use type: Cigarette Cigarette Packs Per Day: 1 Cigarettes Per Day: 20 Years Smoked: 20 e-Cigarette/Vaping Use: Never Used Second Hand Smoke Exposure: No Substance Use Type: Marijuana service: No Current occupational status: employed Current occupational exposures/hazards: No Cognitive needs: No Hearing needs: No Vision needs: No Questionnaire Thrive Questionnaire Date Thrive assessed: 06/18/22 MCKENNA-7 AMB Questionnaire MCKENNA-7 Date MCKENNA - 7 assessed: 06/18/22 Source: Developed by Drs. Junior Richards, Vania Vázquez, Fred Boudreaux and colleagues, with an educational zacarias from [email or web address]. Review of Systems Const Denies chills, Denies fatigue, Denies fever(s), Denies headache(s) and Denies weakness ENT Denies dizziness, Denies headache(s), Reports nasal congestion and Reports nasal discharge Card Denies dyspnea Resp Denies cough, Denies dyspnea, Denies wheezing and Denies other (shortness of breath) Musc Denies numbness and Denies tingling Neuro Denies dizziness, Denies headache(s), Denies numbness, Denies tingling and Denies weakness Psych Denies anxiety and Denies depression Endo Denies fatigue Aller/Immun Denies wheezing Physical exam (Primary Care) Vital Signs: Last Vital Signs Temp 98.8 F 02/25/23 14:49 Pulse 72 02/25/23 14:49 BP 130/70 02/25/23 14:49 Pulse Ox 95 02/25/23 14:49 Oxygen Delivery Method Room Air 02/25/23 14:49 BMI result Body Mass Index 33.8 Tobacco/Smoking Status: Tobacco use Status Tobacco use date assessed 01/14/23 02/25/23 14:51 Patient Tobacco Use Status Former Tobacco user 02/25/23 14:51 Tobacco use type Cigarette 02/25/23 14:51 e-Cigarette/Vaping Use Never Used 02/25/23 14:51 Thrive Assessment: Date of Thrive Assessment Date Thrive assessed 06/18/22 02/25/23 14:51 Const General: well developed; No acute distress Nutritional Appearance: well nourished Orientation/consciousness: patient oriented x3 HENMT Head: Yes normocephalic and Yes atraumatic Eyes General: appearance normal, both eyes and all related structures Pupils: Equal, round and reactive pupils present EOM: EOMs intact bilaterally Resp Other: Coarse breath sounds Effort & Inspection: normal respiratory effort Auscultation: clear to auscultation bilaterally Cardio Rate: regular rate Rhythm: regular rhythm Heart sounds: S1 normal heart sound present, S2 normal heart sound present, no gallops, no murmurs and no rubs Neuro General: patient oriented x3 and gait normal Cranial nerves: Yes Equal, round and reactive pupils present Psych Affect: normal affect Assessment and Plan Assessment & Plan (1) Cervical radiculopathy: Code(s): M54.12 - Radiculopathy, cervical region Plan: Ongoing?and?worsening?cervical?radiculopathy?in?a?patient?with?prior?cervical?surgery. Referred?to?neurology. Checking?MRI; if?indicated?will?refer?to?neuro?surgery Can?try?some?gabapentin. Can?use?oral?NSAIDs?sparingly Continue?physical?therapy (2) Shoulder pain: Code(s): M25.519 - Pain in unspecified shoulder Plan: Improving?with?physical?therapy Can?use?oral?NSAIDs?sparingly Hydrate?well (3) Elevated serum creatinine: Code(s): R79.89 - Other specified abnormal findings of blood chemistry Plan: Mild?renal?insufficiency Hydrate?well Use?oral?NSAIDs?sparingly?and?consider?using?topicals?also. (4) Multiple pulmonary nodules: Code(s): R91.8 - Other nonspecific abnormal finding of lung field Plan: Has?follow-up?with?Pulmonary (5) Viral illness: Code(s): B34.9 - Viral infection, unspecified Plan: Nasal?congestion?and?cold-like?symptoms?for?for?the?past?3?days. Family?members?with?positive?COVID?test Checking?COVID/flu/RSV?nasal?swab Advised?he?keep?quarantine. We?discussed?that?if?positive?he?is?still?well?within?the?time?window?for?Paxlovid. Orders: Orders SARS-CoV2/FLU/RSV Today R09.89 - Other specified symptoms and signs involving the circulatory and respiratory systems MR cervical spine wo con Today M54.12 - Radiculopathy, cervical region Referrals Neurology Referral M54.12 - Radiculopathy, cervical region Medications: New gabapentin 200 mg (2 x 100 mg) PO BEDTIME 30 days 60 caps 0RF Coding Level of Care Code Est Pt Level 4 (42586) Diagnoses Cervical radiculopathy M54.12 Shoulder pain M25.519 Elevated serum creatinine R79.89 Multiple pulmonary nodules R91.8 Viral illness B34.9
== END 2023-02-25 15:32 | disposition home or self-care (01) ==
PROVIDERS: PCP Family Medicine; Visit Provider Family Medicine
DX: M54.12 Radiculopathy, cervical region (principal); M25.519 Pain in unspecified shoulder; R79.89 Other specified abnormal findings of blood chemistry; R91.8 Other nonspecific abnormal finding of lung field; B34.9 Viral infection, unspecified
CPT/HCPCS: 99214

== ENCOUNTER 2023-06-11 14:46 | Outpatient (AMB) | payer MEDICARE, MEDICAID, SELFPAY ==
--- NOTE | 2023-06-11 14:55 | MHC.PC.OV ---
Vital Signs 06/11/23 14:56 Height 5 ft 6 in Weight 213 lb BMI 34.4 BP 113/67 Blood Pressure Location Lt brachial Pulse 59 Pulse Source Pulse Oximeter Pulse Oximetry (%) 95 Oxygen Delivery Method Room Air Intake Visit Reasons: Extended exam Intake Note: Patient is here for an extended exam. He states he has a hard time breaking the Metformin. Patient brought in orders from pain doctor for MRI. Allergies No Known Allergies Allergy (Verified 06/11/23 15:04) Medication List - Last Reconciled 06/11/23 by Ivan Ash MD aspirin (St Von Aspirin) 81 mg PO DAILY blood sugar diagnostic (FreeStyle Lite Strips) DX: E11.9, test blood sugar once a day, 90 days blood-glucose meter (FreeStyle Lite Meter kit) DX: E11.9, test blood sugar once a day, duration 999 days budesonide-formoterol 80-4.5 mcg/actuation (Symbicort) 2 puffs inhalation Q12H buspirone 5 mg PO DAILY buspirone 15 mg PO DAILY 30 days cetirizine 10 mg PO DAILY PRN 90 days clonazepam 1.5 mg PO BEDTIME cyclobenzaprine 10 mg PO BEDTIME diclofenac sodium 1% 4 grams topical TID 28 days ezetimibe 10 mg PO DAILY gabapentin 200 mg (2 x 100 mg) PO BEDTIME 30 days glipizide ER 2.5 mg PO QAM 30 days hydrochlorothiazide 25 mg PO DAILY hydrocodone-acetaminophen 10-325 mg 1 tab PO Q6H PRN lancets (FreeStyle Lancets) As directed levalbuterol tartrate 45 mcg/actuation 1 puff inhalation Q4-6H PRN lisinopril 40 mg PO DAILY metformin 250 mg (1/2 x 500 mg) PO DAILY 90 days metoprolol succinate ER 200 mg PO DAILY morphine 15 mg PO BEDTIME PRN pantoprazole 40 mg PO QPM 30 days Tobacco use date assessed: 06/11/23 Dental Screening Dental Screen Date: 06/11/23 Did you have a dental visit in the last 12 months?: Yes Did you have a dental problem in the last 6 months where you did not have access to dental care?: No Was dental information given to patient?: Patient has dentist HPI Extended exam HPI Details 57 y/o male presents for an extended exam with f/u labs and health maintenance. No recent labs to review. Last A1c 01/14/23 5.8%. He is on metformin 250mg b.i.d, glipizide 2.5mg. Blood pressure today is 113/67. He is on lisinopril 40mg, HCTZ 25mg and metoprolol 200mg daily. Pt reports chronic diarrhea. He reports he actively tries to drink as much water as he can. HPI Comments History of Present Illness Details Documentation assistance for Ivan Ash MD, was provided by Yan Gao,? Internet Application Developer on 06/11/2023 3:32 P.M EST. I, Dr. Ash, have read, observed, and verified documentation.? [facility] Medical History Sleep apnea Arthritis Chronic neck and back pain On beta jamari at home CAD (coronary artery disease) Substance abuse HTN (hypertension) Surgical History H/O spinal fusion Stented coronary artery Hx of endoscopy Hx of colonoscopy Family History Mother COPD (chronic obstructive pulmonary disease) Cancer Father CAD (coronary artery disease) COPD (chronic obstructive pulmonary disease) Social History Household Members: Family Housing: House Are you a primary family member caretaker to a significant other at home: No Do you presently have visiting nurse or other home services: No Alcohol intake: former Patient Tobacco Use Status: Former Tobacco user Quit Date: yrs ago Tobacco use type: Cigarette Cigarette Packs Per Day: 1 Cigarettes Per Day: 20 Years Smoked: 20 e-Cigarette/Vaping Use: Never Used Second Hand Smoke Exposure: No Substance Use Type: Marijuana service: No Current occupational status: employed Current occupational exposures/hazards: No Cognitive needs: No Hearing needs: No Vision needs: No Questionnaire PHQ-9 Over the last 2 weeks, how often have you been bothered by any of the following problems? 1. Little interest or pleasure in doing things: not at all 2. Feeling down, depressed, or hopeless: not at all 3. Trouble falling or staying asleep, or sleeping too much: nearly every day (pain related) 4. Feeling tired or having little energy: nearly every day 5. Poor appetite or overeating: nearly every day 6. Feeling bad about yourself - or that you are a failure or have let yourself or your family down: not at all 7. Trouble concentrating on things, such as reading the newspaper or watching television: several days 8. Moving or speaking so slowly that other people could have noticed. Or the opposite - being so fidgety or restless that you have been moving around a lot more than usual: not at all 9. Thoughts that you would be better off or of hurting yourself in some way: not at all Total score: 10 Source: Developed by Drs. Junior Richards, Vania Vázquez, Fred Boudreaux and colleagues, with an educational zacarias from [employer]. Thrive Questionnaire Date Thrive assessed: 06/18/22 I am a: Patient What is your living situation today?: I have a steady place to live Within the past 12 months, did the food you bought not last and you didn't have the money to get more?: Never true Within the past 12 months, did you worry whether your food would run out before you got money to buy more?: Sometimes True Do you have trouble paying for medicines?: No Do you have trouble getting transportation to medical appointments?: No Do you have trouble paying your heating and electricity bill?: No Do you have trouble taking care of your child, family member or friend?: No Do you have trouble with day-to-day activities such as bathing, preparing meals, shopping, managing finances, etc.?: Yes Are you currently unemployed and looking for a job?: No Are you interested in more education?: No THRIVE Score: 1 AUDIT C Alcohol Use Questionnaire (AUDIT-C) 1. How often do you have a drink containing alcohol?: Never 3. How often do you have six or more drinks on one occasion?: Never Total Score: 0 MCKENNA-7 AMB Questionnaire MCKENNA-7 Date MCKENNA - 7 assessed: 06/11/23 Feeling nervous, anxious, or on edge: 3 = Nearly every day Not being able to stop or control worryin = Not at all Worrying too much about different things: 0 = Not at all Trouble relaxin = Not at all Being so restless that it is hard to sit still: 1 = Several days (pain related) Becoming easily annoyed or irritable: 0 = Not at all Feeling afraid as if something awful might happen: 0 = Not at all Total MCKENNA-7 score (0-4 normal; 5-9 mild; 10-14 moderate; 15-21 severe): 4 Source: Developed by Drs. Junior Richards, Vania Vázquez, Fred Boudreaux and colleagues, with an educational zacarias from [employer]. ACT Questionnaire In the past 4 weeks, how much of the time did your asthma keep you from getting as much done at work, school or at home?: None of the time During the past 4 weeks, how often have you had shortness of breath?: Not at all (once) During the past 4 weeks, how often did your asthma symptoms wake you up at night or earlier than usual in the morning?: Not at all During the past 4 weeks, how often have you had to use your rescue inhaler or nebulizer medication?: Not at all How would you rate your asthma control during the past 4 weeks?: Completely controlled Score: 25 Review of Systems Const Denies chills, Denies fatigue, Denies fever(s), Denies headache(s) and Denies weakness Eyes Denies change in vision ENT Denies dizziness, Denies headache(s), Denies hearing loss, Denies nasal congestion, Denies sinus pain, Denies sinus pressure and Denies sore throat Card Denies chest pain, Denies lightheadedness, Denies dyspnea and Denies other (palpitations) Resp Denies cough, Denies dyspnea and Denies wheezing GI Denies abdominal pain, Denies melena, Denies hematochezia, Denies change in bowel habits, Denies dyspepsia, Reports diarrhea and Denies nausea Denies hematuria and Denies dysuria Musc Denies abnormal gait, Denies myalgias, Denies arthralgias, Denies numbness and Denies tingling Skin/Breast Denies rash, Denies unusual bruising and Denies wounds Neuro Denies abnormal gait, Denies dizziness, Denies headache(s), Denies memory loss, Denies numbness, Denies Sensory deficit (Neuro), Denies tingling and Denies weakness Psych Denies anxiety, Denies depression and Denies memory loss Endo Denies cold intolerance, Denies fatigue, Denies heat intolerance, Denies polydipsia and Denies polyuria Librado/Lymph Denies easy bleeding and Denies easy bruising Aller/Immun Denies wheezing Physical exam (Primary Care) Vital Signs: Last Vital Signs Pulse 59 06/11/23 14:56 BP 113/67 06/11/23 14:56 Pulse Ox 95 06/11/23 14:56 Oxygen Delivery Method Room Air 06/11/23 14:56 BMI result Body Mass Index 34.4 Tobacco/Smoking Status: Tobacco use Status Tobacco use date assessed 06/11/23 06/11/23 15:15 Patient Tobacco Use Status Former Tobacco user 06/11/23 15:02 Tobacco use type Cigarette 06/11/23 15:02 e-Cigarette/Vaping Use Never Used 06/11/23 15:02 PHQ-9: PHQ-9 Score PHQ-9: Total score 10 06/11/23 15:15 Thrive Assessment: Date of Thrive Assessment Date Thrive assessed 06/18/22 06/11/23 15:02 Const General: no acute distress, well developed, alert and awake Nutritional Appearance: well nourished Orientation/consciousness: patient oriented x3 HENMT Head: Yes normocephalic and Yes atraumatic Ears: hearing grossly normal bilaterally and TM's normal bilaterally General nose exam: Normal external nose present and Normal nares present Mouth: Normal oral and palatal mucosa present and moist mucous membranes Teeth and gingiva: dentition normal Throat: Yes posterior oropharynx normal Eyes General: appearance normal, both eyes and all related structures Pupils: Equal, round and reactive pupils present and Pupil accommodation reflex normal EOM: EOMs intact bilaterally Neck Neck: Yes normal visual inspection, Yes no lymphadenopathy and Yes trachea midline Thyroid: Thyroid normal Carotids: no bruits Lymphatic: no lymphadenopathy noted Chest Chest palpation & inspection: normal inspection of the chest Resp Effort & Inspection: normal respiratory effort Auscultation: clear to auscultation bilaterally Cardio Rate: regular rate Rhythm: regular rhythm Heart sounds: S1 normal heart sound present, S2 normal heart sound present, no gallops, no murmurs and no rubs Bruits: no abdominal aortic bruits and no carotid bruits GI Palpation (GI): No Abdominal aortic bruit present, Soft to palpation, nontender, No hepatosplenomegaly present and No Rebound tenderness present Auscultation: normal bowel sounds General: Yes no CVA tenderness Back/Spine/Pelvis Back: no CVA tenderness Cervical Spine: cervical ROM normal and No Cervical spine tenderness Thoracic/Lumbar Spine: thoraco-lumbar ROM normal, No pain with thoraco-lumbar ROM, No thoracic spinal tenderness and No lumbar spinal tenderness Skin Lesions: no lesions Rashes: no rashes Trauma: no lacerations or abrasions Wounds: no wounds Nails: normal Neuro General: patient oriented x3 Cranial nerves: Yes Equal, round and reactive pupils present Cognition (Neuro): normal cognition Gait exam (Neuro): Normal gait present Motor exam (neuro): 5/5 motor strength present throughout Sensory Exam: No Sensory deficit (Neuro) Deep tendon reflexes (DTR's): Right patellar reflex intensity grade: 2+ and Left patellar reflex intensity grade: 2+ Extrem General: Yes normal to inspection and No edema Psych Appearance: grossly normal Affect: normal affect Attitude: cooperative Thought process: Normal thought process present Results AMB Hemoglobin A1c AMB Hemoglobin A1c 5.9 % Last Edit by Meghan Aguayo CMA on 06/11/23 15:32 Assessment and Plan Assessment & Plan (1) HTN (hypertension): Code(s): I10 - Essential (primary) hypertension Plan: Blood?pressure?is?well?controlled.??Goal?is?less?than?130/80 Continue?current?medication (2) Hyperlipidemia: Code(s): E78.5 - Hyperlipidemia, unspecified Plan: He?is?only?on?Zetia Continue?Zetia?and?recheck?lipids Follow-up?with?Cardiology?as?recommended (3) CAD (coronary artery disease): Code(s): I25.10 - Atherosclerotic heart disease of [place] coronary artery without angina pectoris Plan: Stable Follow-up?with?Cardiology?as?recommended (4) Diarrhea: Code(s): R19.7 - Diarrhea, unspecified Plan: He?can?try?a?soluble?fiber?tablet Hydrate?well (5) Diabetes: Code(s): E11.9 - Type 2 diabetes mellitus without complications Plan: A1c?5.9%?which?is?good?control.??Goal?is?less?than?7.0% Continue?metformin?250?mg?daily.??He?is?having?some?difficulty?with?breaking?these but?he?can?take?the?remainder?of?each?broken?tablet?the?following?day?and?this?should?even?out?well. Continue?diabetic?diet (6) Shoulder pain: Code(s): M25.519 - Pain in unspecified shoulder Plan: Ongoing?right?cervical?radiculopathy?and?right?shoulder?pain. He?has?a?cervical?MRI?and?shoulder?MRI?ordered?by?his?pain?management?specialist; had?ordered?this?but?patient?needed?an?open?MRI.??This?is?scheduled Follow-up?with?your?pain?management?specialist?as?recommended (7) Screening for prostate cancer: Code(s): Z12.5 - Encounter for screening for malignant neoplasm of prostate Plan: PSA?is?ordered (8) Screening for colon cancer: Code(s): Z12.11 - Encounter for screening for malignant neoplasm of colon Plan: Last?colonoscopy?was?March?2021?and?he?can?follow-up?in?3?years;?2024 (9) Adult general medical exam: Code(s): Z00.00 - Encounter for general adult medical examination without abnormal findings Plan: 57-year-old?male?presents?for?extended?exam Orders: Orders Complete Blood Count Auto Diff Today Z00.00 - Encounter for general adult medical examination without abnormal findings UA and rflx microscopic Today Z00.00 - Encounter for general adult medical examination without abnormal findings Comprehensive [place]. Panel Fast Today Z00.00 - Encounter for general adult medical examination without abnormal findings Lipid Panel Today Z00.00 - Encounter for general adult medical examination without abnormal findings Microalbumin, Random (w Creat) Today I10 - Essential (primary) hypertension Prostate Specific Antigen Scr Today Z12.5 - Encounter for screening for malignant neoplasm of prostate TSH reflex Free T4 Today Z00.00 - Encounter for general adult medical examination without abnormal findings AMB Hemoglobin A1c Today Z13.9 - Encounter for screening, unspecified Referrals Infectious Disease Referral Z20.6 - Contact with and (suspected) exposure to human immunodeficiency virus [HIV], Z29.81 - Encounter for HIV pre-exposure prophylaxis Medications: New calcium polycarbophil (FiberCon) 625 mg PO DAILY 30 tabs 2RF 30 days Coding Level of Care Code Est Pt Level 4 (95917) Diagnoses HTN (hypertension) I10 Hyperlipidemia E78.5 CAD (coronary artery disease) I25.10 Diarrhea R19.7 Diabetes E11.9 Shoulder pain M25.519 Screening for prostate cancer Z12.5 Screening for colon cancer Z12.11 Adult general medical exam Z00.00
[2023-06-11 14:56] VITALS: BP 113/67; PULSE 59; O2SAT 95; BMI 34.4
== END 2023-06-11 15:43 | disposition home or self-care (01) ==
PROVIDERS: PCP Family Medicine; Visit Provider Family Medicine
DX: Z00.00 Encounter for general adult medical examination without abnormal findings (principal); I10 Essential (primary) hypertension; E11.69 Type 2 diabetes mellitus with other specified complication; E78.5 Hyperlipidemia, unspecified; I25.10 Atherosclerotic heart disease of native coronary artery without angina pectoris; R19.7 Diarrhea, unspecified; M25.511 Pain in right shoulder; Z12.5 Encounter for screening for malignant neoplasm of prostate; Z12.11 Encounter for screening for malignant neoplasm of colon
CPT/HCPCS: 83036; 99396

== ENCOUNTER 2023-07-24 14:53 | Outpatient (AMB) | payer MEDICARE, MEDICAID, SELFPAY ==
--- NOTE | 2023-07-24 14:46 | A.OFFPC_ITS ---
Intake Visit Reasons: f/u CPE-labs Intake Note: Patient is following up on labs, MRI results today. Allergies No Known Allergies Allergy (Verified 07/24/23 14:46) Tobacco use date assessed: 07/24/23 HPI f/u CPE-labs HPI Details 58 y/o male presents to f/u CPE-labs via telemedicine. MRI of cervical spine. Per note, there is straightening of cervical spine with loss of normal lordosis. Mild retrolisthesis seen at C4 over C5. Minimal anterolisthesis of C7 over T1. No vertebral body fx seen. S/P ACDF of C5-C7 vertebral bodies. Labs were drawn 07/14/[address] [facility]. Elevated glucose of 140. Creatinine level 1.5. TC 194. Triglycerides 193. HDL low at 36. PFSH Medical History Sleep apnea Arthritis Chronic neck and back pain On beta jamari at home CAD (coronary artery disease) Substance abuse HTN (hypertension) Surgical History H/O spinal fusion Stented coronary artery Hx of endoscopy Hx of colonoscopy Family History Mother COPD (chronic obstructive pulmonary disease) Cancer Father CAD (coronary artery disease) COPD (chronic obstructive pulmonary disease) Social History Household Members: Family Housing: House Are you a primary healthcare advisory services manager to a significant other at home: No Do you presently have visiting nurse or other home services: No Alcohol intake: former Patient Tobacco Use Status: Former Tobacco user Quit Date: yrs ago Tobacco use type: Cigarette Cigarette Packs Per Day: 1 Cigarettes Per Day: 20 Years Smoked: 20 Packs Per Year: 20 Packs per year/per ci.00 e-Cigarette/Vaping Use: Never Used Second Hand Smoke Exposure: No Substance Use Type: Marijuana service: No Current occupational status: employed Current occupational exposures/hazards: No Cognitive needs: No Hearing needs: No Vision needs: No Questionnaire Thrive Questionnaire Date Thrive assessed: 06/18/22 MCKENNA-7 AMB Questionnaire MCKENNA-7 Date MCKENNA - 7 assessed: 06/11/23 Source: Developed by Drs. Junior Richards, Vania Vázquez, Fred Boudreaux and colleagues, with an educational zacarias from [employer]. Review of Systems Const Denies chills, Denies fatigue, Denies fever(s), Denies headache(s) and Denies weakness ENT Denies dizziness and Denies headache(s) Card Denies dyspnea Resp Denies cough, Denies dyspnea, Denies wheezing and Denies other (shortness of breath) Musc Denies numbness and Denies tingling Neuro Denies dizziness, Denies headache(s), Denies numbness, Denies tingling and Denies weakness Psych Denies anxiety and Denies depression Endo Denies fatigue Aller/Immun Denies wheezing Physical exam (Primary Care) Tobacco/Smoking Status: Tobacco use Status Tobacco use date assessed 07/24/23 07/24/23 14:49 Patient Tobacco Use Status Former Tobacco user 07/24/23 14:46 Tobacco use type Cigarette 07/24/23 14:46 e-Cigarette/Vaping Use Never Used 07/24/23 14:46 Thrive Assessment: Date of Thrive Assessment Date Thrive assessed 06/18/22 07/24/23 14:46 Telehealth Telehealth Location of provider rendering services: practice address Location of patient: address on file Patient Identification confirmed using: Name, : Yes Telehealth method: voice only Patient verbally consented to treatment: Yes Patient verbally consented to billing insurance company: Yes Patient informed of any privacy concerns related to visit: Yes Minutes spent on Phone/Video with Pt.: 10 Assessment and Plan Assessment & Plan (1) Cervical radiculopathy: Code(s): M54.12 - Radiculopathy, cervical region Plan: Cervical?radiculopathy?with?right?arm?weakness MRI?shows?multiple?levels?of?canal?and? foraminal?stenosis.??No?nerve?compression?at?this?time. Cause?of?his?symptoms?may?be?more?peripheral. Referred?to?neurology (2) Low HDL (under 40): Code(s): E78.6 - Lipoprotein deficiency Plan: Encouraged?walking (3) Elevated serum creatinine: Code(s): R79.89 - Other specified abnormal findings of blood chemistry Plan: Serum?creatinine?is?elevated;?renal?insufficiency. Encouraged?good?hydration?and?will?recheck?at?next?lab?draw (4) Right arm weakness: Code(s): R29.898 - Other symptoms and signs involving the musculoskeletal system Plan: As?above Orders: Orders Prostate Specific Antigen Scr Today Z12.5 - Encounter for screening for malignant neoplasm of prostate PT Evaluation and Treatment Today M54.12 - Radiculopathy, cervical region, R29.898 - Other symptoms and signs involving the musculoskeletal system Comprehensive Met. Panel Today R79.89 - Other specified abnormal findings of blood chemistry Referrals Neurology Referral M54.12 - Radiculopathy, cervical region, R29.898 - Other symptoms and signs involving the musculoskeletal system Coding Level of Care Code Tele Est Pt Level 2 (95716) Diagnoses Cervical radiculopathy M54.12 Low HDL (under 40) E78.6 Elevated serum creatinine R79.89 Right arm weakness R29.898
== END 2023-07-24 16:00 ==
LOC: HO.HMGFM 14:53
PROVIDERS: PCP Family Medicine; Visit Provider Family Medicine
DX: M54.12 Radiculopathy, cervical region (principal); E78.6 Lipoprotein deficiency; R79.89 Other specified abnormal findings of blood chemistry; R29.898 Other symptoms and signs involving the musculoskeletal system
CPT/HCPCS: 99441

== ENCOUNTER 2023-08-19 14:39 | Outpatient (AMB) | payer MEDICARE, MEDICAID, SELFPAY ==
[2023-08-19 14:46] VITALS: BP 112/68; PULSE 75; O2SAT 97; BMI 34.4
--- NOTE | 2023-08-19 14:46 | MHC.OFFVIS ---
Intake Vital Signs 08/19/23 14:46 Height 5 ft 6 in Weight 213 lb BMI 34.4 BP 112/68 Blood Pressure Location Lt brachial Position Sitting Pulse 75 Pulse Source Pulse Oximeter Pulse Oximetry (%) 97 Oxygen Delivery Method Room Air Intake Visit Reasons: 6 month f/u Customs Examiner Required: No Breeding Technician: Breeding Technician offered & declined Accompanied by: Self / Same As Patient Allergies No Known Allergies Allergy (Verified 08/19/23 14:49) Medication List - Last Reconciled 08/19/23 by Kourtney Carter LPN aspirin (St Von Aspirin) 81 mg PO DAILY blood sugar diagnostic (FreeStyle Lite Strips) DX: E11.9, test blood sugar once a day, 90 days blood-glucose meter (FreeStyle Lite Meter kit) DX: E11.9, test blood sugar once a day, duration 999 days budesonide-formoterol 80-4.5 mcg/actuation (Symbicort) 2 puffs inhalation Q12H buspirone 5 mg PO DAILY buspirone 15 mg PO DAILY 30 days calcium polycarbophil (FiberCon) 625 mg PO DAILY 30 days cetirizine 10 mg PO DAILY PRN 90 days clonazepam 1.5 mg PO BEDTIME cyclobenzaprine 10 mg PO BEDTIME diclofenac sodium 1% 4 grams topical TID 28 days ezetimibe 10 mg PO DAILY gabapentin 200 mg (2 x 100 mg) PO BEDTIME 30 days glipizide ER 2.5 mg PO QAM 30 days hydrochlorothiazide 25 mg PO DAILY lancets (FreeStyle Lancets) As directed levalbuterol tartrate 45 mcg/actuation 1 puff inhalation Q4-6H PRN lisinopril 40 mg PO DAILY metformin 250 mg (1/2 x 500 mg) PO DAILY 90 days metoprolol succinate ER 200 mg PO DAILY morphine 15 mg PO BEDTIME PRN pantoprazole 40 mg PO QPM 30 days HPI 6 month f/u HPI Details David is a pleasant 58 year old male, former tobacco smoker with an approximate 10 pack year history, quit 20 years ago, and current everyday heavy marijuana smokery, asthma and environmental allergies. At baseline is he well controlled on symbicort. Unfortunately, he discontinued and has noticed an increase in dyspnea with exertion. He denies any chest tightness, cough or wheezing. He is requesting a refill. Of note, he is undergoing cardiac evaluation for ongoing dyspnea and chest discomfort with exertion. He is scheduled for an echo and nuclear stress test in the near future with [facility]. He continues to report significant daytime fatigue, despite a negative home sleep study. [facility] Medical History Sleep apnea Arthritis Chronic neck and back pain On beta jamari at home CAD (coronary artery disease) Substance abuse HTN (hypertension) Surgical History H/O spinal fusion Stented coronary artery Hx of endoscopy Hx of colonoscopy Family History Mother COPD (chronic obstructive pulmonary disease) Cancer Father CAD (coronary artery disease) COPD (chronic obstructive pulmonary disease) Social History (Updated 08/19/23 @ 14:52 by Kourtney Carter LPN) Household Members: Family Housing: House Are you a primary primary care pediatrician to a significant other at home: No Do you presently have visiting nurse or other home services: No Alcohol intake: former Patient Tobacco Use Status: Former Tobacco user Quit Date: yrs ago Tobacco use type: Cigarette Cigarette Packs Per Day: 1 Cigarettes Per Day: 20 Years Smoked: 20 Smoked in Last 30 Days: No e-Cigarette/Vaping Use: Never Used Second Hand Smoke Exposure: No Substance Use Type: Marijuana service: No Current occupational status: employed Current occupational exposures/hazards: No Cognitive needs: No Hearing needs: No Vision needs: No Review of Systems Const Denies chills, Denies excessive sweating, Denies fever(s), Denies headache(s) and Denies night sweats Eyes Denies dry eyes, Denies irritation and Denies itchy eyes ENT Reports Normal hearing present, Denies headache(s), Denies nasal congestion, Denies nasal discharge, Denies post nasal drip and Denies sore throat Card Denies chest pain, Denies chest pain at rest, Denies chest pain with activity, Denies claudication, Denies leg edema, Denies orthopnea and Denies paroxysmal nocturnal dyspnea Resp Denies chest congestion, Denies cough, Denies excessive phlegm production, Denies pain on inspiration, Denies pain with cough, Denies stridor and Denies wheezing Musc Denies myalgias Neuro Reports Normal hearing present and Denies headache(s) Endo Denies excessive sweating Librado/Lymph Denies lymphadenopathy Aller/Immun Denies itchy eyes, Denies seasonal rhinorrhea and Denies wheezing Physical Exam Vital Signs: Last Vital Signs Pulse 75 08/19/23 14:46 BP 112/68 08/19/23 14:46 Pulse Ox 97 08/19/23 14:46 Oxygen Delivery Method Room Air 08/19/23 14:46 BMI result Body Mass Index 34.4 Const General: cooperative, healthy appearing, comfortable, no acute distress, well developed and alert Nutritional Appearance: obese Orientation/consciousness: patient oriented x3 Limitations: no limitations HEENT Head: Yes normal to inspection, Yes normocephalic and Yes atraumatic Ears: hearing grossly normal bilaterally and external ears normal Eyes General: appearance normal, both eyes and all related structures Eyelids: Yes eyelids normal Sclerae: sclerae normal EOM: EOMs intact bilaterally Neck Neck: Yes normal visual inspection and Yes no lymphadenopathy Lymphatic: no lymphadenopathy noted Chest Chest palpation & inspection: normal inspection of the chest Resp Effort & Inspection: normal respiratory effort, able to speak in complete sentences, no audible wheezes, no cough, no stridor, not tachypneic, no tripod positioning and no use of accessory muscles Auscultation: clear to auscultation bilaterally Cardio Jugular venous distension: no JVD Rate: regular rate Rhythm: regular rhythm Skin Other: warm, dry General skin exam: no rashes or lesions noted Neuro General: patient oriented x3 Cranial nerves: Yes Normal hearing present Cognition (Neuro): normal cognition Gait exam (Neuro): Normal gait present Extrem General: Yes normal to inspection, Yes capillary refill normal, Yes no clubbing, cyanosis or edema and Yes no pedal edema Psych Appearance: grossly normal and well kempt Speech and movement: Normal speech and movement present and Clear speech present Affect: normal affect Attitude: cooperative Thought process: Normal thought process present Thought content: Normal thought content present Insight: Good insight present (Psych) Judgement: Good judgement present (Psych) Assessment & Plan Assessment & Plan (1) Asthma: Code(s): J45.909 - Unspecified asthma, uncomplicated (2) Dyspnea on exertion: Code(s): R06.09 - Other forms of dyspnea (3) Multiple pulmonary nodules: Code(s): R91.8 - Other nonspecific abnormal finding of lung field (4) Environmental allergies: Code(s): Z91.09 - Other allergy status, other than to drugs and biological substances (5) Daytime somnolence: Code(s): R40.0 - Somnolence Plan Encouraged patient to restart symbicort, will send refill. Despite multiple allergens and significantly elevated IgE, patient reports minimal allergic symptoms, reporting good control while on symbicort and antihistamine PRN. Will send patient for in lab sleep study as patient with significant daytime somnolence despite negative home sleep study. Will follow up to review results or sooner if needed. All questions were answered and patient is in agreement of plan. Orders: Orders RT PSG in-lab sleep study Today R06.83 - Snoring, R40.0 - Somnolence Medications: Refilled budesonide-formoterol 80-4.5 mcg/actuation (Symbicort) 2 puffs inhalation Q12H 1 ea 3RF Coding Level of Care Code Est Pt Level 4 (93772) Diagnoses Asthma J45.909 Dyspnea on exertion R06.09 Multiple pulmonary nodules R91.8 Environmental allergies Z91.09 Daytime somnolence R40.0
== END 2023-08-19 15:13 | disposition home or self-care (01) ==
PROVIDERS: PCP Family Medicine; Visit Provider Nurse Practitioner Family
DX: J45.909 Unspecified asthma, uncomplicated (principal); R06.09 Other forms of dyspnea; R91.8 Other nonspecific abnormal finding of lung field; Z91.09 Other allergy status, other than to drugs and biological substances; R40.0 Somnolence
CPT/HCPCS: 99214

== ENCOUNTER → 2023-08-19 14:39 | Outpatient (BNVA) | payer MEDICARE, MEDICAID, SELFPAY | PROVIDERS: PCP Family Medicine; Visit Provider Nurse Practitioner Family | DX: J45.909 Unspecified asthma, uncomplicated (principal); R06.09 Other forms of dyspnea; R91.8 Other nonspecific abnormal finding of lung field; R40.0 Somnolence; Z91.09 Other allergy status, other than to drugs and biological substances | CPT/HCPCS: 99212 ==

== ENCOUNTER → 2023-08-29 10:39 | Outpatient (AMB) | payer MEDICARE, MEDICAID, SELFPAY ==
[2023-08-29 11:30] VITALS: BP 113/60; PULSE 71; O2SAT 96; BMI 34.7
--- NOTE | 2023-08-29 11:30 | MHC.PC.OV ---
Vital Signs 08/29/23 11:30 Height 5 ft 6 in Weight 215 lb BMI 34.7 BP 113/60 Blood Pressure Location Lt brachial Position Sitting Pulse 71 Pulse Source Pulse Oximeter Pulse Oximetry (%) 96 Oxygen Delivery Method Room Air Intake Visit Reasons: nerve damage in hands Intake Note: Patient is here with concern of nerve damage in his hands, with numness, tingling, pain, driving with arm up, on phone, computer. Patient was prescribed something like Biktarvy from infectious disease, but it made him sick. Allergies No Known Allergies Allergy (Verified 08/29/23 11:32) Tobacco use date assessed: 08/29/23 Dental Screening Dental Screen Date: 08/29/23 HPI nerve damage in hands HPI Details 58 y/o male presents today with complaints of nerve pain in his hands. He reports numbness, tingling and pain which comes up his arms. Pt notes whenever he is at work typing, his fingers get numb along with pain. Pt notes gabapentin seems to help with the numbness. He reports he has started physical therapy for his cervical radiculopathy. [facility] Medical History Sleep apnea Arthritis Chronic neck and back pain On beta jamari at home CAD (coronary artery disease) Substance abuse HTN (hypertension) Surgical History H/O spinal fusion Stented coronary artery Hx of endoscopy Hx of colonoscopy Family History Mother COPD (chronic obstructive pulmonary disease) Cancer Father CAD (coronary artery disease) COPD (chronic obstructive pulmonary disease) Social History Household Members: Family Housing: House Are you a primary wild animal caretaker to a significant other at home: No Do you presently have visiting nurse or other home services: No Alcohol intake: former Patient Tobacco Use Status: Former Tobacco user Quit Date: yrs ago Tobacco use type: Cigarette Cigarette Packs Per Day: 1 Cigarettes Per Day: 20 Years Smoked: 20 e-Cigarette/Vaping Use: Never Used Second Hand Smoke Exposure: No Substance Use Type: Marijuana service: No Current occupational status: employed Current occupational exposures/hazards: No Cognitive needs: No Hearing needs: No Vision needs: No Questionnaire Thrive Questionnaire Date Thrive assessed: 06/18/22 MCKENNA-7 AMB Questionnaire MCKENNA-7 Date MCKENNA - 7 assessed: 06/11/23 Source: Developed by Drs. Junior Richards, Vania Vázquez, Fred Boudreaux and colleagues, with an educational zacarias from [employer]. Review of Systems Const Denies chills, Denies fatigue, Denies fever(s), Denies headache(s) and Denies weakness ENT Denies dizziness and Denies headache(s) Card Denies dyspnea Resp Denies cough, Denies dyspnea, Denies wheezing and Denies other (shortness of breath) Musc Denies numbness and Denies tingling Neuro Denies dizziness, Denies headache(s), Denies numbness, Denies tingling and Denies weakness Psych Denies anxiety and Denies depression Endo Denies fatigue Aller/Immun Denies wheezing Physical exam (Primary Care) Vital Signs: Last Vital Signs Pulse 71 08/29/23 11:30 BP 113/60 08/29/23 11:30 Pulse Ox 96 08/29/23 11:30 Oxygen Delivery Method Room Air 08/29/23 11:30 BMI result Body Mass Index 34.7 Tobacco/Smoking Status: Tobacco use Status Tobacco use date assessed 08/29/23 08/29/23 11:34 Patient Tobacco Use Status Former Tobacco user 08/29/23 11:34 Tobacco use type Cigarette 08/29/23 11:34 e-Cigarette/Vaping Use Never Used 08/29/23 11:34 Thrive Assessment: Date of Thrive Assessment Date Thrive assessed 06/18/22 08/29/23 11:34 Const General: well developed; No acute distress Nutritional Appearance: well nourished Orientation/consciousness: patient oriented x3 HENMT Head: Yes normocephalic and Yes atraumatic Eyes General: appearance normal, both eyes and all related structures Pupils: Equal, round and reactive pupils present EOM: EOMs intact bilaterally Resp Effort & Inspection: normal respiratory effort Auscultation: clear to auscultation bilaterally Cardio Rate: regular rate Rhythm: regular rhythm Heart sounds: S1 normal heart sound present, S2 normal heart sound present, no gallops, no murmurs and no rubs Neuro General: patient oriented x3 and gait normal Cranial nerves: Yes Equal, round and reactive pupils present Psych Affect: normal affect Assessment and Plan Assessment & Plan (1) Cervical radiculopathy: Code(s): M54.12 - Radiculopathy, cervical region Plan: Cervicalgia?with?radiation?into?shoulders?and?arms.??Paresthesias?bilateral?arms?and?some?weakness?at?upper?arms. History?of?cervical?spinal?fusion Referred?to?Ortho?for?cervical?radiculopathy?as?well?as?bilateral?shoulder?pain (2) Paresthesia of arm: Code(s): R20.2 - Paresthesia of skin Plan: Paresthesia?of?arms?and?hands?bilaterally?with?cervical?radiculopathy And?some?concerns?for?weakness?and?impingement Had?referred?patient?to?Neurology?without?much?input?from?them Referring?him?to?Ortho?as?above. If?significantly?worsening,?will?refer?to?Neurosurgery Orders: Referrals Orthopedics Referral M25.519 - Pain in unspecified shoulder, M54.12 - Radiculopathy, cervical region, R20.2 - Paresthesia of skin Coding Level of Care Code Est Pt Level 3 (94156) Diagnoses Cervical radiculopathy M54.12 Paresthesia of arm R20.2
== END ==
PROVIDERS: PCP Family Medicine; Visit Provider Family Medicine
DX: M54.12 Radiculopathy, cervical region (principal); R20.2 Paresthesia of skin
CPT/HCPCS: 99213

== ENCOUNTER → 2023-09-03 20:30 | Outpatient (REF) | payer MEDICARE, MEDICAID, SELFPAY | LOC: HO.SL 20:30 | PROVIDERS: PCP Family Medicine; Visit Provider Nurse Practitioner Family | DX: G47.33 Obstructive sleep apnea (adult) (pediatric) (principal); R06.83 Snoring; R40.0 Somnolence | CPT/HCPCS: 95810 ==

== ENCOUNTER → 2023-09-03 22:03 | Outpatient (BNV) | payer MEDICARE, MEDICAID, SELFPAY | PROVIDERS: PCP Family Medicine; Visit Provider Internal Medicine | DX: G47.33 Obstructive sleep apnea (adult) (pediatric) (principal) | CPT/HCPCS: 95810 ==

== ENCOUNTER 2023-09-19 14:00 | Outpatient (RCR) | payer MEDICARE, MEDICAID, SELFPAY ==
--- NOTE | 2023-08-29 08:38 | MHC.PT.EP ---
[facility] [place] Office [place] Office [place] Office [address] Keshia Cintron [address] [phone] F: [phone] F: [phone] F: [phone] F: [phone] Physical Therapy Plan of Care Date of Evaluation: 08/27/23 Date of Surgery: 2016 Diagnosis: CERVICAL RADICULOPATHY Assessment: Pt IS 58 YO M REFERRED TO PT FROM DR FUNEZ WITH CERVICAL RADICULOPATHY. Pt WAS SEEN IN PT WITH [facility] LAST YEAR WITH IMPROVEMENT NOTED AT END OF PT. Pt WITH HX OF CERVICAL FUSION C5-7. PER REFERRING PHYSICIAN NOTE RE MRI MRI of cervical spine. Per note, there is straightening of cervical spine with loss of normal lordosis. Mild retrolisthesis seen at C4 over C5. Minimal anterolisthesis of C7 over T1. No vertebral body fx seen. S/P ACDF of C5-C7 vertebral bodies. PRESENTS WITH SIGNIF WEAKNESS R UE WITH SENSATION CHANGES NOTED. Pt WITH MM WASTING NOTED R INFRASPINATUS, SLIGHT SULCUS R SHLDER JT (INSTABILITY NOTED WITH PROM). Pt ALSO REPORTS SOME FALLS WITH POSSIBLE RC INVOLVEMENT. IT WAS RECOMMENDED THAT Pt SEE NEUROLOGIST FOR CONSULT WHEN SEEN IN PT IN PAST. THIS HAS NOT HAPPENED YET..CONTINUE TO RECOMMEND. WILL SEE IN PT TO TRY TO HELP WITH R SHLDER ROM AND UPPER BODY STRENGTHENING. Pt WOULD BENEFIT FROM SHLDER MRI ALSO TO ASSESS RC. Pt REPORTS HAD MRI AT [facility]. WILL TRY TO GET REPORT VS Pt RETRIEVAL Frequency and Duration: The patient will be seen 2X/WK X 4 WKS Short Term Goals: 1. INCREASED POSTURE AWARENESS AND AWARENESS SHLDER/NECK CARE 2. CENTRALIZE SXS (LESS UE PARESTHESIA) [employer] Clerk Goals: 1. INCREASED R UE STRENGTH 1-2 GRADES T/O 2. DECREASED NECK AND SHLDER PAIN AT LEAST 50% WITH ADLS 3. I HEP WITH DC EX PLAN Treatment Plan: Modalities to reduce pain, spasms and effusion. Manual therapy to restore motion and function. Therapeutic exercise to improve strength and flexibility. Neuromuscular re-education for posture and balance. Therapeutic activities to return to functional activities of daily living. Electronically signed by: DARINEL INFANTE PT Please sign and return to therapist. Thank you for your referral.
--- NOTE | 2023-09-19 15:15 | MHC.PT.OD ---
[facility] [place] [facility] [place] [facility] [place] Office [address] [place] [address] Dr Keshia Cintron [address] [phone] F: [phone] F: [phone] F: [phone] F: [phone] Physical Therapy Daily Note Diagnosis: CERVICAL RADICULOPATHY Date of Surgery: 2016 Date of Evaluation: 08/27/23 Date of Treatment: 09/19/23 Treatments to Date: 4 Cancellations to Date: No Shows to Date: Authorized Visits: Insurance End Date: Precautions/ Contraindications:CERVICAL FUSION Subjective: Reports having a hard time lifting his right arm. Has not seen neuro, orthopedics. Reports having had an injection from psychiastrist Junior Neal in [place] a few months ago. Admits to history of falls. Pain Score and Location: 0 R SHLDER AND NECK Objective Flowsheet: Tests & Measures HX ACDF C5-C7 Dr. Juarez. Does not currently see any neurosurgeons or neurologists. Reports will be having stress test and ECHO (cardiology has not been booked yet Dr. Veloz- [facility] [address]), Has not had neuro consult, had not seen ortho. Pt reports having R shoulder injection a few months ago by Dr. Rivera of [place], [place]. Reports having numbness in bilateral UE. Reports seeing Dr cirilo in first three digits bilaterally. Saw Dr. Juarez for his past neck and back surgeries. Has not had any EMG which he can recall. [ End ] Reports he cannot lift his R UE, having pain reaching his keys into his ignition. Exercises UBE LEVEL 3-6 FOR A/P X 10 MIN WARM UP WITH EMPHASIS ON POSTURE Cervical AROM: Flexion 30 degrees, extension 20 degrees, L rotation cervical spine 45 degrees, R rotation 60 degrees. Pt is R handed AROM R shoulder flexion 55 degrees, L flexion 155 degrees, R shoulder abduction 55 degrees 155 degrees on the L, ER on the right back of head, ER on the left C6, IR to L3 with no issue. MM atrophy noted on the right infraspinatus area. Poor strength in ABD/ER/R shoulder flexion. MM wasting infraspinatus R UE. DTRs absent for bicep on the R, tricep 1+, absent brachio-radialis. Reviewed history of current condition, questions. Reviewed old notes 02/10/23: this therapist made similar recommendations for neuro/customs import specialist/? EMG needed to screen for weakness. KT FOR SHAHNAZ RAMIREZ WITH ED RE HOME USE ED RE REMOVAL THIS PT SPOKE WITH DR FUNEZ RE NEURO CONSULT. HE REPORTS HE HAD REFERRED TO DR GUERRERO BUT Pt WAS NEVER SEEN..WILL RE-VIST. ? NEURO VS RC TEAR VS BOTH. HE SAYS OK TO PUT Pt ON HOLD FROM PT FOR NOW, WILL SCHEDULE APPT FOR Pt TO SEE HIM NEXT WEEK Modalities Assessment: 09/19/23: Pt exhibits concern for nerve injury significant weakness in mm grouping C5/C6 level. Weakness in shoulder abduction, ER, and R shoulder. Pt expressing B UE parathesias in C5/C6 dermatomoe. Poor strength and AROM of R shoulder. Muscle wasting is observed in posterior infraspinatus region. Pt reports history of falls, history of substance abuse is documented, poor timelines reported by patient. Pt was seen in PT in 02/08 and was referred back to PCP for further screening. Pt states he has not had any neuro, ortho, or other appts since coming to PT last fall. Pt also awaiting on a ECHO and stress testing per notes in [facility] network. Absent DTRs bicep and bracio-radialis noted on R UE. Pt's primary PT MMoriarity, had communication with Dr. Funez yesterday regarding need for neuro consult. Patient was seen last year for similar sx at that time it was recommended he see customs import specialist/ and or neuro with ? need for EMG due to weakness noted. Patient states he has not seen a neurosurgeon/ortho/specialist for this same weakness. since seeing his past surgeon Dr. Juarez who has since retired (hx ACDF C5-C7). He has not had any type of EMG for his C/S or UE. Of note this therapist saw the same patient on 02/10/23 and it was documented that patient be seen by customs import specialist and/or neurology, question of need for EMG/testing due to weakness presented at that time. 09/17/23: SIGNIF C/O NUMBNESS TODAY (IN BOTH UES'). Pt HAS GOOD DOE TO TAD WORK, WASTING NOTED R INFRASPINATUS AREA, ?NEURO VS RC INVOLVEMENT VS BOTH, R SHLDER INSTABILITY NOTED WITH SOME ROM WORK (Pt ED TO MODIFY AND AVOID MOTIONS THAT STRESS JT AND CAUSE POP/CLICK Pt IS 58 YO M REFERRED TO PT FROM DR FUNEZ WITH CERVICAL RADICULOPATHY. Pt WAS SEEN IN PT WITH SIMILAR SXS LAST YEAR WITH IMPROVEMENT NOTED AT END OF PT. Pt WITH HX OF CERVICAL FUSION C5-7. PER REFERRING PHYSICIAN NOTE RE MRI MRI of cervical spine. Per note, there is straightening of cervical spine with loss of normal lordosis. Mild retrolisthesis seen at C4 over C5. Minimal anterolisthesis of C7 over T1. No vertebral body fx seen. S/P ACDF of C5-C7 vertebral bodies. PRESENTS WITH SIGNIF WEAKNESS R UE WITH SENSATION CHANGES NOTED. Pt WITH MM WASTING NOTED R INFRASPINATUS, SLIGHT SULCUS R SHLDER JT (INSTABILITY NOTED WITH PROM). Pt ALSO REPORTS SOME FALLS WITH POSSIBLE RC INVOLVEMENT. IT WAS RECOMMENDED THAT Pt SEE NEUROLOGIST FOR CONSULT WHEN SEEN IN PT IN PAST. THIS HAS NOT HAPPENED YET..CONTINUE TO RECOMMEND. WILL SEE IN PT TO TRY TO HELP WITH R SHLDER ROM AND UPPER BODY STRENGTHENING. Pt WOULD BENEFIT FROM SHLDER MRI ALSO TO ASSESS RC. Pt REPORTS HAD MRI AT [facility]. WILL TRY TO GET REPORT VS Pt RETRIEVAL [ End ] PT Plan: FOLLOW FOR NEURO. Follow up with PCP next week. Hold from PT at this time- Short Term Goals: 1. INCREASED POSTURE AWARENESS AND AWARENESS SHLDER/NECK CARE 2. CENTRALIZE SXS (LESS UE PARESTHESIA) Packaging Manager Goals: 1. INCREASED R UE STRENGTH 1-2 GRADES T/O 2. DECREASED NECK AND SHLDER PAIN AT LEAST 50% WITH ADLS 3. I HEP WITH DC EX PLAN Electronically signed by: Kisha Mcrae,PT, DPT
--- NOTE | 2023-12-22 13:48 | MHC.PT.DC ---
[facility] [place] Office [place] Office [place] Office [address] Keshia Cintron [address] [phone] F: [phone] F: [phone] F: [phone] F: [phone] Physical Therapy Discharge Report Diagnosis: CERVICAL RADICULOPATHY Date of Surgery: 2016 Date of Evaluation: 08/27/23 Date of Discharge: 12/22/23 Treatments to Date: 4 Cancellations to Date: No Shows to Date: Discharge Status: Recommend MD Follow-up Discharge Summary: PER LAST ASSESSMENT NOTE BY DAE HARRINGTON PT,DPT ON 09/19/23: Pt exhibits concern for nerve injury significant weakness in mm grouping C5/C6 level. Weakness in shoulder abduction, ER, and R shoulder. Pt expressing B UE parathesias in C5/C6 dermatomoe. Poor strength and AROM of R shoulder. Muscle wasting is observed in posterior infraspinatus region. Pt reports history of falls, history of substance abuse is documented, poor timelines reported by patient. Pt was seen in PT in 02/08 and was referred back to PCP for further screening. Pt states he has not had any neuro, ortho, or other appts since coming to PT last fall. Pt also awaiting on a ECHO and stress testing per notes in [facility] network. Absent DTRs bicep and bracio-radialis noted on R UE. Pt's primary PT MMoriarity, had communication with Dr. Ash yesterday regarding need for neuro consult. Patient was seen last year for similar sx at that time it was recommended he see learning solutions specialist/ and or neuro with ? need for EMG due to weakness noted. Patient states he has not seen a neurosurgeon/ortho/specialist for this same weakness. since seeing his past surgeon Dr. Juarez who has since retired (hx ACDF C5-C7). He has not had any type of EMG for his C/S or UE. Of note this therapist saw the same patient on 02/10/23 and it was documented that patient be seen by learning solutions specialist and/or neurology, question of need for EMG/testing due to weakness presented at that time. Pt WAS PUT ON HOLD. NO FURTHER PT SCHEDULED. TO AWAIT ORTHO/NEURO APPT Electronically signed by: DARINEL INFANTE PT Please sign and return to therapist. Thank you for your referral.
== END 2023-12-22 13:48 | disposition home or self-care (01) ==
LOC: HO.PTWFD 14:00
PROVIDERS: PCP Family Medicine; Visit Provider Family Medicine
DX: M54.12 Radiculopathy, cervical region (principal); R29.898 Other symptoms and signs involving the musculoskeletal system
CPT/HCPCS: 97110; 97140; 97162

== ENCOUNTER 2023-09-26 10:20 | Outpatient (AMB) | payer MEDICARE, MEDICAID, SELFPAY ==
--- NOTE | 2023-09-26 10:27 | A.OFFPC_ITS ---
Vital Signs 09/26/23 10:31 Height 5 ft 6 in Weight 213 lb 2 oz BMI 34.4 BP 118/74 Blood Pressure Location Lt brachial Position Sitting Pulse 67 Pulse Source Pulse Oximeter Pulse Oximetry (%) 95 Oxygen Delivery Method Room Air Intake Visit Reasons: f/u PT Intake Note: Patient is here to follow up on PT today. Allergies No Known Allergies Allergy (Verified 09/26/23 10:31) Tobacco use date assessed: 08/29/23 Dental Screening Dental Screen Date: 08/29/23 HPI f/u PT HPI Details Patient?returns?to?follow-up?cervical?radiculopathy?and?also?diabetes. Have?been?following?patient?for?neck?and?shoulder?pain?with?radicular?symptoms?i nto?his?arms?for?many?months?now. Had done?an?MRI?which?showed?some?cervical canal?stenosis?with out?impingement?or?nerve?compression.??Also?showed?more?severe?foraminal?stenose s?at?multiple?levels. Had?referred?patient?to?[facility]urology?and?they declined?seeing?patient as?they?said?he?should?have?radicular?symptoms?for?them?to?see?him - this?was?of?course?the?indication?for?the?referral?and?my?notes?entirely?support ?this. They?had?looked?at?the?MRI?report?however?and?did?suggest?that?Ortho?wo uld?likely?be?a?better?choice?for?referral?and?that?referral?was?made. Much?time?is?being?wasted?and?patient?has?not?had?EMG.??Patient?is?understandabl y?frustrated. [facility] Medical History Sleep apnea Arthritis Chronic neck and back pain On beta jamari at home CAD (coronary artery disease) Substance abuse HTN (hypertension) Surgical History H/O spinal fusion Stented coronary artery Hx of endoscopy Hx of colonoscopy Family History (Updated 09/26/23 @ 10:35 by Meghan Aguayo CMA) Mother COPD (chronic obstructive pulmonary disease) Cancer Substance abuse Mental health disorder Father CAD (coronary artery disease) COPD (chronic obstructive pulmonary disease) Social History Household Members: Family Housing: House Are you a primary overnight caregiver to a significant other at home: No Do you presently have visiting nurse or other home services: No Alcohol intake: former Patient Tobacco Use Status: Former Tobacco user Quit Date: yrs ago Tobacco use type: Cigarette Cigarette Packs Per Day: 1 Cigarettes Per Day: 20 Years Smoked: 20 e-Cigarette/Vaping Use: Never Used Second Hand Smoke Exposure: No Substance Use Type: Marijuana service: No Current occupational status: employed Current occupational exposures/hazards: No Cognitive needs: No Hearing needs: No Vision needs: No Questionnaire Thrive Questionnaire Date Thrive assessed: 06/18/22 MCKENNA-7 AMB Questionnaire MCKENNA-7 Date MCKENNA - 7 assessed: 06/11/23 Source: Developed by Drs. Junior Richards, Vania Vázquez, Fred Boudreaux and colleagues, with an educational zacarias from [employer]. Review of Systems Const Details: See?HPI Denies chills, Denies fatigue, Denies fever(s), Denies headache(s) and Denies weakness ENT Denies dizziness and Denies headache(s) Card Denies chest pain, Denies lightheadedness, Denies dyspnea and Denies other (Palpitations) Resp Denies cough, Denies dyspnea, Denies wheezing and Denies other ( shortness of breath) Musc Denies numbness and Denies tingling Neuro Denies dizziness, Denies headache(s), Denies numbness, Denies tingling, Denies paresthesias and Denies weakness Psych Denies anxiety and Denies depression Endo Denies fatigue Aller/Immun Denies wheezing Physical exam (Primary Care) Vital Signs: Last Vital Signs Pulse 67 09/26/23 10:31 BP 118/74 09/26/23 10:31 Pulse Ox 95 09/26/23 10:31 Oxygen Delivery Method Room Air 09/26/23 10:31 BMI result Body Mass Index 34.4 Tobacco/Smoking Status: Tobacco use Status Tobacco use date assessed 08/29/23 09/26/23 10:30 Patient Tobacco Use Status Former Tobacco user 09/26/23 10:30 Tobacco use type Cigarette 09/26/23 10:30 e-Cigarette/Vaping Use Never Used 09/26/23 10:30 Thrive Assessment: Date of Thrive Assessment Date Thrive assessed 06/18/22 09/26/23 10:30 Const General: no acute distress and well developed Nutritional Appearance: well nourished Orientation/consciousness: patient oriented x3 [facility] Head: Yes normocephalic and Yes atraumatic Eyes General: appearance normal, both eyes and all related structures Pupils: Equal, round and reactive pupils present EOM: EOMs intact bilaterally Resp Effort & Inspection: normal respiratory effort Auscultation: clear to auscultation bilaterally Cardio Rate: regular rate Rhythm: regular rhythm Heart sounds: S1 normal heart sound present, S2 normal heart sound present, no gallops, no murmurs and no rubs Neuro Other: Ongoing?neck?and?shoulder?tiffanie n?with?radiation?into?bilateral?arms.??Decreased?sensation?bilateral?fingers?and ?mild?weakness?bilateral?hands. General: patient oriented x3 and gait normal Cranial nerves: Yes Equal, round and reactive pupils present Psych Affect: normal affect Results AMB Hemoglobin A1c AMB Hemoglobin A1c 6.3 % Last Edit by Meghan Aguayo CMA on 09/26/23 11:08 Results Reviewed Results Reviewed: Laboratory Last Values Hgb A1c (Clinic) 6.3 % (4.0-6.0) H 09/26/23 10:48 Assessment and Plan Assessment & Plan (1) Cervical radiculopathy: Code(s): M54.12 - Radiculopathy, cervical region Plan: This appears to require clarification. I had made a referral to [facility] on 07/24/2023 for ?cervical radiculopathy?. [facility] neurology wrote in their recommendations Typically we recommend spine consult along with physical therapy of the neck to see if this helps improve symptoms. However if there is no radicular pain extending from the neck into upper extremity then I would recommend MRI of the brain to assess for stroke... All of my notes regarding this problem for the patient are about *radicular symptoms . I had already referred the patient to physical therapy even as early as December of the prior year. And understanding that my referral was for cervical radiculopathy which by definition is radicular pain extending from the neck into the upper extremities , none of [facility] [place] recommendations were useful except that we forego the referral to [facility] [place] and refer the patient to ortho for a spine consult. However, he would I feel have benefitted from an EMG by neurology, sooner rather than later and this still has not been done. I can only presume [facility] did not read or understand what referral was for. David & Brittany moved on to refer the patient to ortho at discussion at last visit. Lastly, I will note that I had already referred him to [facility]rology in February 2023 for this issue as well. Ultimately, I agree that given the findings of the MRI, Ortho may still be the best way to proceed. Have discussed again today and he has appt w/ [facility]?on?September?. Will?refer?him?to?[facility]urology?to?consider?a n?EMG?as?soon?as?they?can?get?him?in. I?will?follow- up?with?him?in?the?last?week?of?May?after?his?appointment?with?[facility] . (2) Paresthesia of arm: Code(s): R20.2 - Paresthesia of skin Plan: As?above (3) Shoulder pain: Code(s): M25.519 - Pain in unspecified shoulder Plan: As?above (4) Weakness of both hands: Code(s): R29.898 - Other symptoms and signs involving the musculoskeletal system Plan: Weakness?in?hands?and?significant?paresthesias?and?numbness?at?fingertips. I?feel?this?represents?progression?of?his?radicular?symptoms. Referring?him?to?[facility]urology?to?consider?an?EMG.??He?already?has?an?appointmen t?with?Ortho?which?after?reviewing?MRI?seem s?more?likely?to?help?with?any?definitive?care?verses?neuro?surgery. (5) Diabetes: Code(s): E11.9 - Type 2 diabetes mellitus without complications Plan: A1c?6.3%.??Good?control. Continue?current?medication?regimen Orders: Orders AMB Hemoglobin A1c Today Z13.9 - Encounter for screening, unspecified Referrals Neurology Referral M25.519 - Pain in unspecified shoulder, M54.12 - Radiculopathy, cervical region, R20.2 - Paresthesia of skin, R29.898 - Other symptoms and signs involving the musculoskeletal system Coding Level of Care Code Est Pt Level 3 (54377) Diagnoses Cervical radiculopathy M54.12 Paresthesia of arm R20.2 Shoulder pain M25.519 Weakness of both hands R29.898 Diabetes E11.9
[2023-09-26 10:31] VITALS: BP 118/74; PULSE 67; O2SAT 95; BMI 34.4
== END 2023-09-26 11:40 | disposition home or self-care (01) ==
PROVIDERS: PCP Family Medicine; Visit Provider Family Medicine
DX: E11.9 Type 2 diabetes mellitus without complications (principal); M54.12 Radiculopathy, cervical region; R20.2 Paresthesia of skin; M25.519 Pain in unspecified shoulder; R29.898 Other symptoms and signs involving the musculoskeletal system
CPT/HCPCS: 83036; 99213

== ENCOUNTER 2023-11-26 15:02 | Outpatient (AMB) | payer MEDICARE, MEDICAID, SELFPAY ==
[2023-11-26 15:20] VITALS: BP 110/70; PULSE 70; RESP 15; TEMP 36.5; O2SAT 97; BMI 34.4
--- NOTE | 2023-11-26 15:20 | A.OFFPC_ITS ---
Vital Signs 11/26/23 15:20 Height 5 ft 6 in Weight 213 lb 6 oz BMI 34.4 BP 110/70 Blood Pressure Location Rt brachial Position Sitting Respiration 15 Pulse 70 Pulse Source Pulse Oximeter Temp 97.7 F Temp Source Temporal Artery Scan Pulse Oximetry (%) 97 Oxygen Delivery Method Room Air Intake Visit Reasons: f/u labs Accompanied by: Self / Same As Patient Allergies No Known Allergies Allergy (Verified 11/26/23 15:31) Tobacco use date assessed: 08/29/23 Dental Screening Dental Screen Date: 08/29/23 HPI f/u labs HPI Details 58 y/o male presents to f/u chronic cond itions. Cerival radiculopathy and worsening radicular symptoms. Had referred [place] [facility] [place]. Pain meds prescribed by another provider per pt - he notes regimen does not help him much. He is requesting a referral to an visual merchandising specialist for a diabetic eye exam. [facility] Medical History Sleep apnea Arthritis Chronic neck and back pain On beta jamari at home CAD (coronary artery disease) Substance abuse HTN (hypertension) Surgical History H/O spinal fusion Stented coronary artery Hx of endoscopy Hx of colonoscopy Family History Mother COPD (chronic obstructive pulmonary disease) Cancer Substance abuse Mental health disorder Father CAD (coronary artery disease) COPD (chronic obstructive pulmonary disease) Social History Household Members: Family Housing: House Are you a primary rn transitional care to a significant other at home: No Do you presently have visiting nurse or other home services: No Alcohol intake: former Patient Tobacco Use Status: Former Tobacco user Tobacco use type: Cigarette Cigarette Packs Per Day: 1 Cigarettes Per Day: 20 Years Smoked: 20 e-Cigarette/Vaping Use: Never Used Second Hand Smoke Exposure: No Substance Use Type: Marijuana service: No Current occupational status: employed and disabled Current occupational exposures/hazards: No Cognitive needs: No Hearing needs: No Vision needs: No Questionnaire Thrive Questionnaire Date Thrive assessed: 06/18/22 MCKENNA-7 AMB Questionnaire MCKENNA-7 Date MCKENNA - 7 assessed: 06/11/23 Source: Developed by Drs. Junior Richrads, Vania Vázquez, Fred Boudreaux and colleagues, with an educational zacarias from [employer] Physical exam (Primary Care) Vital Signs: Last Vital Signs Temp 97.7 F 11/26/23 15:20 Pulse 70 11/26/23 15:20 Resp 15 11/26/23 15:20 BP 110/70 11/26/23 15:20 Pulse Ox 97 11/26/23 15:20 Oxygen Delivery Method Room Air 11/26/23 15:20 BMI result Body Mass Index 34.4 Tobacco/Smoking Status: Tobacco use Status Tobacco use date assessed 08/29/23 11/26/23 15:22 Patient Tobacco Use Status Former Tobacco user 11/26/23 15:22 Tobacco use type Cigarette 11/26/23 15:22 e-Cigarette/Vaping Use Never Used 11/26/23 15:22 Thrive Assessment: Date of Thrive Assessment Date Thrive assessed 06/18/22 11/26/23 15:22 Assessment and Plan Assessment & Plan (1) Cervical radiculopathy: Code(s): M54.12 - Radiculopathy, cervical region Plan: Ongoing?symptoms.?? C-spine?MRI?showed?significant?disc?disease Patient?has?an?appointment?with?Neurology (2) Chronic pain: Code(s): G89.29 - Other chronic pain (3) Stented coronary artery: Comment: stented/- Foll'd by Dr. Veloz- [facility] Code(s): Z95.5 - Presence of coronary angioplasty implant and graft (4) Diabetes: Code(s): E11.9 - Type 2 diabetes mellitus without complications (5) Elevated serum creatinine: Code(s): R79.89 - Other specified abnormal findings of blood chemistry (6) Decreased range of motion of right shoulder: Code(s): M25.611 - Stiffness of right shoulder, not elsewhere classified Plan: Marked?arthrosis?and?rotator?cuff?full?thickness?tears. Patient?has?seen?ortho?and?has?an?appointment?for?follow- up.??Plan?is?right?shoulder?replacement. Patient?does?not?have pain?in?shoulder.??Just?decreased?range?of?motion. I?think?Neck?pain?and?paresthesias?in?hand?are?more?likely?secondary?to?cervical ?radiculopathy Follow-up?with?ortho?for?right?shoulder?repair Orders: Orders Hemoglobin A1c Today E11.9 - Type 2 diabetes mellitus without complications, R73.01 - Impaired fasting glucose Comprehensive [place]. Panel Fast Today R79.89 - Other specified abnormal findings of blood chemistry, Z00.00 - Encounter for general adult medical examination without abnormal findings Referrals Ophthalmology Referral E11.9 - Type 2 diabetes mellitus without complications Coding Level of Care Code Est Pt Level 4 (12379) Diagnoses Cervical radiculopathy M54.12 Chronic pain G89.29 Stented coronary artery Z95.5 Diabetes E11.9 Elevated serum creatinine R79.89 Decreased range of motion of right shoulder M25.611
== END 2023-11-26 16:10 | disposition home or self-care (01) ==
PROVIDERS: PCP Family Medicine; Visit Provider Family Medicine
DX: M54.12 Radiculopathy, cervical region (principal); E11.9 Type 2 diabetes mellitus without complications; G89.29 Other chronic pain; Z95.5 Presence of coronary angioplasty implant and graft; R79.89 Other specified abnormal findings of blood chemistry; M25.611 Stiffness of right shoulder, not elsewhere classified
CPT/HCPCS: 99214

== ENCOUNTER 2023-12-12 14:45 | Outpatient (AMB) | payer MEDICARE, MEDICAID, SELFPAY ==
[2023-12-12 14:48] VITALS: BP 100/66; PULSE 61; O2SAT 97; BMI 34.4
--- NOTE | 2023-12-12 14:48 | A.OFFVIS_ITS ---
Vital Signs 12/12/23 14:48 Height 5 ft 6 in Weight 213 lb BMI 34.4 BP 100/66 Blood Pressure Location Lt brachial Position Sitting Pulse 61 Pulse Source Pulse Oximeter Pulse Oximetry (%) 97 Oxygen Delivery Method Room Air Intake Visit Reasons: Asthma Allergies No Known Allergies Allergy (Verified 12/12/23 14:52) HPI HPI Asthma: Details: David is a pleasant 58 year old male, former tobacco smoker with an approximate 10 pack year history, quit 20 years ago, and current everyday heavy marijuana smokery, asthma and environmental allergies. He was well controlled on symbicort however insurance no longer covering and was switched to Breo 100 mcg. He reports suboptimal effect and continues with dyspnea. Of note, he is also undergoing cardiac evaluation and has upcoming right heart cath next week. He notes dyspnea with minimal exertion with associated chest tightness. He denies cough or wheezing. [facility] Medical History Sleep apnea Arthritis Chronic neck and back pain On beta jamari at home CAD (coronary artery disease) Substance abuse HTN (hypertension) Surgical History H/O spinal fusion Stented coronary artery Hx of endoscopy Hx of colonoscopy Family History Mother COPD (chronic obstructive pulmonary disease) Cancer Substance abuse Mental health disorder Father CAD (coronary artery disease) COPD (chronic obstructive pulmonary disease) Social History Household Members: Family Housing: House Are you a primary career development consultant to a significant other at home: No Do you presently have visiting nurse or other home services: No Alcohol intake: former Patient Tobacco Use Status: Former Tobacco user Tobacco use type: Cigarette Cigarette Packs Per Day: 1 Cigarettes Per Day: 20 Years Smoked: 20 e-Cigarette/Vaping Use: Never Used Second Hand Smoke Exposure: No Substance Use Type: Marijuana service: No Current occupational status: employed and disabled Current occupational exposures/hazards: No Cognitive needs: No Hearing needs: No Vision needs: No Review of Systems Const Denies chills, Denies excessive sweating, Denies fever(s), Denies headache(s) and Denies night sweats Eyes Denies dry eyes, Denies irritation and Denies itchy eyes ENT Reports Normal hearing present, Denies headache(s), Denies nasal congestion, Denies nasal discharge, Denies post nasal drip and Denies sore throat Card Denies chest pain, Denies chest pain at rest, Denies chest pain with activity, Denies claudication, Denies leg edema, Denies orthopnea and Denies paroxysmal nocturnal dyspnea Resp Denies chest congestion, Denies cough, Denies excessive phlegm production, Denies pain on inspiration, Denies pain with cough, Denies stridor and Denies wheezing Musc Denies myalgias Neuro Reports Normal hearing present and Denies headache(s) Endo Denies excessive sweating Librado/Lymph Denies lymphadenopathy Aller/Immun Denies itchy eyes, Denies seasonal rhinorrhea and Denies wheezing Physical Exam Vital Signs: Last Vital Signs Pulse 61 12/12/23 14:48 BP 100/66 12/12/23 14:48 Pulse Ox 97 12/12/23 14:48 Oxygen Delivery Method Room Air 12/12/23 14:48 BMI result Body Mass Index 34.4 Const General: cooperative, healthy appearing, comfortable, no acute distress, well developed and alert Nutritional Appearance: obese Orientation/consciousness: patient oriented x3 Limitations: no limitations HEENT Head: Yes normal to inspection, Yes normocephalic and Yes atraumatic Ears: hearing grossly normal bilaterally and external ears normal Eyes General: appearance normal, both eyes and all related structures Eyelids: Yes eyelids normal Sclerae: sclerae normal EOM: EOMs intact bilaterally Neck Neck: Yes normal visual inspection and Yes no lymphadenopathy Lymphatic: no lymphadenopathy noted Chest Chest palpation & inspection: normal inspection of the chest Resp Effort & Inspection: normal respiratory effort, able to speak in complete sentences, no audible wheezes, no cough, no stridor, not tachypneic, no tripod positioning and no use of accessory muscles Auscultation: clear to auscultation bilaterally Cardio Jugular venous distension: no JVD Rate: regular rate Rhythm: regular rhythm Skin Other: warm, dry General skin exam: no rashes or lesions noted Neuro General: patient oriented x3 Cranial nerves: Yes Normal hearing present Cognition (Neuro): normal cognition Gait exam (Neuro): Normal gait present Extrem General: Yes normal to inspection, Yes capillary refill normal, Yes no clubbing, cyanosis or edema and Yes no pedal edema Psych Appearance: grossly normal and well kempt Speech and movement: Normal speech and movement present and Clear speech present Affect: normal affect Attitude: cooperative Thought process: Normal thought process present Thought content: Normal thought content present Insight: Good insight present (Psych) Judgement: Good judgement present (Psych) Office Procedures 6 Minute Walk Time:: 15:30 SPO2 % at rest: 99 Pulse at rest: 57 SPO2 % during excercise: 96 Pulse during excercise: 62 SPO2 % after excercise: 97 Pulse after excercise: 60 Distance in yards walked: 150 Michael Score: 5 Performance Observations:: Patient walked on level ground unassisted at a moderate pace. Maintained O2 saturation of 96% or more and pulse rate in the low 60's. Patient complained of feeling tired overall and lightheaded during the walk after approx 3 minutes. O2 saturation steady at 97-98%. Patient preferred not to finish the walk. No respiratory distress noted..Patient denies chest pain. No supplemental oxygen required. [address] - 6 Minute Walk Assessment & Plan Assessment & Plan (1) Asthma: Code(s): J45.909 - Unspecified asthma, uncomplicated Category: Medical (2) Dyspnea on exertion: Code(s): R06.09 - Other forms of dyspnea Category: Medical (3) Multiple pulmonary nodules: Code(s): R91.8 - Other nonspecific abnormal finding of lung field Category: Medical (4) Environmental allergies: Code(s): Z91.09 - Other allergy status, other than to drugs and biological substances Category: Medical Plan David reports worsening dyspnea on exertion. Denies BLE edema, PND or orthopnea. He is scheduled for a right heart cath next Friday for further evalution. 6MWT performed and patient does not require supplemental oxygen after 3 minutes of exertion, however patient with significant dyspnea and fatigue. Given that patient reports no improvement with Breo 100 mcg, using levalbuterol frequently with moderate improvement, will increase to 200 mcg. However had lengthy discussion that likely his symptoms are cardiac in nature. Instructed patient to call with results after right heart cath. Will request reports after procedure performed. Will schedule close follow up.All questions were answered and patient is in agreement of plan. Orders: Orders AMB 6 minute walk 12/12/23 R06.09 - Other forms of dyspnea Medications: New fluticasone furoate-vilanterol 200-25 mcg/dose (Breo Ellipta) 1 inh inhalation DAILY 60 ea 3RF Refilled levalbuterol tartrate 45 mcg/actuation 1 puff inhalation Q4-6H PRN 1 ea 3RF shortness of breath Discontinued fluticasone furoate-vilanterol 100-25 mcg/dose (Breo Ellipta) Discontinued Reason: Patient Completed Course 1 inh inhalation DAILY 60 ea 3RF Coding Level of Care Code Est Pt Level 4 (00496) Diagnoses Asthma J45.909 Dyspnea on exertion R06.09 Multiple pulmonary nodules R91.8 Environmental allergies Z91.09 CPT Codes Coding ([id number])
[2023-12-12 15:52] VITALS: PULSE 57; O2SAT 99
== END 2023-12-12 15:53 | disposition home or self-care (01) ==
PROVIDERS: PCP Family Medicine; Visit Provider Nurse Practitioner Family
DX: J45.909 Unspecified asthma, uncomplicated (principal)
CPT/HCPCS: 94618; 99214

== ENCOUNTER → 2023-12-12 14:45 | Outpatient (BNVA) | payer MEDICARE, MEDICAID, SELFPAY | PROVIDERS: PCP Family Medicine; Visit Provider Nurse Practitioner Family | DX: J45.909 Unspecified asthma, uncomplicated (principal); R06.09 Other forms of dyspnea; R91.8 Other nonspecific abnormal finding of lung field; Z91.09 Other allergy status, other than to drugs and biological substances | CPT/HCPCS: 94618; 99212 ==

== ENCOUNTER 2024-01-05 13:57 | Outpatient (AMB) | payer MEDICARE, MEDICAID, SELFPAY ==
--- NOTE | 2024-01-05 14:10 | A.OFFPC_ITS ---
Vital Signs 01/05/24 14:19 Height 5 ft 5 in Weight 214 lb 4 oz BMI 35.6 Position Sitting Respiration 16 Pulse 62 Pulse Source Pulse Oximeter Temp 98 F Temp Source Tympanic Pulse Oximetry (%) 97 Oxygen Delivery Method Room Air Intake Visit Reasons: preop for heart surgery Intake Note: pre -op for heart surgery Allergies No Known Allergies Allergy (Verified 01/05/24 14:11) Tobacco use date assessed: 08/29/23 Dental Screening Dental Screen Date: 08/29/23 HPI preop for heart surgery HPI Details 58-year-old?male?with?history?of coronary?artery?disease?with?stent,?COPD?and?asthma, presents for preoperative clearance prior to?cardiac?surgery.? Patient?also?notes?recent?exposure?to?COVID?and?also?MRSA Patient?tested?positive?for?MRSA?today. Patient?says?his?father?currently?has?COVID?and?he?had?exposure?to?him?this?morn ing Procedure: Coronary Bypass Date:?01/08/2024 Surgeon: Dr Benitez at [facility] Anesthesia: General Cardiac Hx: ?Known?coronary?artery?disease?and?stent Pulmonary Hx: ?History?of?COPD?and?asthma - currently?fairly?well?controlled?and?patient?is?breathing?easily Prior Surgical Complications: None Prior Anesthesia Complications: None Coag issues: None. Pt is on aspirin Functional [place]: ?Patient?can?only?walk?about?150?ft?without?getting?winded [facility] Medical History Sleep apnea Arthritis Chronic neck and back pain On beta jamari at home CAD (coronary artery disease) Substance abuse HTN (hypertension) Surgical History H/O spinal fusion Stented coronary artery Hx of endoscopy Hx of colonoscopy Family History Mother COPD (chronic obstructive pulmonary disease) Cancer Substance abuse Mental health disorder Father CAD (coronary artery disease) COPD (chronic obstructive pulmonary disease) Social History Household Members: Family Housing: House Are you a primary child care giver to a significant other at home: No Do you presently have visiting nurse or other home services: No Alcohol intake: former Patient Tobacco Use Status: Former Tobacco user Tobacco use type: Cigarette Cigarette Packs Per Day: 1 Cigarettes Per Day: 20 Years Smoked: 20 e-Cigarette/Vaping Use: Never Used Second Hand Smoke Exposure: No Substance Use Type: Marijuana service: No Current occupational status: employed and disabled Current occupational exposures/hazards: No Cognitive needs: No Hearing needs: No Vision needs: No Questionnaire Thrive Questionnaire Date Thrive assessed: 06/18/22 MCKENNA-7 AMB Questionnaire MCKENNA-7 Date MCKENNA - 7 assessed: 06/11/23 Source: Developed by Drs. Junior Richards, Vania Vázquez, Fred Boudreaux and colleagues, with an educational zacarias from [employer]. Review of Systems Const Denies chills, Denies fatigue, Denies fever(s), Denies headache(s) and Denies weakness ENT Denies dizziness and Denies headache(s) Card Denies dyspnea Resp Denies cough, Denies dyspnea, Denies wheezing and Denies other (shortness of breath) Musc Denies numbness and Denies tingling Neuro Denies dizziness, Denies headache(s), Denies numbness, Denies tingling and Denies weakness Psych Denies anxiety and Denies depression Endo Denies fatigue Aller/Immun Denies wheezing Physical exam (Primary Care) Vital Signs: Last Vital Signs Temp 98 F 01/05/24 14:19 Pulse 62 01/05/24 14:19 Resp 16 01/05/24 14:19 Pulse Ox 97 01/05/24 14:19 Oxygen Delivery Method Room Air 01/05/24 14:19 BMI result Body Mass Index 35.6 Tobacco/Smoking Status: Tobacco use Status Tobacco use date assessed 08/29/23 01/05/24 14:10 Patient Tobacco Use Status Former Tobacco user 01/05/24 14:10 Tobacco use type Cigarette 01/05/24 14:10 e-Cigarette/Vaping Use Never Used 01/05/24 14:10 Thrive Assessment: Date of Thrive Assessment Date Thrive assessed 06/18/22 01/05/24 14:10 Const General: well developed; No acute distress Nutritional Appearance: well nourished Orientation/consciousness: patient oriented x3 HENMT Head: Yes normocephalic and Yes atraumatic Eyes General: appearance normal, both eyes and all related structures Pupils: Equal, round and reactive pupils present EOM: EOMs intact bilaterally Resp Effort & Inspection: normal respiratory effort Neuro General: patient oriented x3 and gait normal Cranial nerves: Yes Equal, round and reactive pupils present Psych Affect: normal affect Assessment and Plan Assessment & Plan (1) Pre-operative clearance: Code(s): Z01.818 - Encounter for other preprocedural examination Plan: 58-year- old?male?with?history?of?coronary?artery?disease?and?stents,?COPD,?asthma?and?di abetes?presents?for?preoperative?clearance?prior?to?coronary?artery?bypass. Patient?has?had?exposure?to?COVID-19?viru s?today?through?close?contact;?father.??Currently?patient?has?no?symptoms Patient?tested?positive?for?MRSA Recommend?rescheduling?surgery. Will?give?him?a?script?for?MRSA?infection/prophylaxis Recommend?also?rescheduling?due?to?COVID-19?exposure Patient?has?poor?functional?[place]?but?is?at?baseline?and?is?otherwise?optimize d. Will?get?him?back?in?about?10?days?for?preoperative?clearance. (2) CAD (coronary artery disease): Code(s): I25.10 - Atherosclerotic heart disease of [place]into coronary artery without angina pectoris Plan: Awaiting?scheduling?for?coronary?artery?bypass (3) Exposure to COVID-19 virus: Code(s): Z20.822 - Contact with and (suspected) exposure to COVID-19 Plan: Recent?exposure Will?check?COVID-19?testing?at?upcoming?visit (4) Exposure to MRSA: Code(s): Z20.818 - Contact with and (suspected) exposure to other bacterial communicable diseases Plan: Exposure?and?testing?positive?for?MRSA Will?give?him?a?script?for?doxycycline?as?he?has?lisinopril?which?can?interact?w ith?Bactrim Can?also?use?topicals?such?as?mupirocin?in?his?nose Orders: Orders ECG 12 lead EKG Today I25.10 - Atherosclerotic heart disease of minto coronary artery without angina pectoris Medications: New doxycycline hyclate 100 mg PO BID 10 days 20 tabs 0RF Coding Level of Care Code Est Pt Level 4 (24788) Diagnoses Pre-operative clearance Z01.818 CAD (coronary artery disease) I25.10 Exposure to COVID-19 virus Z20.822 Exposure to MRSA Z20.818
[2024-01-05 14:19] VITALS: PULSE 62; RESP 16; TEMP 36.6; O2SAT 97; BMI 35.6
== END 2024-01-05 14:58 | disposition home or self-care (01) ==
PROVIDERS: PCP Family Medicine; Visit Provider Family Medicine
DX: I25.10 Atherosclerotic heart disease of native coronary artery without angina pectoris (principal); J44.9 Chronic obstructive pulmonary disease, unspecified; Z01.818 Encounter for other preprocedural examination; Z20.822 Contact with and (suspected) exposure to COVID-19; Z20.818 Contact with and (suspected) exposure to other bacterial communicable diseases
CPT/HCPCS: 99214

== ENCOUNTER 2024-03-09 12:35 | Outpatient (AMB) | payer MEDICARE, MEDICAID, SELFPAY ==
--- NOTE | 2024-03-09 12:44 | MHC.PC.OV ---
Vital Signs 03/09/24 12:57 Height 5 ft 5 in Weight 206 lb 4 oz BMI 34.3 BP 102/70 Blood Pressure Location Rt brachial Position Sitting Respiration 16 Pulse 67 Pulse Source Pulse Oximeter Temp 97.3 F Temp Source Oral Pulse Oximetry (%) 96 Oxygen Delivery Method Room Air Intake Visit Reasons: f/u diabetes. aruna izaguirre [facility] 02/18 Intake Note: patient here to follow up on diabetes and kidney function Audio Visual Aids Director Required: No Allergies No Known Allergies Allergy (Verified 03/09/24 13:04) Medication List - Last Reconciled 03/09/24 by Tiffanie Rojas CNP apixaban (Eliquis) 5 mg PO BID aspirin (St Von Aspirin) 81 mg PO DAILY blood sugar diagnostic (FreeStyle Lite Strips) DX: E11.9, test blood sugar once a day, 90 days blood-glucose meter (FreeStyle Lite Meter kit) DX: E11.9, test blood sugar once a day, duration 999 days buspirone 5 mg PO DAILY clonazepam 1.5 mg PO BEDTIME cyclobenzaprine 10 mg PO BEDTIME diltiazem HCl ER 180 mg PO DAILY ezetimibe 10 mg PO DAILY fluticasone furoate-vilanterol 200-25 mcg/dose (Breo Ellipta) 1 inh inhalation DAILY gabapentin 600 mg PO TID glipizide ER 2.5 mg PO QAM 90 days lancets (FreeStyle Lancets) As directed levalbuterol tartrate 45 mcg/actuation 1 puff inhalation Q4-6H PRN metformin 250 mg (1/2 x 500 mg) PO DAILY 90 days metoprolol succinate ER 50 mg PO BID oxycodone-acetaminophen 10-325 mg 1 tab PO TID PRN pantoprazole 40 mg PO QPM 30 days rosuvastatin 40 mg PO ONCE Tobacco use date assessed: 03/09/24 Dental Screening Dental Screen Date: 03/09/24 Did you have a dental visit in the last 12 months?: Yes Did you have a dental problem in the last 6 months where you did not have access to dental care?: No Was dental information given to patient?: Patient has dentist HPI HPI Comments History of Present Illness Details 58-year-old male presents for diabetes follow-up He notes that the purpose of his appointment is a follow up for a CABG follow-up. He had CABG in 12/2022. He notes significantly improvement of his health since the procedure. He notes that he feels good, besides daily moderate fatigue and chronic low back, bilat hip/knee pain. He has not been working since a month before the procedure and states that he thinks he will be ready to resume work in the next 2 week. He notes that he is followed by Dr. Veloz at [facility]. He recently started cardiac rehab at [facility] and goes 2 days weekly. He walks on days he does not have rehab. He notes that he has been making healthy dietary changes and sleeping well. He is followed by Dr. Neal, physiatry, [place], [place] He admits to taking his medications as prescribed without adverse reactions While hospitalized, his glipizide was changed to 5 mg daily and metformin to 500 mg twice daily PFSH Medical History Sleep apnea Arthritis Chronic neck and back pain On beta jamari at home CAD (coronary artery disease) Substance abuse HTN (hypertension) Surgical History H/O spinal fusion Stented coronary artery Hx of endoscopy Hx of colonoscopy Family History Mother COPD (chronic obstructive pulmonary disease) Cancer Substance abuse Mental health disorder Father CAD (coronary artery disease) COPD (chronic obstructive pulmonary disease) Social History Household Members: Family Housing: House Are you a primary daycare manager to a significant other at home: No Do you presently have visiting nurse or other home services: No Alcohol intake: former Patient Tobacco Use Status: Former Tobacco user Tobacco use type: Cigarette Cigarette Packs Per Day: 1 Cigarettes Per Day: 20 Years Smoked: 20 e-Cigarette/Vaping Use: Never Used Second Hand Smoke Exposure: No Substance Use Type: Marijuana service: No Current occupational status: employed and disabled Current occupational exposures/hazards: No Cognitive needs: No Hearing needs: No Vision needs: No Questionnaire PHQ-9 Over the last 2 weeks, how often have you been bothered by any of the following problems? 1. Little interest or pleasure in doing things: not at all 2. Feeling down, depressed, or hopeless: not at all 3. Trouble falling or staying asleep, or sleeping too much: not at all 4. Feeling tired or having little energy: not at all 5. Poor appetite or overeating: not at all 6. Feeling bad about yourself - or that you are a failure or have let yourself or your family down: not at all 7. Trouble concentrating on things, such as reading the newspaper or watching television: several days 8. Moving or speaking so slowly that other people could have noticed. Or the opposite - being so fidgety or restless that you have been moving around a lot more than usual: several days 9. Thoughts that you would be better off or of hurting yourself in some way: not at all Total score: 2 Source: Developed by Drs. Junior Richards, Vania Vázquez, Fred Boudreaux and colleagues, with an educational zacarias from [employer]. Thrive Questionnaire Date Thrive assessed: 06/18/22 MCKENNA-7 AMB Questionnaire MCKENNA-7 Date MCKENNA - 7 assessed: 06/11/23 Source: Developed by Drs. Junior Richards, Vania Vázquez, Fred Boudreaux and colleagues, with an educational zacarias from [employer]. Review of Systems Const Details: Const Denies chills, reports fatigue, Denies fever(s), Denies headache(s) and Denies weakness ENT Denies dizziness and Denies headache(s) Card Denies chest pain, Denies lightheadedness, Denies dyspnea and Denies other (Palpitations) Resp Denies cough, Denies dyspnea, Denies wheezing and Denies other ( shortness of breath) GI Denies abdominal pain, Denies melena, Denies hematochezia, Denies change in bowel habits, Denies dyspepsia and Denies nausea Denies hematuria and Denies dysuria Musc Denies abnormal gait, Denies myalgias, Denies arthralgias, Denies numbness and Denies tingling Skin/Breast Denies rash, Denies unusual bruising and Denies wounds Neuro Denies abnormal gait, Denies dizziness, Denies headache(s), Denies memory loss, Denies numbness, Denies Sensory deficit (Neuro), Denies tingling and Denies weakness Psych Denies anxiety, Denies depression, Denies memory loss Endo Denies cold intolerance, reports fatigue, Denies heat intolerance, Denies polydipsia and Denies polyuria Aller/Immun Denies wheezing Physical exam (Primary Care) Tobacco/Smoking Status: Tobacco use Status Tobacco use date assessed 08/29/23 03/09/24 12:46 Patient Tobacco Use Status Former Tobacco user 03/09/24 12:46 Tobacco use type Cigarette 03/09/24 12:46 e-Cigarette/Vaping Use Never Used 03/09/24 12:46 PHQ-9: PHQ-9 Score PHQ-9: Total score 2 03/09/24 12:46 Thrive Assessment: Date of Thrive Assessment Date Thrive assessed 06/18/22 03/09/24 12:46 Const Other: General: no acute distress and well developed Nutritional Appearance: well nourished Orientation/consciousness: patient oriented x3 HENMT Head: Yes normocephalic and Yes atraumatic Eyes General: appearance normal, both eyes and all related structures Pupils: Equal, round and reactive pupils present EOM: EOMs intact bilaterally Resp Effort & Inspection: normal respiratory effort Auscultation: clear to auscultation bilaterally Cardio Rate: regular rate Rhythm: regular rhythm Heart sounds: S1 normal heart sound present, S2 normal heart sound present, no gallops, no murmurs and no rubs GI Palpation (GI): No Abdominal aortic bruit present, Soft to palpation, nontender, No hepatosplenomegaly present and No Rebound tenderness present Auscultation: normal bowel sounds General: Yes no CVA tenderness Back/Spine/Pelvis Back: no CVA tenderness Extrem General: Yes normal to inspection, No edema and No calf tenderness Skin General: warm and dry. Normal skin color. Normal skin turgorl Neuro General: patient oriented x3, gait normal and no focal neuro deficit Cranial nerves: Yes Equal, round and reactive pupils present Cognition (Neuro): normal cognition Gait exam (Neuro): Normal gait present Sensory Exam: No Sensory deficit (Neuro) Psych Appearance: grossly normal Affect: normal affect Attitude: cooperative Thought process: Normal thought process present Results AMB Hemoglobin A1c AMB Hemoglobin A1c 5.3 % Last Edit by iDanna Busch MA on 03/09/24 13:23 Coding Level of Care Code Est Pt Level 3 (26470) Diagnoses Diabetes E11.9 Fatigue R53.83 Assessment & Plan Assessment & Plan (1) Diabetes: Code(s): E11.9 - Type 2 diabetes mellitus without complications Category: Medical Plan: A1c today is 5.3%, within goal of less than 7.0%. Previous A1c was 6.3% Continue current treatment regimen ADA diet and routine exercise encouraged Follow-up with PCP in 2 weeks for hospital discharge follow-up or sooner with symptoms or concerns Verbalized understanding and agreed with the treatment plan (2) Fatigue: Code(s): R53.83 - Other fatigue Category: Medical Plan: History of chronic fatigue. Routine exercise encouraged. Follow-up with PCP for labs review and chronic disease management Verbalized understanding and agreed with the plan Orders: Orders AMB Hemoglobin A1c Today Z13.9 - Encounter for screening, unspecified
[2024-03-09 12:57] VITALS: BP 102/70; PULSE 67; RESP 16; TEMP 36.3; O2SAT 96; BMI 34.3
== END 2024-03-09 13:52 | disposition home or self-care (01) ==
PROVIDERS: PCP Family Medicine; Visit Provider Nurse Practitioner Family
DX: E11.9 Type 2 diabetes mellitus without complications (principal); R53.83 Other fatigue; Z13.9 Encounter for screening, unspecified

== ENCOUNTER → 2024-03-09 12:35 | Outpatient (BNVA) | payer MEDICARE, MEDICAID, SELFPAY | PROVIDERS: PCP Family Medicine; Visit Provider Nurse Practitioner Family | DX: E11.9 Type 2 diabetes mellitus without complications (principal); R53.83 Other fatigue | CPT/HCPCS: 83036; 96127; 99212 ==

== ENCOUNTER 2024-03-15 10:59 | Outpatient (AMB) | payer MEDICARE, MEDICAID, SELFPAY ==
--- NOTE | 2024-03-15 11:38 | A.OFFPC_ITS ---
Vital Signs 03/15/24 11:45 Height 5 ft 5 in Weight 214 lb 6 oz BMI 35.7 BP 121/63 Blood Pressure Location Lt brachial Position Sitting Respiration 16 Pulse 59 Pulse Source Pulse Oximeter Temp 97.2 F Temp Source Temporal Artery Scan Pulse Oximetry (%) 97 Oxygen Delivery Method Room Air Intake Visit Reasons: DALIA Salas Intake Note: D/C follow up Allergies No Known Allergies Allergy (Verified 03/15/24 11:42) Tobacco use date assessed: 03/09/24 Dental Screening Dental Screen Date: 03/09/24 HPI DALIA Salas HPI Details Admit?date?01/08/2024 Discharge?date: ?02/13/2024 Now?s/p?coronary?artery?bypass?graft?x3. He notes that he is followed by Dr. Veloz at [facility]. He recently started cardiac rehab at [facility] and goes 2 days weekly. He walks on days he does not have rehab. He notes that he has been making healthy dietary changes and sleeping well. He is followed by Dr. Neal, physiatry, [place], [place]. While hospitalized, his glipizide was changed to 5 mg daily and metformin to 500 mg twice daily Paroxysmal?atrial?fibr illation?after?CABG.??Was?given?Eliquis?and?he?is?rate?controlled. [facility] Medical History Sleep apnea Arthritis Chronic neck and back pain On beta jamari at home CAD (coronary artery disease) Substance abuse HTN (hypertension) Surgical History H/O spinal fusion Stented coronary artery Hx of endoscopy Hx of colonoscopy Family History Mother COPD (chronic obstructive pulmonary disease) Cancer Substance abuse Mental health disorder Father CAD (coronary artery disease) COPD (chronic obstructive pulmonary disease) Social History (Reviewed 12/12/23 @ 14:52 by Kassandra Thapa [facility]) Household Members: Family Housing: House Are you a primary interior plant caretaker to a significant other at home: No Do you presently have visiting nurse or other home services: No Alcohol intake: former Patient Tobacco Use Status: Former Tobacco user Tobacco use type: Cigarette Cigarette Packs Per Day: 1 Cigarettes Per Day: 20 Years Smoked: 20 e-Cigarette/Vaping Use: Never Used Second Hand Smoke Exposure: No Substance Use Type: Marijuana service: No Current occupational status: employed and disabled Current occupational exposures/hazards: No Cognitive needs: No Hearing needs: No Vision needs: No Questionnaire Thrive Questionnaire Date Thrive assessed: 03/15/24 I am a: Patient What is your living situation today?: I have a steady place to live Within the past 12 months, did the food you bought not last and you didn't have the money to get more?: Often true Within the past 12 months, did you worry whether your food would run out before you got money to buy more?: Often true Do you have trouble paying for medicines?: No Do you have trouble getting transportation to medical appointments?: No Do you have trouble paying your heating and electricity bill?: Yes Do you have trouble taking care of your child, family member or friend?: No Do you have trouble with day-to-day activities such as bathing, preparing meals, shopping, managing finances, etc.?: Yes Are you currently unemployed and looking for a job?: No Are you interested in more education?: No THRIVE Score: 3 AUDIT C Alcohol Use Questionnaire (AUDIT-C) 1. How often do you have a drink containing alcohol?: Never Total Score: 0 MCKENNA-7 AMB Questionnaire MCKENNA-7 Date MCKENNA - 7 assessed: 06/11/23 Feeling nervous, anxious, or on edge: 1 = Several days Not being able to stop or control worryin = More than half the days Worrying too much about different things: 2 = More than half the days Trouble relaxin = More than half the days Being so restless that it is hard to sit still: 1 = Several days Becoming easily annoyed or irritable: 1 = Several days Feeling afraid as if something awful might happen: 1 = Several days Total MCKENNA-7 score (0-4 normal; 5-9 mild; 10-14 moderate; 15-21 severe): 10 Source: Developed by Drs. Junior Richards, Vania Vázquez, Fred Boudreaux and colleagues, with an educational zacarias from [employer]. Review of Systems Const Denies chills, Denies fatigue, Denies fever(s), Denies headache(s) and Denies weakness ENT Denies dizziness and Denies headache(s) Card Denies chest pain, Denies lightheadedness, Denies dyspnea and Denies other (Palpitations) Resp Denies cough, Denies dyspnea, Denies wheezing and Denies other ( shortness of br eath) Musc Denies numbness and Denies tingling Neuro Denies dizziness, Denies headache(s), Denies numbness, Denies tingling, Denies paresthesias and Denies weakness Psych Denies anxiety and Denies depression Endo Denies fatigue Aller/Immun Denies wheezing Physical exam (Primary Care) Vital Signs: Last Vital Signs Temp 97.2 F 03/15/24 11:45 Pulse 59 03/15/24 11:45 Resp 16 03/15/24 11:45 BP 121/63 03/15/24 11:45 Pulse Ox 97 03/15/24 11:45 Oxygen Delivery Method Room Air 03/15/24 11:45 BMI result Body Mass Index 35.7 Tobacco/Smoking Status: Tobacco use Status Tobacco use date assessed 03/09/24 03/15/24 11:39 Patient Tobacco Use Status Former Tobacco user 03/15/24 11:39 Tobacco use type Cigarette 03/15/24 11:39 e-Cigarette/Vaping Use Never Used 03/15/24 11:39 Thrive Assessment: Date of Thrive Assessment Date Thrive assessed 03/15/24 03/15/24 11:39 Const General: no acute distress and well developed Nutritional Appearance: well nourished Orientation/consciousness: patient oriented x3 [facility] Head: Yes normocephalic and Yes atraumatic Eyes General: appearance normal, both eyes and all related structures Pupils: Equal, round and reactive pupils present EOM: EOMs intact bilaterally Resp Effort & Inspection: normal respiratory effort Auscultation: clear to auscultation bilaterally Cardio Rate: regular rate Rhythm: regular rhythm Heart sounds: S1 normal heart sound present, S2 normal heart sound present, no gallops, no murmurs and no rubs Neuro General: patient oriented x3 and gait normal Cranial nerves: Yes Equal, round and reactive pupils present Psych Affect: normal affect Coding Level of Care Code Est Pt Level 3 (89292) Diagnoses S/P CABG (coronary artery bypass graft) Z95.1 CAD (coronary artery disease) I25.10 Paroxysmal A-fib I48.0 Assessment & Plan Assessment & Plan (1) S/P CABG (coronary artery bypass graft): Code(s): Z95.1 - Presence of aortocoronary bypass graft Category: Surgical Plan: 58-year-old?male?with?a?history?of?coronary?artery?disease?and?now?s/p?CABG?x3?i n?[place]. He?has?started?cardiac?rehab.??Patient?is?feeling?well?with?no?complaints. He?did?have?paroxysmal?atrial?fibrillation?after?procedure. Now?on?Eliquis?and?he?is?rate?controlled?on?metoprolol.??Currently?in?regular?rh ythm. Stable. Patient?may?return?to?work.??He?will?let?me?know?if?he?is?having?any?problems. Follow-up?with?Cardiology,?DrRenee?Roselia. Continue?cardiac?rehab (2) CAD (coronary artery disease): Code(s): I25.10 - Atherosclerotic heart disease of [place] coronary artery without angina pectoris Category: Medical Plan: As?above (3) Paroxysmal A-fib: Code(s): I48.0 - Paroxysmal atrial fibrillation Category: Medical Plan: As?above
[2024-03-15 11:45] VITALS: BP 121/63; PULSE 59; RESP 16; TEMP 36.2; O2SAT 97; BMI 35.7
== END 2024-03-15 13:14 | disposition home or self-care (01) ==
PROVIDERS: PCP Family Medicine; Visit Provider Family Medicine
DX: Z95.1 Presence of aortocoronary bypass graft (principal); I25.10 Atherosclerotic heart disease of native coronary artery without angina pectoris; I48.0 Paroxysmal atrial fibrillation

== ENCOUNTER → 2024-03-15 10:59 | Outpatient (BNVA) | payer MEDICARE, MEDICAID, SELFPAY | PROVIDERS: PCP Family Medicine; Visit Provider Family Medicine | DX: I25.10 Atherosclerotic heart disease of native coronary artery without angina pectoris (principal); I48.0 Paroxysmal atrial fibrillation; Z95.1 Presence of aortocoronary bypass graft | CPT/HCPCS: 99212 ==

== ENCOUNTER 2024-04-05 07:58 | Outpatient (AMB) | payer MEDICARE, MEDICAID, SELFPAY ==
[2024-04-05 08:06] VITALS: BMI 35.6
--- NOTE | 2024-04-05 08:06 | MHC.OFFVIS ---
Vital Signs 04/05/24 08:06 Height 5 ft 5 in Weight 214 lb BMI 35.6 Intake Visit Reasons: INP-Radiculopathy/Anesthesia of skin Intake Note: Patient presents for anesthesia of the skin. Allergies No Known Allergies Allergy (Verified 04/05/24 08:09) HPI Comments Details: 58 yo male with h/o CABG, T2DM, and HTN Presents for bilateral Lower extremity and UE numbness and pain. Dr. Ash- refered him for cognitive decline, numbness and pain. He is having word retrieval and mid-sentence will forget what he was saying, since CABG in Dec. Rehab started in January 2024. He is frustrated with forgetting, and cant remember what he was going to get and makes repeated trips back and forth. 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 Stress is a lopez with life issues, father is a trigger with house issues, and he is seeing a therapist. Sober since 89, chronic pain, spinal fusion, and has been seeing a hat and cap parts cutter hand who manages his pain meds, and he is using MJ for chronic pain. Sleeps good for 2-4 hours then up and paces, gets about 4-5 hours of sleep due to the bilateral numbness and pain in his feet which radiates to the shins, feet are worse at night than the hands and wrist. He moves the feet and is unable to get comfortable. He does snore, and talks in his sleep. Sleep study conducted in 2023 with good results. [facility] Medical History (Updated 04/05/24 @ 09:25 by Ky Galindo PA-C) Sleep apnea Arthritis Chronic neck and back pain On beta jamari at home CAD (coronary artery disease) Substance abuse HTN (hypertension) Surgical History (Updated 04/05/24 @ 08:11 by EL Osuna) Hx of CABG H/O spinal fusion Stented coronary artery Hx of endoscopy Hx of colonoscopy Family History Mother COPD (chronic obstructive pulmonary disease) Cancer Substance abuse Mental health disorder Father CAD (coronary artery disease) COPD (chronic obstructive pulmonary disease) Social History Household Members: Family Housing: House Are you a primary special needs caregiver to a significant other at home: No Do you presently have visiting nurse or other home services: No Alcohol intake: former Patient Tobacco Use Status: Former Tobacco user Tobacco use type: Cigarette Cigarette Packs Per Day: 1 Cigarettes Per Day: 20 Years Smoked: 20 e-Cigarette/Vaping Use: Never Used Second Hand Smoke Exposure: No Substance Use Type: Marijuana service: No Current occupational status: employed and disabled Current occupational exposures/hazards: No Cognitive needs: No Hearing needs: No Vision needs: No Review of Systems Const All systems reviewed & are unremarkable except as noted in HPI and below Musc Reports numbness (Lower and upper extremities ) and Reports tingling Neuro Reports numbness (Lower and upper extremities ), Reports restless legs, Reports tingling and Reports paresthesias (Lower and upper extremities.) Psych Reports difficulty concentrating Physical Exam Vital Signs: BMI result Body Mass Index 35.6 Const General: cooperative, comfortable and no acute distress Nutritional Appearance: obese Orientation/consciousness: patient oriented x3 HEENT Head: Yes normal to inspection Face and sinus: Yes normal facial exam and Yes face symmetric Mouth: tongue normal and other (Malampati score 2) Throat: Yes uvula midline Eyes General: appearance normal, both eyes and all related structures Pupils: Equal, round and reactive pupils present, Pupils normal by confrontation and Pupil accommodation reflex normal Neck Neck: Yes full ROM and Yes supple Resp Effort & Inspection: normal respiratory effort and able to speak in complete sentences Neuro General: patient oriented x3, gait normal, moves all extremities and Normal light touch and pain sensation Cranial nerves: Yes CN's II-XII intact bilaterally, Yes Facial sensation intact/muscles of mastication intact, Yes Equal, round and reactive pupils present, Yes Normal accommodation reflex present, Yes Nystagmus not present, Yes Normal facial strength present, Yes Midline tongue present, Yes Ability to bilaterally rotate head present (ROM Limited to the Left) and Yes Ability to bilaterally elevate shoulders present Cognition (Neuro): normal cognition Gait exam (Neuro): Normal gait present Motor exam (neuro): 5/5 motor strength present throughout and no tremor noted Deep tendon reflexes (DTR's): Right triceps reflex intensity grade: 2+, Left triceps reflex intensity grade: 2+, Rt Biceps (C5, C6): 2+, Left biceps reflex intensity grade: 2+, Right brachioradialis reflex intensity grade: 2+, Left brachioradialis reflex intensity grade: 2+, Right patellar reflex intensity grade: 3+ and Left patellar reflex intensity grade: 3+ Coordination: [id number] test normal Romberg Test: Negative Psych Appearance: grossly normal Affect: normal affect Attitude: cooperative Thought process: Normal thought process present Insight: Good insight present (Psych) Judgement: Good judgement present (Psych) Orientation What is the (year) (season) (date) (day) (month)?: year, season, date, day and month Where are we (state) (county) (town or city) (hospital) (floor)?: state, county, town or city, hospital/clinic and floor Registration Name of 3 unrelated objects clearly and slowly, then ask patient to repeat all 3 of them. (1st repeat determines score. Make sure they can repeat all three): object 1 and object 2 Attention & Calculation (CHOOSE ONE) Ask pt to begin with 100 & count backward by 7. Stop after 5 repeats. If pt cannot ask them to spell the word WORLD backward.: 93 Spell WORLD backwards (DLROW): 5 letters Recall Ask patient to repeat the 3 items from question #3.: object 1, object 2 and object 3 (forgot clock) Language Show patient a wristwatch & ask what it is. Repeat for pencil.: watch and pencil Ask the patient to repeat the phrase 'No ifs, ands, or buts' after you.: correct Ask the patient to 'take a piece of paper with their right hand' 'fold paper in half' 'place paper on floor': take paper in right hand, fold paper in half and place paper on floor Print the sentence 'CLOSE YOUR EYES' on a piece. If patient actually closes eyes then score.: followed written direction Give patient a blank piece of paper & ask to write a sentence. Score if it contains a noun & verb.: sentence contains subject and verb Score Score: 29 Assessment & Plan Assessment & Plan (1) Cognitive decline: Code(s): R41.89 - Other symptoms and signs involving cognitive functions and awareness Category: Medical (2) Numbness and tingling of both feet: Code(s): R20.0 - Anesthesia of skin; R20.2 - Paresthesia of skin Category: Medical Plan Bilateral numbness and pain of the feet and wrists- EMG /NCS to r/o neuropathy Ropinirole 1mg PO at Bedtime, to help with possible Restless legs MME - will monitor cognition Discussed about stress management, encouraged to focus on diet and exercise. He is working with a PT in Cardio Rehab currently, and walking daily. Orders: Orders NE electromyogram (EMG) 04/05/24 R20.0 - Anesthesia of skin, R20.2 - Paresthesia of skin, R29.898 - Other symptoms and signs involving the musculoskeletal system Medications: New ropinirole administer 1-3 hours before bedtime 1 mg PO BEDTIME 90 tabs 3RF R20.0 - Anesthesia of skin, R20.2 - Paresthesia of skin Coding Level of Care Code New Pt Level 4 (76891) Complex EM visit Add On G2211 Diagnoses Cognitive decline R41.89 Numbness and tingling of both feet R20.0; R20.2
== END 2024-04-05 09:04 | disposition home or self-care (01) ==
PROVIDERS: PCP Family Medicine; Visit Provider Physician Assistant Medical
DX: R41.89 Other symptoms and signs involving cognitive functions and awareness (principal); R20.0 Anesthesia of skin; R20.2 Paresthesia of skin
CPT/HCPCS: 99204; G2211

== ENCOUNTER → 2024-04-05 07:58 | Outpatient (BNVA) | payer MEDICARE, MEDICAID, SELFPAY | PROVIDERS: PCP Family Medicine; Visit Provider Psychiatry & Neurology Neurology | DX: R41.89 Other symptoms and signs involving cognitive functions and awareness (principal); R20.0 Anesthesia of skin; R20.2 Paresthesia of skin; R29.898 Other symptoms and signs involving the musculoskeletal system; Z95.1 Presence of aortocoronary bypass graft | CPT/HCPCS: 99202 ==

== ENCOUNTER 2024-04-14 10:07 | Outpatient (AMB) | payer MEDICARE, MEDICAID, SELFPAY ==
--- NOTE | 2024-04-14 10:09 | MHC.OFFVIS ---
Vital Signs 04/14/24 10:14 Height 5 ft 5 in Weight 215 lb 2 oz BMI 35.8 BP 120/72 Blood Pressure Location Rt brachial Position Sitting Pulse 60 Pulse Source Pulse Oximeter Pulse Oximetry (%) 98 Oxygen Delivery Method Room Air Intake Visit Reasons: Asthma Allergies No Known Allergies Allergy (Verified 04/14/24 10:19) HPI HPI Asthma: Details: David is a pleasant 58 year old male, former tobacco smoker with an approximate 10 pack year history, quit 20 years ago, and current everyday heavy marijuana smokery, asthma and environmental allergies. He was well controlled on symbicort however insurance no longer covering and was switched to Breo 100 mcg then increased to Breo 200 mcg due to suboptimal effect. We had discussed at the last visit that worsening dyspnea was likely related to cardiac etiologies. Since the last visit he underwent coronary artery bypass graft x3 with Dr. Veloz at [facility], developed atrial fibrillation s/p CABG now maintained on Eliquis. He has continues with cardiac rehab at [facility] and has been motivated to be more active. He notes walking 3-4 miles frequently without any respiratory symptoms. [facility] Medical History (Updated 04/05/24 @ 09:25 by Ky Galindo PA-C) Sleep apnea Arthritis Chronic neck and back pain On beta jamari at home CAD (coronary artery disease) Substance abuse HTN (hypertension) Surgical History (Updated 04/05/24 @ 08:11 by EL Osuna) Hx of CABG H/O spinal fusion Stented coronary artery Hx of endoscopy Hx of colonoscopy Family History Mother COPD (chronic obstructive pulmonary disease) Cancer Substance abuse Mental health disorder Father CAD (coronary artery disease) COPD (chronic obstructive pulmonary disease) Social History Household Members: Family Housing: House Are you a primary customer care associate to a significant other at home: No Do you presently have visiting nurse or other home services: No Alcohol intake: former Patient Tobacco Use Status: Former Tobacco user Tobacco use type: Cigarette Cigarette Packs Per Day: 1 Cigarettes Per Day: 20 Years Smoked: 20 e-Cigarette/Vaping Use: Never Used Second Hand Smoke Exposure: No Substance Use Type: Marijuana service: No Current occupational status: employed and disabled Current occupational exposures/hazards: No Cognitive needs: No Hearing needs: No Vision needs: No Review of Systems Const Denies chills, Denies excessive sweating, Denies fever(s), Denies headache(s) and Denies night sweats Eyes Denies dry eyes, Denies irritation and Denies itchy eyes ENT Reports Normal hearing present, Denies headache(s), Denies nasal congestion, Denies nasal discharge, Denies post nasal drip and Denies sore throat Card Denies chest pain, Denies chest pain at rest, Denies chest pain with activity, Denies claudication, Denies leg edema, Denies dyspnea, Denies dyspnea on exertion, Denies orthopnea and Denies paroxysmal nocturnal dyspnea Resp Denies chest congestion, Denies cough, Denies excessive phlegm production, Denies pain on inspiration, Denies pain with cough, Denies dyspnea, Denies dyspnea on exertion, Denies stridor and Denies wheezing Musc Denies myalgias Neuro Reports Normal hearing present and Denies headache(s) Endo Denies excessive sweating Librado/Lymph Denies lymphadenopathy Aller/Immun Denies itchy eyes, Denies seasonal rhinorrhea and Denies wheezing Physical Exam Vital Signs: Last Vital Signs Pulse 60 04/14/24 10:14 BP 120/72 04/14/24 10:14 Pulse Ox 98 04/14/24 10:14 Oxygen Delivery Method Room Air 04/14/24 10:14 BMI result Body Mass Index 35.8 Const General: cooperative, healthy appearing, comfortable, no acute distress, well developed and alert Nutritional Appearance: obese Orientation/consciousness: patient oriented x3 Limitations: no limitations HEENT Head: Yes normal to inspection, Yes normocephalic and Yes atraumatic Ears: hearing grossly normal bilaterally and external ears normal Eyes General: appearance normal, both eyes and all related structures Eyelids: Yes eyelids normal Sclerae: sclerae normal EOM: EOMs intact bilaterally Neck Neck: Yes normal visual inspection and Yes no lymphadenopathy Lymphatic: no lymphadenopathy noted Chest Chest palpation & inspection: normal inspection of the chest Resp Effort & Inspection: normal respiratory effort, able to speak in complete sentences, no audible wheezes, no cough, no stridor, not tachypneic, no tripod positioning and no use of accessory muscles Auscultation: clear to auscultation bilaterally Cardio Jugular venous distension: no JVD Rate: regular rate Rhythm: regular rhythm Skin Other: warm, dry General skin exam: no rashes or lesions noted Neuro General: patient oriented x3 Cranial nerves: Yes Normal hearing present Cognition (Neuro): normal cognition Gait exam (Neuro): Normal gait present Extrem General: Yes normal to inspection, Yes capillary refill normal, Yes no clubbing, cyanosis or edema and Yes no pedal edema Psych Appearance: grossly normal and well kempt Speech and movement: Normal speech and movement present and Clear speech present Affect: normal affect Attitude: cooperative Thought process: Normal thought process present Thought content: Normal thought content present Insight: Good insight present (Psych) Judgement: Good judgement present (Psych) Assessment & Plan Assessment & Plan (1) Asthma: Code(s): J45.909 - Unspecified asthma, uncomplicated Category: Medical (2) Multiple pulmonary nodules: Code(s): R91.8 - Other nonspecific abnormal finding of lung field Category: Medical (3) Environmental allergies: Code(s): Z91.09 - Other allergy status, other than to drugs and biological substances Category: Medical Plan David reports significant improvement in dyspnea since CABG, will decrease Breo back to 100 mcg. He is aware if symptoms are less controlled to call. Discussed smoking cessation. All questions were answered and patient is in agreement of plan. Will follow up in three months or sooner if needed. Medications: New fluticasone furoate-vilanterol 100-25 mcg/dose (Breo Ellipta) 1 inh inhalation DAILY 60 ea 6RF Coding Level of Care Code Est Pt Level 4 (50710) Diagnoses Asthma J45.909 Multiple pulmonary nodules R91.8 Environmental allergies Z91.09
[2024-04-14 10:14] VITALS: BP 120/72; PULSE 60; O2SAT 98; BMI 35.8
== END 2024-04-14 10:44 | disposition home or self-care (01) ==
PROVIDERS: PCP Family Medicine; Visit Provider Nurse Practitioner Family
DX: J45.909 Unspecified asthma, uncomplicated (principal); R91.8 Other nonspecific abnormal finding of lung field; Z91.09 Other allergy status, other than to drugs and biological substances
CPT/HCPCS: 99214

== ENCOUNTER → 2024-04-14 10:07 | Outpatient (BNVA) | payer MEDICARE, MEDICAID, SELFPAY | PROVIDERS: PCP Family Medicine; Visit Provider Nurse Practitioner Family | DX: J45.909 Unspecified asthma, uncomplicated (principal); R91.8 Other nonspecific abnormal finding of lung field; Z91.09 Other allergy status, other than to drugs and biological substances | CPT/HCPCS: 99212 ==

== ENCOUNTER 2024-05-05 14:52 | Outpatient (REF) | payer MEDICARE, MEDICAID, SELFPAY ==
--- NOTE | 2024-05-05 14:55 | EMG_ITS ---
Chief complaint: Complaining of hand numbness that is separate from feet numbness. Hand numbness is at night or depending on position. He has chronic neck pain. Leg numbness, especially right side, worsened since CABG and grafting from right leg in December. History of cervical and spine fusion. Reason for referral: Evaluate for neuropathy Referred by: Ky Galindo Procedure done: Bilateral upper lower extremity NCS/EMG Precautions and/or limitations: Eliquis Cervical and lumbar surgeries The limb temperature was monitored continuously and remained between 32-36 degrees C during the performance of the NCS. Nerve Conduction Studies Anti Sensory Summary Table ?Stim Site NR Onset (ms) Norm Onset (ms) Peak (ms) Norm Peak (ms) O-P Amp (?V) Norm O-P Amp Site1 Site2 Delta-0 (ms) Dist (cm) Mt (m/s) Norm Mt (m/s) Left Median Anti Sensory (2nd Digit) Wrist NR <3.6 >10 Wrist 2nd Digit 14.0 Right Median Anti Sensory (2nd Digit) Wrist NR <3.6 >10 Wrist 2nd Digit 14.0 Left Sural Anti Sensory (Lat Mall) Calf ? 1.0 3.8 <4.0 11.5 >5.0 Calf Lat Mall 1.0 14.0 140 Right Sural Anti Sensory (Lat Mall) Calf ? 2.0 3.8 <4.0 1.1 >5.0 Calf Lat Mall 2.0 14.0 70 Left Ulnar Anti Sensory (5th Digit) Wrist ? 1.1 2.9 <3.7 0.3 >15.0 Wrist 5th Digit 1.1 14.0 127 Right Ulnar Anti Sensory (5th Digit) Wrist ? 2.3 3.0 <3.7 14.3 >15.0 Wrist 5th Digit 2.3 14.0 61 Motor Summary Table ?Stim Site NR Onset (ms) Norm Onset (ms) O-P Amp (mV) Norm O-P Amp iAmp (mV) Amp (1st) (%) Site1 Site2 Delta-0 (ms) Dist (cm) Mt (m/s) Norm Mt (m/s) Left Median Motor (Abd Poll Brev) Wrist ? 10.1 <3.9 4.8 >4.5 6.6 100.0 Elbow Wrist 6.0 24.0 40 >45 Elbow ? 16.1 3.1 3.9 64.6 Right Median Motor (Abd Poll Brev) Wrist NR <3.9 >4.5 Elbow Wrist 0.0 >45 Elbow NR Left Peroneal Motor (Ext Dig Brev) Ankle NR <4.0 >2.5 Ankle Ext Dig Brev 0.0 B Fib NR B Fib Ankle 0.0 >40 Poplt NR Poplt B Fib 0.0 >40 Right Peroneal Motor (Ext Dig Brev) Ankle ? 5.6 <4.0 0.6 >2.5 0.5 100.0 Ankle Ext Dig Brev 5.6 0.0 B Fib ? 13.8 0.6 0.6 100.0 B Fib Ankle 8.2 35.0 43 >40 Poplt ? 15.4 0.6 0.7 100.0 Poplt B Fib 1.6 5.0 31 >40 Left Peroneal TA Motor (Tib Ant) Fib Head ? 3.8 <4.2 2.9 2.9 100.0 Fib Head Tib Ant 3.8 0.0 Poplit ? 4.5 <5.7 2.8 2.7 96.6 Poplit Fib Head 0.7 4.0 57 >40.5 Left Tibial Motor (Abd Palomares Brev) Ankle ? 3.7 <5 15.8 >2.5 19.5 100.0 Ankle Abd Palomares Brev 3.7 0.0 Knee ? 13.5 10.1 11.8 63.9 Knee Ankle 9.8 39.0 40 >40 Right Tibial Motor (Abd Palomares Brev) Ankle ? 3.1 <5 7.1 >2.5 10.8 100.0 Ankle Abd Palomares Brev 3.1 0.0 Knee ? 13.0 6.7 9.8 94.4 Knee Ankle 9.9 43.0 43 >40 Left Ulnar Motor (Abd Dig Minimi) Wrist ? 2.9 <3.0 5.2 >5 6.2 100.0 B Elbow Wrist 3.6 20.0 56 >45 B Elbow ? 6.5 7.2 8.5 138.5 A Elbow B Elbow 1.9 10.0 53 >45 A Elbow ? 8.4 7.2 8.6 138.5 Right Ulnar Motor (Abd Dig Minimi) Wrist ? 2.7 <3.0 8.7 >5 10.0 100.0 B Elbow Wrist 4.2 21.0 50 >45 B Elbow ? 6.9 8.3 9.5 95.4 A Elbow B Elbow 2.2 10.0 45 >45 A Elbow ? 9.1 7.4 8.6 85.1 EMG ?Side Muscle Nerve Root Ins Act Fibs Psw Amp Dur Poly Recrt Int Pat Comment Right AbdHallucis MedPlantar S1-2 Nml Nml Nml Nml Nml 0 Nml Complete Right AntTibialis Dp Br Peron L4-5 Nml Nml Nml Nml Nml 0 Nml Complete Right PostTibialis Tibial L5, S1 Nml Nml Nml Nml Nml 0 Nml Complete Right MedGastroc Tibial S1-2 Nml Nml Nml Nml Nml 0 Nml Complete Right VastusMed Femoral L2-4 Nml Nml Nml Nml Nml 0 Nml Complete Left AbdHallucis MedPlantar S1-2 Nml Nml Nml Nml Nml 0 Nml Complete Left AntTibialis Dp Br Peron L4-5 Nml Nml Nml Incr Incr 0 Nml Complete Left PostTibialis Tibial L5, S1 Nml Nml Nml Nml Nml 0 Nml Complete Left MedGastroc Tibial S1-2 Nml Nml Nml Nml Nml 0 Nml Complete Left VastusMed Femoral L2-4 Nml Nml Nml Nml Nml 0 Nml Complete FINDINGS: Right median motor nerve showed absent response. Left median motor nerve showed prolonged distal latency, normal amplitude and slow conduction velocity. Bilateral median sensory nerve showed absent response. Right peroneal motor nerve showed very small amplitude/almost absent. Slowing of conduction velocity across the fibular neck. Left peroneal motor nerve, when recording EDB, showed absent response. When recording TA muscle, amplitudes were low but there was no conduction slowing across fibular neck. All other nerves tested were within normal. Concentric needle EMG was performed in selected muscles of the bilateral lower extremities and lumbar paraspinals. Study revealed signs of electric abnormalities as shown in the table above. Left tibialis anterior showed increased duration and amplitude. IMPRESSION: 1. This is an abnormal study. 2. There is electrodiagnostic evidence for right severe and left moderate-severe median neuropathy at the wrist, consistent with Carpal Tunnel Syndrome. 3. There is electrodiagnostic evidence for right peroneal neuropathy at the fibular neck. 4. There are electrodiagnostic findings suggestive of either a severe left peroneal neuropathy or left L5-S1 radiculopathy. 5. There is no electrodiagnostic evidence for ulnar neuropathy, brachial plexopathy, cervical radiculopathy. tibial neuropathy. lumbosacral plexopathy, or peripheral neuropathy. Thank you for your kind referral. Karis Loya MD, ORIANA Board Certified, [place] Board of Physical Medicine and Rehabilitation (ABPMR) Board Certified, [place] Board of Electrodiagnostic Medicine (ABEM) CODIN 55213 x 2 MTDD
== END 2024-05-05 14:53 | disposition home or self-care (01) ==
LOC: HO.NEURO 14:52
PROVIDERS: PCP Family Medicine; Visit Provider Physician Assistant Medical
DX: R20.0 Anesthesia of skin (principal); R20.2 Paresthesia of skin; R29.898 Other symptoms and signs involving the musculoskeletal system
CPT/HCPCS: 95886; 95913

== ENCOUNTER → 2024-05-05 14:55 | Outpatient (BNV) | payer MEDICARE, MEDICAID, SELFPAY | PROVIDERS: PCP Family Medicine; Visit Provider Physical Medicine & Rehabilitation | DX: G56.03 Carpal tunnel syndrome, bilateral upper limbs (principal); G57.33 Lesion of lateral popliteal nerve, bilateral lower limbs | CPT/HCPCS: 95886; 95913 ==

== ENCOUNTER 2024-05-17 14:23 | Outpatient (AMB) | payer MEDICARE, MEDICAID, SELFPAY ==
--- NOTE | 2024-05-17 14:30 | MHC.PC.OV ---
Vital Signs 05/17/24 14:36 Height 5 ft 5 in Weight 216 lb 6 oz BMI 36.0 BP 130/70 Blood Pressure Location Rt brachial Position Sitting Respiration 14 Pulse 78 Pulse Source Palpation Intake Visit Reasons: f/u diabetes?and?chronic conditions Intake Note: f/u for DM AND coronary artery bypass Allergies No Known Allergies Allergy (Verified 05/17/24 14:34) Medication List - Last Reconciled 05/17/24 by Ivan Ash MD apixaban (Eliquis) 5 mg PO BID aspirin (St Von Aspirin) 81 mg PO DAILY blood sugar diagnostic (FreeStyle Lite Strips) DX: E11.9, test blood sugar once a day, 90 days blood-glucose meter (FreeStyle Lite Meter kit) DX: E11.9, test blood sugar once a day, duration 999 days buspirone 5 mg PO DAILY clonazepam 1.5 mg PO BEDTIME cyclobenzaprine 10 mg PO BEDTIME diltiazem HCl ER 180 mg PO DAILY ezetimibe 10 mg PO DAILY fluticasone furoate-vilanterol 100-25 mcg/dose (Breo Ellipta) 1 inh inhalation DAILY fluticasone furoate-vilanterol 200-25 mcg/dose (Breo Ellipta) 1 inh inhalation DAILY gabapentin 600 mg PO TID glipizide ER 5 mg PO QAM 90 days lancets (FreeStyle Lancets) As directed levalbuterol tartrate 45 mcg/actuation 1 puff inhalation Q4-6H PRN metformin 500 mg PO BID 90 days metoprolol succinate ER 50 mg PO BID oxycodone-acetaminophen 10-325 mg 1 tab PO TID PRN pantoprazole 40 mg PO QPM 30 days ropinirole 1 mg PO BEDTIME rosuvastatin 40 mg PO ONCE Tobacco use date assessed: 03/09/24 Dental Screening Dental Screen Date: 03/09/24 HPI f/u diabetes?and?chronic conditions HPI Details 58 y/o male presents to f/u diabetes, chronic conditions. Recent A1c in February was 5.3%. He is on metformin 500mg b.i.d. Has complaints of ongoing fatigue. [facility] Medical History (Updated 05/17/24 @ 15:10 by Yan Gao) Sleep apnea Arthritis Chronic neck and back pain On beta jamari at home CAD (coronary artery disease) Substance abuse HTN (hypertension) Surgical History (Updated 04/05/24 @ 08:11 by EL Osuna) Hx of CABG H/O spinal fusion Stented coronary artery Hx of endoscopy Hx of colonoscopy Family History Mother COPD (chronic obstructive pulmonary disease) Cancer Substance abuse Mental health disorder Father CAD (coronary artery disease) COPD (chronic obstructive pulmonary disease) Social History Household Members: Family Housing: House Are you a primary ocular care aide to a significant other at home: No Do you presently have visiting nurse or other home services: No Alcohol intake: former Patient Tobacco Use Status: Former Tobacco user Tobacco use type: Cigarette Cigarette Packs Per Day: 1 Cigarettes Per Day: 20 Years Smoked: 20 e-Cigarette/Vaping Use: Never Used Second Hand Smoke Exposure: No Substance Use Type: Marijuana service: No Current occupational status: employed and disabled Current occupational exposures/hazards: No Cognitive needs: No Hearing needs: No Vision needs: No Questionnaire Thrive Questionnaire Date Thrive assessed: 03/15/24 I am a: Patient What is your living situation today?: I have a steady place to live Within the past 12 months, did the food you bought not last and you didn't have the money to get more?: Often true Within the past 12 months, did you worry whether your food would run out before you got money to buy more?: Often true Do you have trouble paying for medicines?: No Do you have trouble getting transportation to medical appointments?: No Do you have trouble paying your heating and electricity bill?: Yes Do you have trouble taking care of your child, family member or friend?: No Do you have trouble with day-to-day activities such as bathing, preparing meals, shopping, managing finances, etc.?: Yes Are you currently unemployed and looking for a job?: No Are you interested in more education?: No THRIVE Score: 3 MCKENNA-7 AMB Questionnaire MCKENNA-7 Date MCKENNA - 7 assessed: 06/11/23 Source: Developed by Drs. Junior Richards, Vania Vázquez, Fred Boudreaux and colleagues, with an educational zacarias from [employer]. Physical exam (Primary Care) Vital Signs: Last Vital Signs Pulse 78 05/17/24 14:36 Resp 14 05/17/24 14:36 BP 130/70 05/17/24 14:36 BMI result Body Mass Index 36.0 Tobacco/Smoking Status: Tobacco use Status Tobacco use date assessed 03/09/24 05/17/24 14:30 Patient Tobacco Use Status Former Tobacco user 05/17/24 14:30 Tobacco use type Cigarette 05/17/24 14:30 e-Cigarette/Vaping Use Never Used 05/17/24 14:30 Thrive Assessment: Date of Thrive Assessment Date Thrive assessed 03/15/24 05/17/24 14:30 Coding Level of Care Code Est Pt Level 4 (63834) Diagnoses Diabetes E11.9 HTN (hypertension) I10 CAD (coronary artery disease) I25.10 Immunization counseling Z71.85 Fatigue R53.83 Assessment & Plan Assessment & Plan (1) Diabetes: Code(s): E11.9 - Type 2 diabetes mellitus without complications Category: Medical Plan: A1c?2?months?ago?5.3%.??Good?control.??Goal?is?less?than?7% However,?patient?is?hoping?to?wean?off?of?some?of?his?medications?and?has?been?working?at?better?control?at?home. We?will?follow-up?next?month?as?he?will?be?due?for?an?A1c?again. (2) HTN (hypertension): Code(s): I10 - Essential (primary) hypertension Category: Medical Plan: Blood?pressure?is fairly?well?controlled.??Goal?is?less?than?130/80 Continue?current?regimen (3) CAD (coronary artery disease): Code(s): I25.10 - Atherosclerotic heart disease of [place] coronary artery without angina pectoris Category: Medical Plan: Stable (4) Immunization counseling: Code(s): Z71.85 - Encounter for immunization safety counseling Category: Medical Plan: Recent?COVID?immunization?3?months?ago. However,?patient?is?not?feeling?well?today?and?is?fatigued. Checking?COVID/flu/RSV-see?below?well (5) Fatigue: Code(s): R53.83 - Other fatigue Category: Medical Plan: Patient?notes?significant?fatigue?and?not?feeling?well/malaise Check?labs?including?CBC?and?BMP?thyroid May?simply?be?a?viral?illness?though?patient?looks?rather?pale?today - as?above,?checking?CBC Advised?plenty?of?rest?and?hydration Orders: Orders Complete Blood Count Auto Diff Today R53.83 - Other fatigue, Z00.00 - Encounter for general adult medical examination without abnormal findings Basic Metabolic Panel Today R53.83 - Other fatigue, Z00.00 - Encounter for general adult medical examination without abnormal findings TSH reflex Free T4 Today R53.83 - Other fatigue, Z00.00 - Encounter for general adult medical examination without abnormal findings
[2024-05-17 14:36] VITALS: BP 130/70; PULSE 78; RESP 14; BMI 36.0
== END 2024-05-17 15:14 | disposition home or self-care (01) ==
PROVIDERS: PCP Family Medicine; Visit Provider Family Medicine
DX: E11.9 Type 2 diabetes mellitus without complications (principal); I10 Essential (primary) hypertension; I25.10 Atherosclerotic heart disease of native coronary artery without angina pectoris; Z71.85 Encounter for immunization safety counseling; R53.83 Other fatigue

== ENCOUNTER 2024-05-17 14:23 | Outpatient (REF) | payer MEDICARE, MEDICAID, SELFPAY ==
[2024-05-17 18:52] LABS: Influenza A PCR NEGATIVE (Negative); Influenza B PCR NEGATIVE (Negative); Resp Syncy Virus RNA Qual PCR NEGATIVE (Negative); SARS COV2 PCR INHOUSE NEGATIVE (Negative)
== END 2024-05-17 14:24 | disposition home or self-care (01) ==
LOC: HO.LAB 14:23
PROVIDERS: PCP Family Medicine; Visit Provider Family Medicine
DX: E11.9 Type 2 diabetes mellitus without complications (principal); I10 Essential (primary) hypertension; I25.10 Atherosclerotic heart disease of native coronary artery without angina pectoris; R53.83 Other fatigue; Z71.85 Encounter for immunization safety counseling
CPT/HCPCS: 0241U; 99212

== ENCOUNTER 2024-07-14 10:10 | Outpatient (AMB) | payer MEDICARE, MEDICAID, SELFPAY ==
--- NOTE | 2024-07-14 09:58 | MHC.OFFVIS ---
Vital Signs 07/14/24 10:12 Height 5 ft 5 in Weight 213 lb BMI 35.4 BP 122/60 Blood Pressure Location Lt brachial Position Sitting Pulse 67 Pulse Source Pulse Oximeter Pulse Oximetry (%) 96 Oxygen Delivery Method Room Air Intake Visit Reasons: Asthma Station Agent Required: No License And Permit Specialist: License And Permit Specialist offered & declined Accompanied by: Self / Same As Patient Allergies No Known Allergies Allergy (Verified 07/14/24 10:20) Medication List - Last Reconciled 07/14/24 by Kourtney Carter LPN apixaban (Eliquis) 5 mg PO BID aspirin (St Von Aspirin) 81 mg PO DAILY blood sugar diagnostic (FreeStyle Lite Strips) DX: E11.9, test blood sugar once a day, 90 days blood-glucose meter (FreeStyle Lite Meter kit) DX: E11.9, test blood sugar once a day, duration 999 days buspirone 5 mg PO DAILY cetirizine (Zyrtec) 10 mg PO DAILY PRN clonazepam 1.5 mg PO BEDTIME cyclobenzaprine 10 mg PO BEDTIME diltiazem HCl ER 180 mg PO DAILY ezetimibe 10 mg PO DAILY fluticasone furoate-vilanterol 100-25 mcg/dose (Breo Ellipta) 1 inh inhalation DAILY gabapentin 600 mg PO TID glipizide ER 5 mg PO QAM 90 days lancets (FreeStyle Lancets) As directed levalbuterol tartrate 45 mcg/actuation 1 puff inhalation Q4-6H PRN metformin 500 mg PO BID 90 days metoprolol succinate ER 50 mg PO BID oxycodone-acetaminophen 10-325 mg 1 tab PO TID PRN pantoprazole 40 mg PO QPM 30 days ropinirole 1 mg PO BEDTIME rosuvastatin 40 mg PO ONCE HPI HPI Asthma: Details: David is a pleasant 59 year old male, former tobacco smoker with an approximate 10 pack year history, quit 20 years ago, and current everyday heavy marijuana smokery, asthma, chronic allergic rhinitis, atrial fibrillation on Eliquis and s/p CABG x 3. Since the last visit, he has completed cardiac rehab at [facility] and continues to work towards being more active. He is engaged in daily exercise, now attending the gym without any respiratory symptoms. He has been using Breo 100 mcg, requiring levalbuterol MDI infrequently. He denies any visits to urgent care or hospitalizations related to respiratory distress since the last visit. [facility] Medical History (Updated 05/17/24 @ 15:10 by Yan Gao) Sleep apnea Arthritis Chronic neck and back pain On beta jamari at home CAD (coronary artery disease) Substance abuse HTN (hypertension) Surgical History (Updated 04/05/24 @ 08:11 by EL Osuna) Hx of CABG H/O spinal fusion Stented coronary artery Hx of endoscopy Hx of colonoscopy Family History Mother COPD (chronic obstructive pulmonary disease) Cancer Substance abuse Mental health disorder Father CAD (coronary artery disease) COPD (chronic obstructive pulmonary disease) Social History Household Members: Family Housing: House Are you a primary property caretaker to a significant other at home: No Do you presently have visiting nurse or other home services: No Alcohol intake: former Patient Tobacco Use Status: Former Tobacco user Tobacco use type: Cigarette Cigarette Packs Per Day: 1 Cigarettes Per Day: 20 Years Smoked: 20 e-Cigarette/Vaping Use: Never Used Second Hand Smoke Exposure: No Substance Use Type: Marijuana service: No Current occupational status: employed and disabled Current occupational exposures/hazards: No Cognitive needs: No Hearing needs: No Vision needs: No Review of Systems Const Denies chills, Denies excessive sweating, Denies fever(s), Denies headache(s) and Denies night sweats Eyes Denies dry eyes, Denies irritation and Denies itchy eyes ENT Reports Normal hearing present, Denies headache(s), Denies nasal congestion, Denies nasal discharge, Denies post nasal drip and Denies sore throat Card Denies chest pain, Denies chest pain at rest, Denies chest pain with activity, Denies claudication, Denies leg edema, Denies dyspnea, Denies dyspnea on exertion, Denies orthopnea and Denies paroxysmal nocturnal dyspnea Resp Denies chest congestion, Denies cough, Denies excessive phlegm production, Denies pain on inspiration, Denies pain with cough, Denies dyspnea, Denies dyspnea on exertion, Denies stridor and Denies wheezing Musc Denies myalgias Neuro Reports Normal hearing present and Denies headache(s) Endo Denies excessive sweating Librado/Lymph Denies lymphadenopathy Aller/Immun Denies itchy eyes, Denies seasonal rhinorrhea and Denies wheezing Physical Exam Vital Signs: Last Vital Signs Pulse 67 07/14/24 10:12 BP 122/60 07/14/24 10:12 Pulse Ox 96 07/14/24 10:12 Oxygen Delivery Method Room Air 07/14/24 10:12 BMI result Body Mass Index 35.4 Const General: cooperative, healthy appearing, comfortable, no acute distress, well developed and alert Nutritional Appearance: obese Orientation/consciousness: patient oriented x3 Limitations: no limitations HEENT Head: Yes normal to inspection, Yes normocephalic and Yes atraumatic Ears: hearing grossly normal bilaterally and external ears normal Eyes General: appearance normal, both eyes and all related structures Eyelids: Yes eyelids normal Sclerae: sclerae normal EOM: EOMs intact bilaterally Neck Neck: Yes normal visual inspection and Yes no lymphadenopathy Lymphatic: no lymphadenopathy noted Chest Chest palpation & inspection: normal inspection of the chest Resp Effort & Inspection: normal respiratory effort, able to speak in complete sentences, no audible wheezes, no cough, no stridor, not tachypneic, no tripod positioning and no use of accessory muscles Auscultation: clear to auscultation bilaterally Cardio Jugular venous distension: no JVD Rate: regular rate Rhythm: regular rhythm Skin Other: warm, dry General skin exam: no rashes or lesions noted Neuro General: patient oriented x3 Cranial nerves: Yes Normal hearing present Cognition (Neuro): normal cognition Gait exam (Neuro): Normal gait present Extrem General: Yes normal to inspection, Yes capillary refill normal, Yes no clubbing, cyanosis or edema and Yes no pedal edema Psych Appearance: grossly normal and well kempt Speech and movement: Normal speech and movement present and Clear speech present Affect: normal affect Attitude: cooperative Thought process: Normal thought process present Thought content: Normal thought content present Insight: Good insight present (Psych) Judgement: Good judgement present (Psych) Results Reviewed Results Reviewed: [address] [address] [address] Scan Report Signed Patient: David Lindsey MR#: [id number] : 1965 Acct:[id number] Age/Sex: 57 / M ADM Date: 01/06/23 Loc: HO.CT Attending Dr: Ashleigh Horta NP Ordering Physician: Ashleigh Horta NP Date of Service: 01/06/23 Procedure(s): CT chest wo IV con Accession Number(s): [id number] cc: Ashleigh Horta NP~ EXAMINATION: CT CHEST WITHOUT CONTRAST CLINICAL INFORMATION: Dyspnea COMPARISON: 11/29/2022 chest radiograph TECHNIQUE: Multidetector volumetric CT imaging of the chest was done. Axial MIP volume rendering provided. Sagittal and coronal reformatted images were obtained. This CT examination was performed using dose optimization techniques as appropriate, variously including the following: *Automated exposure control *Adjustment of mA and/or kV according to patient size (this includes techniques or standardized protocols for targeted exams where dose is matched to indication/reason for exam; i.e. extremities or head) *Use of iterative reconstruction technique DLP: 245 mGy-cm FINDINGS: AGENCY SALES REPRESENTATIVE: Thoracic spurring LUNGS: Trachea and bronchi are patent. NODULES: RUL: 2 mm, 3:16, 3 mm 3:17 RML: 3 mm subpleural, 3:28 and 3:33. ALESSANDRO: 3 mm, 3:23. PLEURA: Left fissural lymph node, 3:23. MEDIASTINUM: Thyroid is unremarkable. No pathologic lymphadenopathy. Heart size within normal limits. No pericardial effusion. Nonaneurysmal aorta with atherosclerotic calcifications. Nondilated pulmonary arteries. CORONARY ARTERY CALCIFICATION: Severe PLEURA: There is no pleural effusion. No pleural mass or thickening. AXILLA: No lymphadenopathy. UPPER ABDOMEN: Small gallstone. OSSEOUS STRUCTURES: Partial visualization of T1 surgical hardware. Degenerative changes. CT/CT chest wo IV con IMPRESSION: Multiple pulmonary nodules, none larger than 3 mm. Per Fleischner criteria, in low-risk patient, no further follow-up. In unknown or high risk patients, optional CT at 12 months. Stable at 12 months, no further follow-up. Cholelithiasis. Dictated By: Yanelis Jurado MD Signed By: <Electronically signed by Yanelis Jurado MD in OV> 01/07/23 1546 DD/ 1523 TD/TT: Brine Supervisor: Assessment & Plan Assessment & Plan (1) Asthma: Code(s): J45.909 - Unspecified asthma, uncomplicated Category: Medical (2) Multiple pulmonary nodules: Code(s): R91.8 - Other nonspecific abnormal finding of lung field Category: Medical (3) Environmental allergies: Code(s): Z91.09 - Other allergy status, other than to drugs and biological substances Category: Medical Plan David reports excellent control of respiratory symptoms on Breo, advised to continue. Will enter refills. Will repeat chest CT to assess for stability of scattered pulmonary nodules. Prior chest CT order placed for 12/2023 however never performed. All questions were answered and patient is in agreement of plan. Will follow up in 6 months or sooner if needed. Orders: Orders CT chest wo IV con Today R91.8 - Other nonspecific abnormal finding of lung field Medications: Refilled fluticasone furoate-vilanterol 100-25 mcg/dose (Breo Ellipta) 1 inh inhalation DAILY 60 ea 6RF Coding Level of Care Code Est Pt Level 4 (72721) Diagnoses Asthma J45.909 Multiple pulmonary nodules R91.8 Environmental allergies Z91.09
[2024-07-14 10:12] VITALS: BP 122/60; PULSE 67; O2SAT 96; BMI 35.4
--- OUTSIDE RECORDS SUMMARY | 2024-07-14 12:19 | XMS_ITS | Encounter Summary ---
Author Organization [facility] Address [address] [place] [address] Care Team Providers Care Contact Lens Manufacturer Name Role Phone Geo Herbert MD Primary Care Provider [phone] Ivan Ash MD Primary Care Provider Unav ailable Encounter Details Date Type Department Care Team Description 08/01/2016 [facility] Medical Records [address] [place] [address] Michel Juarez MD Social History Tobacco Use Types Packs/Day Years Used Date Smoking Tobacco: Former Smokeless Tobacco: Former Quit: 03/31/1995 Comments:10 years x 1pp = 10 pack years Alcohol Use Standard Drinks/Week Comments No 0 (1 standard drink = 0.6 oz pur e alcohol) sober since 1987 Sex Assigned at Date Recorded Not on file documented as of this encounter Plan of Treatment Not on file documented as of this encounter Visit Diagnoses Not on filedocumented in this encounter Care Teams Contact Lens Manufacturer Relationship Specialty Start Date End Date Geo Herbert MD [address] [place], [place] [phone] PCP - General Internal Medicine 03/10/15 11/06/21 Ivan Ash MD [address] [place] [address] PCP - General Family Practice 11/07/21 documented as of this encounter
--- OUTSIDE RECORDS SUMMARY | 2024-07-14 12:19 | XMS_ITS | Encounter Summary ---
Author Organization [facility] Address [address] [place] [address] Care Team Providers Care Grape Crusher Name Role Phone Geo Herbert MD Primary Care Provider [phone] Ivan Ash MD Primary Care Provider Unav ailable Encounter Details Date Type Department Care Team Description 04/04/2015 Release of Information Medical Records [address] [place] [address] Abstract, Provider Social History Tobacco Use Types Packs/Day Years [...] on filedocumented in this encounter Care Teams Grape Crusher Relationship Specialty Start Date End Date Geo Herbert MD [address] [place] [address] [phone] PCP - General Internal Medicine 03/10/15 11/06/21 Ivan Ash MD [address] [place], [place] [phone] PCP - General Family Practice 11/07/21 documented as of this encounter
--- OUTSIDE RECORDS SUMMARY | 2024-07-14 12:19 | XMS_ITS | Encounter Summary ---
Author Organization [facility] Address [address] [place] [address] Care Team Providers Care Wood Tile Installation Helper Name Role Phone Geo Herbert MD Primary Care Provider [phone] Ivan Ash MD Primary Care Provider Unav ailable Encounter Details Date Type Department Care Team Description 08/02/2016 [facility] Medical Records [address] [place] [address] Abstract, Provider Social History Tobacco Use Types [...] on filedocumented in this encounter Care Teams Wood Tile Installation Helper Relationship Specialty Start Date End Date Geo Herbert MD [address] [place] [address] [id number] PCP - General Internal Medicine 03/10/15 11/06/21 Ivan Ash MD [address] [place] [id number] PCP - General Family Practice 11/07/21 documented as of this encounter
--- OUTSIDE RECORDS SUMMARY | 2024-07-14 12:19 | XMS_ITS | Encounter Summary ---
Author Organization [facility] Address [address] [place] [address] Care Team Providers Care Demonstrator Sewing Techniques Name Role Phone Geo Herbert MD Primary Care Provider [phone] Ivan Ash MD Primary Care Provider Unav ailable Encounter Details Date Type Department Care Team Description 01/25/2016 Release of Information Medical Records [address] [place] [address] Abstract, Provider Social History Tobacco Use Types [...] on filedocumented in this encounter Care Teams Demonstrator Sewing Techniques Relationship Specialty Start Date End Date Geo Herbert MD [address] [place] [address] [phone] PCP - General Internal Medicine 03/10/15 11/06/21 Ivan Ash MD [address] [place], [place] [phone] PCP - General Family Practice 11/07/21 documented as of this encounter
--- OUTSIDE RECORDS SUMMARY | 2024-07-14 12:19 | XMS_ITS | Encounter Summary ---
Author Organization [facility] Address [address] [place] [address] Care Team Providers Care Neuroscientist Name Role Phone Geo Herbert MD Primary Care Provider [phone] Ivan Ash MD Primary Care Provider Unav ailable Encounter Details Date Type Department Care Team Description 03/26/2016 [facility] Medical Records [address] [place] [address] Michel Juarez MD Social History Tobacco Use [...] on filedocumented in this encounter Care Teams Neuroscientist Relationship Specialty Start Date End Date Geo Herbert MD [address] [place], [place] [phone] PCP - General Internal Medicine 03/10/15 11/06/21 Ivan Ash MD [address] [place] [address] PCP - General Family Practice 11/07/21 documented as of this encounter
--- OUTSIDE RECORDS SUMMARY | 2024-07-14 12:19 | XMS_ITS | Encounter Summary ---
Author Organization [facility] Address [address] [place] [address] Care Team Providers Care News Video Editor Name Role Phone Geo Herbert MD Primary Care Provider [phone] Ivan Ash MD Primary Care Provider Unav ailable Encounter Details Date Type Department Care Team Description 08/26/2016 Billing Checker Report Medical Records [address] [place] [address] Abstract, Provider Social History Tobacco Use Types [...] on filedocumented in this encounter Care Teams News Video Editor Relationship Specialty Start Date End Date Geo Herbert MD [address] [place] [address] [phone] PCP - General Internal Medicine 03/10/15 11/06/21 Ivan Ash MD [address] [place] [id number] PCP - General Family Practice 11/07/21 documented as of this encounter
--- OUTSIDE RECORDS SUMMARY | 2024-07-14 12:19 | XMS_ITS | Encounter Summary ---
Author Organization [facility] Address [address] [place] [address] Care Team Providers Care Caddy Master Name Role Phone Geo Herbert MD Primary Care Provider [phone] Ivan Ash MD Primary Care Provider Unav ailable Encounter Details Date Type Department Care Team Description 01/18/2016 Neonatologist Report Medical Records [address] [place] [id number] Mauro Clarke PA-C Social History Tobacco Use Types Packs/Day Years [...] on filedocumented in this encounter Care Teams Caddy Master Relationship Specialty Start Date End Date Geo Herbert MD [address] [place] [address] [phone] PCP - General Internal Medicine 03/10/15 11/06/21 Ivna Ash MD [address] [place] [id number] PCP - General Family Practice 11/07/21 documented as of this encounter
--- OUTSIDE RECORDS SUMMARY | 2024-07-14 12:19 | XMS_ITS | Encounter Summary ---
Author Organization [facility] Address [address] [place] [address] Care Team Providers Care Business Analytics Manager Name Role Phone Geo Herbert MD Primary Care Provider [phone] Ivan Ash MD Primary Care Provider Unav ailable Encounter Details Date Type Department Care Team Description 03/27/2016 [facility] Medical Records [address] [place] [address] Michel Juarez MD Social History Tobacco Use [...] on filedocumented in this encounter Care Teams Business Analytics Manager Relationship Specialty Start Date End Date Geo Herbert MD [address] [place], [place] [phone] PCP - General Internal Medicine 03/10/15 11/06/21 Ivan Ash MD [address] [place] [address] PCP - General Family Practice 11/07/21 documented as of this encounter
== END 2024-07-14 10:43 | disposition home or self-care (01) ==
PROVIDERS: PCP Family Medicine; Visit Provider Nurse Practitioner Family
DX: J45.909 Unspecified asthma, uncomplicated (principal); R91.8 Other nonspecific abnormal finding of lung field; Z91.09 Other allergy status, other than to drugs and biological substances
CPT/HCPCS: 99214

== ENCOUNTER → 2024-07-14 10:10 | Outpatient (BNVA) | payer MEDICARE, MEDICAID, SELFPAY | PROVIDERS: PCP Family Medicine; Visit Provider Nurse Practitioner Family | DX: J45.909 Unspecified asthma, uncomplicated (principal); R91.8 Other nonspecific abnormal finding of lung field; Z91.09 Other allergy status, other than to drugs and biological substances; Z87.891 Personal history of nicotine dependence | CPT/HCPCS: 99212 ==

== ENCOUNTER 2024-09-17 11:55 | Outpatient (AMB) | payer MEDICARE, MEDICAID, SELFPAY ==
[2024-09-17 12:55] VITALS: BP 110/60; PULSE 63; RESP 14; TEMP 36.5; O2SAT 96; BMI 36.1
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
== END 2024-09-17 13:22 | disposition home or self-care (01) ==
LOC: HO.HMCFM 11:56
PROVIDERS: PCP Family Medicine; Visit Provider Family Medicine
DX: E11.9 Type 2 diabetes mellitus without complications (principal); R20.0 Anesthesia of skin; R20.2 Paresthesia of skin; I10 Essential (primary) hypertension; I25.10 Atherosclerotic heart disease of native coronary artery without angina pectoris

== ENCOUNTER 2024-09-17 13:53 | Outpatient (REF) | payer MEDICARE, MEDICAID, SELFPAY ==
--- OUTSIDE RECORDS SUMMARY | 2024-09-17 14:12 | XMS_ITS | Encounter Summary ---
Author Organization [facility] Address [address] [place] [address] Care Team Providers Care Pipeline Superintendent Division Name Role Phone Geo Herbert MD Primary Care Provider [phone] Ivan Ash MD Primary Care Provider Unav ailable Encounter Details Date Type Department Care Team Description 03/27/2016 [facility] Medical Records [address] [place] [address] Michel Juarez MD Social History Tobacco Use [...] on filedocumented in this encounter Care Teams Pipeline Superintendent Division Relationship Specialty Start Date End Date Geo Herbert MD [address] [place], [place] [id number] PCP - General Internal Medicine 03/10/15 11/06/21 Ivan Ash MD [address] [place] [address] PCP - General Family Practice 11/07/21 documented as of this encounter
--- OUTSIDE RECORDS SUMMARY | 2024-09-17 14:12 | XMS_ITS | Clinical Summary ---
Author Organization [facility] Address [address] [place] [address] Care Team Providers Care Paper Coating Supervisor Name Role Phone Ivan Ash MD Primary Care Provider Unav ailable Allergies No known active allergies Medications Medication Sig Dispensed Refills Start Date End Date Status hydrochlorothiazide (HYDRODIURIL) 25 MG tabletIndications:S/P spinal fusion,Chronic back pain,Coronary artery disease involving [place] coronary artery without angina pectoris,Coronary artery disease involving [place] coronary artery without angina pectoris,Anxiety,Anxiet y and depression,Bipolar disease, manic (HCC),Essential hypertension,Hyperlipid emia,Hip arthritis,Arthritis of knee,Fibromyalgia,Right shoulder pain Take 25 mg by mouth daily. 0 Active atorvastatin (LIPITOR) 40 MG tabletIndications:S/P spinal fusion,Chronic back pain,Coronary artery disease involving [place] coronary artery without angina pectoris,Coronary artery disease involving [place] coronary artery without angina pectoris,Anxiety,Anxiet y and depression,Bipolar disease, manic (HCC),Essential hypertension,Hyperlipid emia,Hip arthritis,Arthritis of knee,Fibromyalgia,Right shoulder pain Take 40 mg by mouth daily. 0 Active metoprolol (TOPROL-XL) 50 MG 24 hr tabletIndications:S/P spinal fusion,Chronic back pain,Coronary artery disease involving [place] coronary artery without angina pectoris,Coronary artery disease involving [place] coronary artery without angina pectoris,Anxiety,Anxiet y and depression,Bipolar disease, manic (HCC),Essential hypertension,Hyperlipid emia,Hip arthritis,Arthritis of knee,Fibromyalgia,Right shoulder pain Take 200 mg by mouth daily. 0 Active aspirin 81 MG tabletIndications:S/P spinal fusion,Chronic back pain,Coronary artery disease involving [place] coronary artery without angina pectoris,Coronary artery disease involving [place] coronary artery without angina pectoris,Anxiety,Anxiet y and depression,Bipolar disease, manic (HCC),Essential hypertension,Hyperlipid emia,Hip arthritis,Arthritis of knee,Fibromyalgia,Right shoulder pain Take 81 mg by mouth daily. 0 Active hydrocodone-acetaminoph en (VICODIN ES) 7.5-750 MG per tabletIndications:S/P spinal fusion,Chronic back pain,Coronary artery disease involving [place] coronary artery without angina pectoris,Coronary artery disease involving [place] coronary artery without angina pectoris,Anxiety,Anxiet y and depression,Bipolar disease, manic (HCC),Essential hypertension,Hyperlipid emia,Hip arthritis,Arthritis of knee,Fibromyalgia,Right shoulder pain Take 1 tablet.old by mouth every 6 hours as needed. 0 Active clonazepam (KLONOPIN) 2 MG disintegrating tablet Take 3 mg by mouth at bedtime. 2 tabs 0 03/21/2016 Active silver sulfADIAZINE (SSD) 1 % cream Apply small amount to the wound once daily before dressing with bandaid 50 g 1 01/03/2022 Active Active Problems Problem Noted Date S/P spinal fusion - sees pain management [place] 03/31/2015 Overview: Dr. [place] (physiatry) Chronic back pain 03/31/2015 CAD S/p Stenting 03/31/2015 Overview: Dr. Veloz in cardiology ([facility]) Anxiety and depression 03/31/2015 Overview: Sees haja farr APRN Bipolar disease, manic 03/31/2015 Hyperlipidemia 03/31/2015 Essential hypertension 03/31/2015 Arthritis of knee 03/31/2015 Hip arthritis 03/31/2015 Fibromyalgia 03/31/2015 Sleep apnea 03/31/2015 Hx of substance abuse 03/31/2015 H/O ETOH abuse 03/31/2015 Immunizations Name Administration Dates Next Due Tdap 12/19/2015 Family History Medical History Relation Name Comments Colon Polyps Father diverticulitis [Other] Father cad, htn, etoh abuse CAD Mother depression, dec eased Relation Name Status Comments Father Mother Social History Tobacco Use Types Packs/Day Years Used Date Smoking Tobacco: Former Smokeless Tobacco: Former Quit: 03/31/1995 Comments:10 years x 1pp = 10 pack years Alcohol Use Standard Drinks/Week Comments No 0 (1 standard drink = 0.6 oz pur e alcohol) sober since 1987 Sex Assigned at Date Recorded Not on file Last Filed Vital Signs Vital Sign Reading Time Taken Comments Blood Pressure 134/72 03/21/2016 9:57 AM EDT Pulse 66 03/21/2016 9:57 AM EDT Temperature 37.1 ??C (98.8 ??F) 03/21/2016 9:57 AM ED T Respiratory Rate 20 03/21/2016 9:57 AM EDT Oxygen Saturation 97% 11/14/2015 1:16 PM EDT Inhaled Oxygen Concentration - - Weight 102.1 kg (225 lb) 01/30/2022 2:05 PM EDT Height 167.6 cm (5' 6 ) 01/30/2022 2:05 PM EDT Body Mass Index 36.32 01/30/2022 2:05 PM EDT Plan of Treatment Health Maintenance Due Date Last Done Comments Covid-19 Vaccine (#1) 1966 DEPRESSION SCREEN 1978 HEPATITIS C SCREENING 1984 COLON CANCER SCREENING 2016 SHINGLES VACCINE (1 of 2) 2016 BASELINE HEALTH EXAM 40-64 12/18/2017 12/19/2015 CHOLESTEROL SCREENING 11/13/2020 11/14/2015 BMI CHECK/ADVISE 05/19/2024 12/19/2015, 11/14/2015 INFLUENZA (Season Ended) 2025 DTAP/TDAP/TD (3 - Td or Tdap) 02/24/2030 02/25/2020, 12/19/2015 PNEUMOCOCCAL VACCINE FOR HIG H RISK PATIENTS (#1) 2031 Care Teams Paper Coating Supervisor Relationship Specialty Start Date End Date Ivan Ash MD PCP - General Family Practice 11/07/21
--- OUTSIDE RECORDS SUMMARY | 2024-09-17 14:12 | XMS_ITS | Encounter Summary ---
Author Organization [facility] Address [address] [place] [address] Care Team Providers Care Cloth Carrier Name Role Phone Geo Herbert MD Primary Care Provider [phone] Ivan Ash MD Primary Care Provider Unav ailable Encounter Details Date Type Department Care Team Description 01/18/2016 Light Industrial Supervisor Report Medical Records [address] [place] [id number] Mauro Clarke PA-C Social History Tobacco Use [...] on filedocumented in this encounter Care Teams Cloth Carrier Relationship Specialty Start Date End Date Geo Herbert MD [address] [place] [address] [phone] PCP - General Internal Medicine 03/10/15 11/06/21 Ivan Ash MD [address] [place] [id number] PCP - General Family Practice 11/07/21 documented as of this encounter
--- OUTSIDE RECORDS SUMMARY | 2024-09-17 14:12 | XMS_ITS | Encounter Summary ---
Author Organization [facility] Address [address] [place] [address] Care Team Providers Care Information Clerk Cashier Name Role Phone Geo Herbert MD Primary Care Provider [phone] Ivan Ash MD Primary Care Provider Unav ailable Encounter Details Date Type Department Care Team Description 07/17/2016 Stoner Hand Report Medical Records [address] [place] [address] Kerry San Np Social History Tobacco Use Types Packs/Day Years [...] on filedocumented in this encounter Care Teams Information Clerk Cashier Relationship Specialty Start Date End Date Geo Herbert MD [address] [place], [place] [phone] PCP - General Internal Medicine 03/10/15 11/06/21 Ivan Ash MD [address] [place] [address] PCP - General Family Practice 11/07/21 documented as of this encounter
--- OUTSIDE RECORDS SUMMARY | 2024-09-17 14:12 | XMS_ITS | Encounter Summary ---
Author Organization [facility] Address [address] [place] [address] Care Team Providers Care Service Order Taker Name Role Phone Geo Herbert MD Primary Care Provider [phone] Ivan Ash MD Primary Care Provider Unav ailable Encounter Details Date Type Department Care Team Description 08/28/2015 Release of Information Medical Records [address] [place] [address] Abstract, Provider Social History Tobacco Use Types [...] on filedocumented in this encounter Care Teams Service Order Taker Relationship Specialty Start Date End Date Geo Herbert MD [address] [place] [address] [phone] PCP - General Internal Medicine 03/10/15 11/06/21 Ivan Ash MD [address] [place], [place] [phone] PCP - General Family Practice 11/07/21 documented as of this encounter
--- OUTSIDE RECORDS SUMMARY | 2024-09-17 14:12 | XMS_ITS | Encounter Summary ---
Author Organization [facility] Address [address] [place] [address] Care Team Providers Care Shingle Weaver Name Role Phone Geo Herbert MD Primary Care Provider [phone] Ivan Ash MD Primary Care Provider Unav ailable Encounter Details Date Type Department Care Team Description 12/21/2015 Business Doc Medical Records [address] [place] [address] Abstract, Provider Social History Tobacco Use Types [...] on filedocumented in this encounter Care Teams Shingle Weaver Relationship Specialty Start Date End Date Geo Herbert MD [address] [place] [address] [phone] PCP - General Internal Medicine 03/10/15 11/06/21 Ivan Ash MD [address] [place] [id number] PCP - General Family Practice 11/07/21 documented as of this encounter
--- OUTSIDE RECORDS SUMMARY | 2024-09-17 14:12 | XMS_ITS | Encounter Summary ---
Author Organization [facility] Address [address] [place] [address] Care Team Providers Care Tourist Information Assistant Name Role Phone Geo Herbert MD Primary Care Provider [phone] Ivan Ash MD Primary Care Provider Unav ailable Encounter Details Date Type Department Care Team Description 07/20/2016 Oyster Culler Report Medical Records [address] [place] [address] Abstract, Provider Social History Tobacco Use Types [...] on filedocumented in this encounter Care Teams Tourist Information Assistant Relationship Specialty Start Date End Date Geo Herbert MD [address] [place] [address] [phone] PCP - General Internal Medicine 03/10/15 11/06/21 Ivan Ash MD [address] [place] [phone] PCP - General Family Practice 11/07/21 documented as of this encounter
--- OUTSIDE RECORDS SUMMARY | 2024-09-17 14:12 | XMS_ITS | Encounter Summary ---
Author Organization [facility] Address [address] [place] [address] Care Team Providers Care Inweaver Name Role Phone Geo Herbert MD Primary Care Provider [phone] Ivan Ash MD Primary Care Provider Unav ailable Encounter Details Date Type Department Care Team Description 08/26/2016 Big Data Admin Report Medical Records [address] [place] [address] Abstract, Provider Social History Tobacco Use Types [...] on filedocumented in this encounter Care Teams Inweaver Relationship Specialty Start Date End Date Geo Herbert MD [address] [place] [address] [phone] PCP - General Internal Medicine 03/10/15 11/06/21 Ivan Ash MD [address] [place] [id number] PCP - General Family Practice 11/07/21 documented as of this encounter
--- OUTSIDE RECORDS SUMMARY | 2024-09-17 14:12 | XMS_ITS | Encounter Summary ---
Author Organization [facility] Address [address] [place] [address] Care Team Providers Care Supervisor Painting Department Name Role Phone Geo Herbert MD Primary Care Provider [phone] Ivan Ash MD Primary Care Provider Unav ailable Encounter Details Date Type Department Care Team Description 04/04/2015 Release of Information Medical Records [address] [place] [address] Abstract, Provider Social History Tobacco Use Types [...] on filedocumented in this encounter Care Teams Supervisor Painting Department Relationship Specialty Start Date End Date Geo Herbert MD [address] [place] [address] [phone] PCP - General Internal Medicine 03/10/15 11/06/21 Ivan Ash MD [address] [place], [place] [phone] PCP - General Family Practice 11/07/21 documented as of this encounter
[2024-09-17 18:06] LABS: Anion Gap 12 (12-20); Blood Urea Nitrogen 27 mg/dL (9-16); Calcium 8.7 mg/dL (8.4-10.2); Carbon Dioxide 25 mmol/L (22-29); Chloride 110 mmol/L (96-108); Estimated Glomerular Filt Rate > 60; Glucose Random 88 mg/dL (60-115); Potassium 4.8 mmol/L (3.3-5.1); Sodium 142 mmol/L (135-145)
== END 2024-09-17 13:54 | disposition home or self-care (01) ==
LOC: HO.WFDLDS 13:53
PROVIDERS: Visit Provider Family Medicine
DX: Z13.89 Encounter for screening for other disorder (principal)
CPT/HCPCS: 36415; 80048

== ENCOUNTER 2024-09-17 14:54 | Outpatient (REF) | payer MEDICARE, MEDICAID, SELFPAY ==
--- NOTE | ~2024-09-17 | CT_ITS ---
CLINICAL HISTORY: R91.8 - Other nonspecific abnormal finding of lung field CT chest without contrast Comparison: CT/FL/SR - CT CHEST WO IV CON - 01/06/23 15:08 EDT Findings: The heart size is normal. Severe atherosclerotic disease of the coronary arteries. No discrete thyroid lesion. Few scattered 2-3 mm nodules, for example left upper lobe axial 60 and subpleural right lower lobe, axial 81. No new, increasing or suspicious nodule identified. No effusion. No pneumothorax. Mild airway thickening present. The visualized upper abdomen demonstrates gallstones. No acute osseous finding. Degenerative changes seen within the spine. Impression: Stable scattered benign-appearing nodules. No further follow-up guidance. This document has been electronically signed by: Samuel Norton MD on 09/20/2024 12:57:05
== END 2024-09-17 14:55 | disposition home or self-care (01) ==
LOC: HO.CT 14:54
PROVIDERS: PCP Family Medicine; Visit Provider Nurse Practitioner Family
DX: R91.8 Other nonspecific abnormal finding of lung field (principal)
CPT/HCPCS: 36415; 71250; 80048; 83036; 99212

== ENCOUNTER → 2024-09-17 14:55 | Outpatient (BNV) | payer MEDICARE, MEDICAID, SELFPAY | PROVIDERS: PCP Family Medicine; Visit Provider Radiology Vascular & Interventional Radiology | DX: R91.8 Other nonspecific abnormal finding of lung field (principal) | CPT/HCPCS: 71250 ==

== ENCOUNTER 2024-12-21 11:19 | Outpatient (AMB) | payer MEDICARE, MEDICAID, SELFPAY ==
--- NOTE | 2024-12-21 11:43 | MHC.PC.OV ---
Vital Signs 12/21/24 11:53 Height 5 ft 5 in Weight 204 lb 2 oz BMI 34.0 BP 106/60 Blood Pressure Location Rt brachial Position Sitting Respiration 16 Pulse 61 Pulse Source Pulse Oximeter Temp 97.9 F Temp Source Oral Pulse Oximetry (%) 98 Oxygen Delivery Method Room Air Intake Visit Reasons: f/u diabetes Intake Note: patient is scheduled for dm follow up Hair Salon Manager Required: No Allergies No Known Allergies Allergy (Verified 12/21/24 11:49) Medication List - Last Reconciled 12/21/24 by Ivan Ash MD aspirin (St Von Aspirin) 81 mg PO DAILY blood sugar diagnostic (FreeStyle Lite Strips) DX: E11.9, test blood sugar once a day, 90 days blood-glucose meter (FreeStyle Lite Meter kit) DX: E11.9, test blood sugar once a day, duration 999 days buspirone 5 mg PO DAILY cetirizine (Zyrtec) 10 mg PO DAILY PRN clonazepam 1.5 mg PO BEDTIME diltiazem HCl ER 180 mg PO DAILY ezetimibe 10 mg PO DAILY fluticasone furoate-vilanterol 100-25 mcg/dose (Breo Ellipta) 1 inh inhalation DAILY gabapentin 600 mg PO TID glipizide ER 5 mg PO QAM 90 days lancets (FreeStyle Lancets) As directed levalbuterol tartrate 45 mcg/actuation 1 puff inhalation Q4-6H PRN metformin 250 mg (1/2 x 500 mg) PO BID 90 days metoprolol succinate ER 50 mg PO BID pantoprazole 40 mg PO QPM 30 days rosuvastatin 40 mg PO ONCE Tobacco use date assessed: 03/09/24 Dental Screening Dental Screen Date: 03/09/24 HPI f/u diabetes HPI Details 59 y/o male presents to f/u diabetes, chronic conditions. Last A1c 09/17/24 5.9%. A1c today 12/21/24 is 5.8%. BP today 106/60, 61p. He is on metoprolol 50mg b.i.d. Had complaints of numbness/tingling of his feet. Pt notes hx of sleep apnea. He did used to have a CPAP machine but no longer has one. HPI Comments History of Present Illness Details Documentation assistance for Ivan Ash MD, was provided by Yan Gao,? Ticket Counter on 12/21/2024 at 12:19 PM VALARIE. I, Dr. Ash, have read, observed, and verified documentation. [facility] Medical History (Updated 12/21/24 @ 12:14 by aYn Gao) Sleep apnea Arthritis Chronic neck and back pain On beta jamari at home CAD (coronary artery disease) Substance abuse HTN (hypertension) Surgical History (Updated 04/05/24 @ 08:11 by EL Osuna) Hx of CABG H/O spinal fusion Stented coronary artery Hx of endoscopy Hx of colonoscopy Family History Mother COPD (chronic obstructive pulmonary disease) Cancer Substance abuse Mental health disorder Father CAD (coronary artery disease) COPD (chronic obstructive pulmonary disease) Social History Household Members: Family Housing: House Are you a primary college and career counselor to a significant other at home: No Do you presently have visiting nurse or other home services: No Alcohol intake: former Patient Tobacco Use Status: Former Tobacco user Tobacco use type: Cigarette Cigarette Packs Per Day: 1 Cigarettes Per Day: 20 Years Smoked: 20 e-Cigarette/Vaping Use: Never Used Second Hand Smoke Exposure: No Substance Use Type: Marijuana service: No Current occupational status: employed and disabled Current occupational exposures/hazards: No Cognitive needs: No Hearing needs: No Vision needs: No Questionnaire Thrive Questionnaire Date Thrive assessed: 09/14/24 I am a: Patient What is your living situation today?: I do not have a steady places to live I am temporarily staying with others Within the past 12 months, did the food you bought not last and you didn't have the money to get more?: Often true Within the past 12 months, did you worry whether your food would run out before you got money to buy more?: Often true Do you have trouble paying for medicines?: No Do you have trouble getting transportation to medical appointments?: No Do you have trouble paying your heating and electricity bill?: Yes Do you have trouble taking care of your child, family member or friend?: No Do you have trouble with day-to-day activities such as bathing, preparing meals, shopping, managing finances, etc.?: Yes Are you currently unemployed and looking for a job?: No Are you interested in more education?: No THRIVE Score: 4 MCKENNA-7 AMB Questionnaire MCKENNA-7 Date MCKENNA - 7 assessed: 06/11/23 Source: Developed by Drs. Junior Richards, Vania Vázquez, Fred Boudreaux and colleagues, with an educational zacarias from [employer]. Review of Systems Const Denies chills, Denies fatigue, Denies fever(s), Denies headache(s) and Denies weakness ENT Denies dizziness and Denies headache(s) Card Denies dyspnea Resp Denies cough, Denies dyspnea, Denies wheezing and Denies other (shortness of breath) Musc Denies numbness and Denies tingling Neuro Denies dizziness, Denies headache(s), Denies numbness, Denies tingling and Denies weakness Psych Denies anxiety and Denies depression Endo Denies fatigue Aller/Immun Denies wheezing Physical exam (Primary Care) Vital Signs: Last Vital Signs Temp 97.9 F 12/21/24 11:53 Pulse 61 12/21/24 11:53 Resp 16 12/21/24 11:53 BP 106/60 12/21/24 11:53 Pulse Ox 98 12/21/24 11:53 Oxygen Delivery Method Room Air 12/21/24 11:53 BMI result Body Mass Index 34.0 Tobacco/Smoking Status: Tobacco use Status Tobacco use date assessed 03/09/24 12/21/24 11:44 Patient Tobacco Use Status Former Tobacco user 12/21/24 11:44 Tobacco use type Cigarette 12/21/24 11:44 e-Cigarette/Vaping Use Never Used 12/21/24 11:44 Thrive Assessment: Date of Thrive Assessment Date Thrive assessed 09/14/24 12/21/24 11:44 Const General: well developed; No acute distress Nutritional Appearance: well nourished Orientation/consciousness: patient oriented x3 HENMT Head: Yes normocephalic and Yes atraumatic Eyes General: appearance normal, both eyes and all related structures Pupils: Equal, round and reactive pupils present EOM: EOMs intact bilaterally Resp Effort & Inspection: normal respiratory effort Neuro General: patient oriented x3 and gait normal Cranial nerves: Yes Equal, round and reactive pupils present Psych Affect: normal affect Coding Level of Care Code Est Pt Level 4 (22504) Diagnoses Diabetes E11.9 HTN (hypertension) I10 CAD (coronary artery disease) I25.10 Numbness and tingling of both feet R20.0; R20.2 Sleep apnea G47.30 Assessment & Plan Assessment & Plan (1) Diabetes: Code(s): E11.9 - Type 2 diabetes mellitus without complications Category: Medical Plan: A1c 5.8%. Good control. Goal is less than 7.0% Continue current medication regimen (2) HTN (hypertension): Code(s): I10 - Essential (primary) hypertension Category: Medical Plan: Blood pressure is well controlled. Goal is less than 130/80 Continue current medications Continue exercise and weight loss (3) CAD (coronary artery disease): Code(s): I25.10 - Atherosclerotic heart disease of [place] coronary artery without angina pectoris Category: Medical Plan: Stable and followed by cardiology Patient says he had lipids drawn with Cardiology recently. Will request report (4) Numbness and tingling of both feet: Code(s): R20.0 - Anesthesia of skin; R20.2 - Paresthesia of skin Category: Medical Plan: Still has numbness and tingling particularly at right lower leg This has not worsened He is elevating his leg He will let me know if this worsens or he has any weakness. Would refer him to Neurology (5) Sleep apnea: Comment: no CPAP Code(s): G47.30 - Sleep apnea, unspecified Category: Medical Plan: History of sleep apnea and significant snoring and difficulty with sleep. On restful sleep and some daytime fatigue Will refer him to Sleep Medicine for further workup. Orders: Referrals Sleep Medicine Referral G47.30 - Sleep apnea, unspecified
[2024-12-21 11:53] VITALS: BP 106/60; PULSE 61; RESP 16; TEMP 36.6; O2SAT 98; BMI 34.0
== END 2024-12-21 12:21 | disposition home or self-care (01) ==
LOC: HO.HMCFM 11:20
PROVIDERS: PCP Family Medicine; Visit Provider Family Medicine
DX: E11.9 Type 2 diabetes mellitus without complications (principal); I10 Essential (primary) hypertension; I25.10 Atherosclerotic heart disease of native coronary artery without angina pectoris; R20.0 Anesthesia of skin; R20.2 Paresthesia of skin; G47.30 Sleep apnea, unspecified

== ENCOUNTER → 2024-12-21 11:19 | Outpatient (BNVA) | payer MEDICARE, MEDICAID, SELFPAY | PROVIDERS: PCP Family Medicine; Visit Provider Family Medicine | DX: E11.9 Type 2 diabetes mellitus without complications (principal); I10 Essential (primary) hypertension; I25.10 Atherosclerotic heart disease of native coronary artery without angina pectoris; R20.0 Anesthesia of skin; R20.2 Paresthesia of skin; G47.30 Sleep apnea, unspecified | CPT/HCPCS: 99212 ==

== ENCOUNTER 2025-01-11 10:44 | Outpatient (AMB) | payer MEDICARE, MEDICAID, SELFPAY ==
[2025-01-11 10:48] VITALS: BP 138/64; PULSE 64; O2SAT 98; BMI 33.3
--- NOTE | 2025-01-11 10:48 | MHC.OFFVIS ---
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 Required: No Accompanied by: Self / Same As Patient Allergies No Known Allergies Allergy (Verified 01/11/25 10:53) Medication List - Last Reconciled 01/11/25 by Kourntey Carter LPN aspirin (St Von Aspirin) 81 mg PO DAILY blood sugar diagnostic (FreeStyle Lite Strips) DX: E11.9, test blood sugar once a day, 90 days blood-glucose meter (FreeStyle Lite Meter kit) DX: E11.9, test blood sugar once a day, duration 999 days buspirone 5 mg PO DAILY buspirone 15 mg orally at bedtime; cetirizine (Zyrtec) 10 mg PO DAILY PRN clonazepam 1.5 mg PO BEDTIME diltiazem HCl ER 180 mg PO DAILY ezetimibe 10 mg PO DAILY fluticasone furoate-vilanterol 100-25 mcg/dose (Breo Ellipta) 1 inh inhalation DAILY gabapentin 600 mg PO TID glipizide ER 5 mg PO QAM 90 days lancets (FreeStyle Lancets) As directed metformin 250 mg (1/2 x 500 mg) PO BID 90 days metoprolol succinate ER 50 mg PO BID pantoprazole 40 mg PO QPM 30 days rosuvastatin 40 mg PO ONCE HPI HPI Asthma: Details: David is a pleasant 59 year old male, former 10 pack year, quit 20+ years ago, significant h/o smoking marijuana with underlying asthma, chronic allergic rhinitis, atrial fibrillation on Eliquis and s/p CABG x 3. Since the last visit he reports decrease in marijuana use, engaging in daily exercise and diet changes which have resulted in 15 lb+ weight loss. He is motivated to continue. At this time, he reports moderate control of asthma, continues with dyspnea, denies cough, wheezing or chest tightness. He denies any visits to urgent care or hospitalizations related to respiratory distress since the last visit. [facility] Medical History (Updated 12/21/24 @ 12:14 by Yan Gao) Sleep apnea Arthritis Chronic neck and back pain On beta jamari at home CAD (coronary artery disease) Substance abuse HTN (hypertension) Surgical History (Updated 04/05/24 @ 08:11 by EL Osuna) Hx of CABG H/O spinal fusion Stented coronary artery Hx of endoscopy Hx of colonoscopy Family History Mother COPD (chronic obstructive pulmonary disease) Cancer Substance abuse Mental health disorder Father CAD (coronary artery disease) COPD (chronic obstructive pulmonary disease) Social History Household Members: Family Housing: House Are you a primary urgent care technician to a significant other at home: No Do you presently have visiting nurse or other home services: No Alcohol intake: former Patient Tobacco Use Status: Former Tobacco user Tobacco use type: Cigarette Cigarette Packs Per Day: 1 Cigarettes Per Day: 20 Years Smoked: 20 e-Cigarette/Vaping Use: Never Used Second Hand Smoke Exposure: No Substance Use Type: Marijuana service: No Current occupational status: employed and disabled Current occupational exposures/hazards: No Cognitive needs: No Hearing needs: No Vision needs: No Review of Systems Const Denies chills, Denies excessive sweating, Denies fever(s), Denies headache(s) and Denies night sweats Eyes Denies dry eyes, Denies irritation and Denies itchy eyes ENT Reports Normal hearing present, Denies headache(s), Denies nasal congestion, Denies nasal discharge, Denies post nasal drip and Denies sore throat Card Denies chest pain, Denies chest pain at rest, Denies chest pain with activity, Denies claudication, Denies leg edema, Denies orthopnea and Denies paroxysmal nocturnal dyspnea Resp Denies chest congestion, Denies cough, Denies excessive phlegm production, Denies pain on inspiration, Denies pain with cough, Denies stridor and Denies wheezing Musc Denies myalgias Neuro Reports Normal hearing present and Denies headache(s) Endo Denies excessive sweating Librado/Lymph Denies lymphadenopathy Aller/Immun Denies itchy eyes, Denies seasonal rhinorrhea and Denies wheezing Physical Exam Vital Signs: Last Vital Signs Pulse 64 01/11/25 10:48 BP 138/64 01/11/25 10:48 Pulse Ox 98 01/11/25 10:48 Oxygen Delivery Method Room Air 01/11/25 10:48 BMI result Body Mass Index 33.3 Const General: cooperative, healthy appearing, comfortable, no acute distress, well developed and alert Nutritional Appearance: obese Orientation/consciousness: patient oriented x3 Limitations: no limitations HEENT Head: Yes normal to inspection, Yes normocephalic and Yes atraumatic Ears: hearing grossly normal bilaterally and external ears normal Eyes General: appearance normal, both eyes and all related structures Eyelids: Yes eyelids normal Sclerae: sclerae normal EOM: EOMs intact bilaterally Neck Neck: Yes normal visual inspection and Yes no lymphadenopathy Lymphatic: no lymphadenopathy noted Chest Chest palpation & inspection: normal inspection of the chest Resp Effort & Inspection: normal respiratory effort, able to speak in complete sentences, no audible wheezes, no cough, no stridor, not tachypneic, no tripod positioning and no use of accessory muscles Auscultation: clear to auscultation bilaterally Cardio Jugular venous distension: no JVD Rate: regular rate Rhythm: regular rhythm Skin Other: warm, dry General skin exam: no rashes or lesions noted Neuro General: patient oriented x3 Cranial nerves: Yes Normal hearing present Cognition (Neuro): normal cognition Gait exam (Neuro): Normal gait present Extrem General: Yes normal to inspection, Yes capillary refill normal, Yes no clubbing, cyanosis or edema and Yes no pedal edema Psych Appearance: grossly normal and well kempt Speech and movement: Normal speech and movement present and Clear speech present Affect: normal affect Attitude: cooperative Thought process: Normal thought process present Thought content: Normal thought content present Insight: Good insight present (Psych) Judgement: Good judgement present (Psych) Assessment & Plan Assessment & Plan (1) Asthma: Code(s): J45.909 - Unspecified asthma, uncomplicated Category: Medical (2) Multiple pulmonary nodules: Code(s): R91.8 - Other nonspecific abnormal finding of lung field Category: Medical (3) Environmental allergies: Code(s): Z91.09 - Other allergy status, other than to drugs and biological substances Category: Medical Plan At this time David reports suboptimal control on Breo 100 mcg of he continues with dyspnea on exertion. Will increase Breo and consider adding Incruse if no significant improvement. He does report newly obtaining a cat and dog which may be triggering symptoms encouraged use of daily antihistamine. Prior chest CT revealed multiple stable nodules less than 3 mm in size since 2022, no need for further imaging at this time. All questions were answered and patient is in agreement of plan. Will follow up in 6-8 weeks or sooner if needed. Medications: New fluticasone furoate-vilanterol 200-25 mcg/dose (Breo Ellipta) 1 inh inhalation DAILY 60 ea 3RF Discontinued fluticasone furoate-vilanterol 100-25 mcg/dose (Breo Ellipta) Discontinued Reason: Patient Completed Course 1 inh inhalation DAILY 60 ea 6RF Coding Level of Care Code Est Pt Level 4 (33948) Diagnoses Asthma J45.909 Multiple pulmonary nodules R91.8 Environmental allergies Z91.09
== END 2025-01-11 11:22 | disposition home or self-care (01) ==
LOC: HO.HPSW 10:45
PROVIDERS: PCP Family Medicine; Visit Provider Nurse Practitioner Family
DX: J45.909 Unspecified asthma, uncomplicated (principal); R91.8 Other nonspecific abnormal finding of lung field; Z91.09 Other allergy status, other than to drugs and biological substances
CPT/HCPCS: 99214

== ENCOUNTER → 2025-01-11 10:44 | Outpatient (BNVA) | payer MEDICARE, MEDICAID, SELFPAY | PROVIDERS: PCP Family Medicine; Visit Provider Nurse Practitioner Family | DX: R91.8 Other nonspecific abnormal finding of lung field (principal); J45.909 Unspecified asthma, uncomplicated; Z91.09 Other allergy status, other than to drugs and biological substances | CPT/HCPCS: 99212 ==

== ENCOUNTER 2025-01-27 14:48 | Outpatient (AMB) | payer MEDICARE, MEDICAID, SELFPAY ==
[2025-01-27 15:23] VITALS: BP 128/62; PULSE 76; O2SAT 98; BMI 34.3
--- NOTE | 2025-01-27 15:23 | MHC.OFFVIS ---
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 On restful sleep and some daytime fatigue. Patient was on CPAP and needed a new machine and was going through hoops. Last sleep study few years ago. Accompanied by: Self / Same As Patient Allergies No Known Allergies Allergy (Verified 01/27/25 15:23) HPI Comments Details: 59 year old male here for vivi evaluation, he is referred to us by his PCP. CABG in Dec 2023, and T2DM on metformin. He has trouble sleeping more than 3 hours, he has done sleep studies but not able to complete the studies. He had a sleep study years ago and was unable to use his cpap due to communication issues. He goes to bed at 10pm and wakes up, multiple arousals through the night and falls back asleep, and sleeps between 3am -5am. He does not have bruxism, clenching of the jaw. He gets migraines few times a week, radiate back of head, denies photo/phonophobia, n/v and gait / and balance issues. He has RLS, calves are feet bilaterally, burning, tingling, numbness needles. Memory is poor, forgetful. His mood has improved with the daily use of MJ.DAB concentrates, 1/4 ounce a day. Denies alcohol use and does not smoke cigarettes. 2 Strokes one in 2017 and one in 2020, request records from pcp. [facility] Medical History Sleep apnea Arthritis Chronic neck and back pain On beta jamari at home CAD (coronary artery disease) Substance abuse HTN (hypertension) Surgical History Hx of CABG H/O spinal fusion Stented coronary artery Hx of endoscopy Hx of colonoscopy Family History Mother COPD (chronic obstructive pulmonary disease) Cancer Substance abuse Mental health disorder Father CAD (coronary artery disease) COPD (chronic obstructive pulmonary disease) Social History Household Members: Family Housing: House Are you a primary district manager primary care sales to a significant other at home: No Do you presently have visiting nurse or other home services: No Alcohol intake: former Patient Tobacco Use Status: Former Tobacco user Tobacco use type: Cigarette Cigarette Packs Per Day: 1 Cigarettes Per Day: 20 Years Smoked: 20 e-Cigarette/Vaping Use: Never Used Second Hand Smoke Exposure: No Substance Use Type: Marijuana service: No Current occupational status: employed and disabled Current occupational exposures/hazards: No Cognitive needs: No Hearing needs: No Vision needs: No Physical Exam Vital Signs: Last Vital Signs Pulse 76 01/27/25 15:23 BP 128/62 01/27/25 15:23 Pulse Ox 98 01/27/25 15:23 Oxygen Delivery Method Room Air 01/27/25 15:23 BMI result Body Mass Index 34.3 Const General: cooperative, comfortable and no acute distress Nutritional Appearance: obese Orientation/consciousness: patient oriented x3 Neck Neck: Yes full ROM Resp Effort & Inspection: normal respiratory effort and able to speak in complete sentences Neuro General: patient oriented x3 and moves all extremities Cranial nerves: Yes Normal facial strength present, Yes Midline tongue present, Yes Ability to bilaterally rotate head present and Yes Ability to bilaterally elevate shoulders present Cognition (Neuro): normal cognition Gait exam (Neuro): Normal gait present Psych Appearance: grossly normal Thought process: Normal thought process present Thought content: Normal thought content present Results Reviewed Results Reviewed: Impression: Stable scattered benign-appearing nodules. No further follow-up guidance. Assessment & Plan Assessment & Plan (1) Excessive daytime sleepiness: Code(s): G47.19 - Other hypersomnia Category: Medical (2) Chronic headaches: Code(s): R51.9 - Headache, unspecified; G89.29 - Other chronic pain Category: Medical Qualifiers: Headache type: cluster Intractability: intractable Qualified Code(s): G44.021 - Chronic cluster headache, intractable Plan PSG to r/o vivi Labs to r/o fatigue Headaches Sumatriptan 50mg po at the onset of headache, may take one more tablet in 2 hours if the headache does not subside. Do not exceed more than 4 tablets in a 24 hour period. 2 Strokes one in 2018 and one in 2020, request records from pcp. F/U in 3 months Orders: Orders RT PSG in-lab sleep study Today G47.19 - Other hypersomnia Methylmalonic Acid Today G47.19 - Other hypersomnia, G47.9 - Sleep disorder, unspecified, R53.83 - Other fatigue Homocysteine Today G47.19 - Other hypersomnia, G47.9 - Sleep disorder, unspecified, R53.83 - Other fatigue Vitamin D 25-OH Total Today G47.19 - Other hypersomnia Vitamin B6 Today G47.19 - Other hypersomnia Vitamin B12 and Folate Today G47.19 - Other hypersomnia Vitamin B1 Today G47.19 - Other hypersomnia TSH reflex Free T4 Today G47.19 - Other hypersomnia Complete Blood Count no Diff Today G47.19 - Other hypersomnia Comprehensive Met. Panel Today G47.19 - Other hypersomnia Ferritin Today G47.19 - Other hypersomnia Hemoglobin A1c Today G47.19 - Other hypersomnia Medications: New sumatriptan succinate take 1 tab at onset of headache; if no relief may repeat 1 tab after at least 2 hrs; max = 4 tabs/24 hr PO 14 tabs 0RF headaches MDD 200mg G89.29 - Other chronic pain, R51.9 - Headache, unspecified Patient Instructions: Sleep Hygiene provided: set a scheduled bedtime and wake time to help regulate the circadian rhythm and balance the release of pituitary hormones. Sleep in a dark room, temperatures below 68 degrees, and no devices n bed. Limit caffeinated products 6 hours prior to bed, and limit fluids 2-4 hours prior to bed. Gentle night yoga, diffusing essential oils, and playing soft music can be relaxing. Coding Level of Care Code Est Pt Level 4 (08376) Diagnoses Excessive daytime sleepiness G47.19 Intractable chronic cluster headache G44.021 Headache type: cluster Intractability: intractable
== END 2025-01-27 16:07 | disposition home or self-care (01) ==
LOC: HO.HSMS 14:49
PROVIDERS: PCP Family Medicine; Visit Provider Physician Assistant Medical
DX: G47.19 Other hypersomnia (principal); G44.021 Chronic cluster headache, intractable
CPT/HCPCS: 99214

== ENCOUNTER → 2025-01-27 14:48 | Outpatient (BNVA) | payer MEDICARE, MEDICAID, SELFPAY | PROVIDERS: PCP Family Medicine; Visit Provider Physician Assistant Medical | DX: G44.021 Chronic cluster headache, intractable (principal); G89.29 Other chronic pain; G47.19 Other hypersomnia; G47.9 Sleep disorder, unspecified | CPT/HCPCS: 99212 ==

== ENCOUNTER 2025-03-15 09:17 | Outpatient (AMB) | payer MEDICARE, MEDICAID, SELFPAY ==
--- NOTE | 2025-03-15 09:18 | A.OFFVIS_ITS ---
Vital Signs 03/15/25 09:19 Height 5 ft 5 in Weight 207 lb BMI 34.4 BP 124/68 Blood Pressure Location Rt brachial Position Sitting Pulse 52 Pulse Source Pulse Oximeter Pulse Oximetry (%) 98 Oxygen Delivery Method Room Air Intake Visit Reasons: Asthma Allergies No Known Allergies Allergy (Verified 03/15/25 09:21) HPI HPI Asthma: Details: David is a pleasant 59 year old male, former 10 pack year, quit 20+ years ago, significant h/o smoking marijuana with underlying asthma, chronic allergic r hinitis, atrial fibrillation on Eliquis and s/p CABG x 3. Since the last visit he reports decrease in marijuana use and cessation of dabbing, engaging in exercise and diet changes which have resulted in 15 lb+ weight loss which he is motivated to continue. Since the last visit, he has been using Breo 200 mcg and Albuterol MDI infrequently with good control of respiratory symptoms. He denies any visits to urgent care or hospitalizations related to respiratory distress since the last visit. [facility] Medical History Sleep apnea Arthritis Chronic neck and back pain On beta jamari at home CAD (coronary artery disease) Substance abuse HTN (hypertension) Surgical History Hx of CABG H/O spinal fusion Stented coronary artery Hx of endoscopy Hx of colonoscopy Family History Mother COPD (chronic obstructive pulmonary disease) Cancer Substance abuse Mental health disorder Father CAD (coronary artery disease) COPD (chronic obstructive pulmonary disease) Social History Household Members: Family Housing: House Are you a primary care management coordinator to a significant other at home: No Do you presently have visiting nurse or other home services: No Alcohol intake: former Patient Tobacco Use Status: Former Tobacco user Tobacco use type: Cigarette Cigarette Packs Per Day: 1 Cigarettes Per Day: 20 Years Smoked: 20 e-Cigarette/Vaping Use: Never Used Second Hand Smoke Exposure: No Substance Use Type: Marijuana service: No Current occupational status: employed and disabled Current occupational exposures/hazards: No Cognitive needs: No Hearing needs: No Vision needs: No Review of Systems Const Denies chills, Denies excessive sweating, Denies fever(s), Denies headache(s) and Denies night sweats Eyes Denies dry eyes, Denies irritation and Denies itchy eyes ENT Reports Normal hearing present, Denies headache(s), Denies nasal congestion, Denies nasal discharge, Denies post nasal drip and Denies sore throat Card Denies chest pain, Denies chest pain at rest, Denies chest pain with activity, Denies claudication, Denies leg edema, Denies dyspnea, Denies dyspnea on exertion, Denies orthopnea and Denies paroxysmal nocturnal dyspnea Resp Denies chest congestion, Denies cough, Denies excessive phlegm production, Denies pain on inspiration, Denies pain with cough, Denies dyspnea, Denies dyspnea on exertion, Denies stridor and Denies wheezing Musc Denies myalgias Neuro Reports Normal hearing present and Denies headache(s) Endo Denies excessive sweating Librado/Lymph Denies lymphadenopathy Aller/Immun Denies itchy eyes, Denies seasonal rhinorrhea and Denies wheezing Physical Exam Vital Signs: Last Vital Signs Pulse 52 03/15/25 09:19 BP 124/68 03/15/25 09:19 Pulse Ox 98 03/15/25 09:19 Oxygen Delivery Method Room Air 03/15/25 09:19 BMI result Body Mass Index 34.4 Const General: cooperative, healthy appearing, comfortable, no acute distress, well developed and alert Nutritional Appearance: obese Orientation/consciousness: patient oriented x3 Limitations: no limitations HEENT Head: Yes normal to inspection, Yes normocephalic and Yes atraumatic Ears: hearing grossly normal bilaterally and external ears normal Eyes General: appearance normal, both eyes and all related structures Eyelids: Yes eyelids normal Sclerae: sclerae normal EOM: EOMs intact bilaterally Neck Neck: Yes normal visual inspection and Yes no lymphadenopathy Lymphatic: no lymphadenopathy noted Chest Chest palpation & inspection: normal inspection of the chest Resp Effort & Inspection: normal respiratory effort, able to speak in complete sentences, no audible wheezes, no cough, no stridor, not tachypneic, no tripod positioning and no use of accessory muscles Auscultation: clear to auscultation bilaterally Cardio Jugular venous distension: no JVD Rate: regular rate Rhythm: regular rhythm Skin Other: warm, dry General skin exam: no rashes or lesions noted Neuro General: patient oriented x3 Cranial nerves: Yes Normal hearing present Cognition (Neuro): normal cognition Gait exam (Neuro): Normal gait present Extrem General: Yes normal to inspection, Yes capillary refill normal, Yes no clubbing, cyanosis or edema and Yes no pedal edema Psych Appearance: grossly normal and well kempt Speech and movement: Normal speech and movement present and Clear speech present Affect: normal affect Attitude: cooperative Thought process: Normal thought process present Thought content: Normal thought content present Insight: Good insight present (Psych) Judgement: Good judgement present (Psych) Assessment & Plan Assessment & Plan (1) Asthma: Code(s): J45.909 - Unspecified asthma, uncomplicated Category: Medical (2) Multiple pulmonary nodules: Code(s): R91.8 - Other nonspecific abnormal finding of lung field Category: Medical (3) Environmental allergies: Code(s): Z91.09 - Other allergy status, other than to drugs and biological substances Category: Medical Plan At this time David reports good control of respiratory symptoms with the use of Breo and Albuterol MDI, advised to continue. He is aware to call if symptoms change. Discussed importance of continuing cessation of dabbing and working towards quitting marijuana completely. All questions were answered and patient is in agreement of plan. Will follow up in 3-6 months or sooner if needed. Coding Level of Care Code Est Pt Level 4 (91940) Diagnoses Asthma J45.909 Multiple pulmonary nodules R91.8 Environmental allergies Z91.09
[2025-03-15 09:19] VITALS: BP 124/68; PULSE 52; O2SAT 98; BMI 34.4
== END 2025-03-15 09:45 | disposition home or self-care (01) ==
PROVIDERS: PCP Family Medicine; Visit Provider Nurse Practitioner Family
DX: J45.909 Unspecified asthma, uncomplicated (principal); R91.8 Other nonspecific abnormal finding of lung field; Z91.09 Other allergy status, other than to drugs and biological substances
CPT/HCPCS: 99214

== ENCOUNTER → 2025-03-15 09:17 | Outpatient (BNVA) | payer MEDICARE, MEDICAID, SELFPAY | PROVIDERS: PCP Family Medicine; Visit Provider Nurse Practitioner Family | DX: J45.909 Unspecified asthma, uncomplicated (principal); R91.8 Other nonspecific abnormal finding of lung field; Z91.09 Other allergy status, other than to drugs and biological substances; Z87.891 Personal history of nicotine dependence; Z79.899 Other long term (current) drug therapy | CPT/HCPCS: 99212 ==

== ENCOUNTER 2025-04-05 10:35 | Outpatient (REF) | payer MEDICARE, MEDICAID, SELFPAY ==
[2025-04-05 14:34] LABS: MANUAL DIFF FLAG NO
[2025-04-05 14:49] LABS: Hematocrit 41.1 % (42.0-52.0); Hemoglobin 13.3 g/dl (14.0-18.0); Imm Gran Abs Auto 0.03 X10*3/uL (0.00-0.03); Imm Gran Pct Auto 0.4 % (0.0-0.4); Lymphocytes Absolute Auto 1.7 X10*3/uL (1.2-4.9); Mean Corpuscular HGB Conc 32.4 g/dl (31.0-36.0); Mean Corpuscular Hemoglobin 27.9 pg (27.0-33.0); Mean Corpuscular Volume 86.2 fL (80.0-98.0); NRBC Abs Auto 0.000 X10*3/uL (0.0-0.012); NRBC Pct Auto 0.0 /100WBC (0.0-0.2); Platelet Count 229 X10*3/uL (160-400); Red Blood Count 4.77 X10*6/uL (4.60-5.80); White Blood Count 7.0 X10*3/uL (4.8-10.8)
[2025-04-05 15:10] LABS: Alanine Aminotransferase 20 U/L (0-40); Albumin Level 4.3 g/dL (3.5-5.0); Alkaline Phosphatase 66 U/L (39-117); Anion Gap 13 (12-20); Aspartate Amino Transferase 29 U/L (5-37); Blood Urea Nitrogen 29 mg/dL (9-16); Calcium 8.9 mg/dL (8.4-10.2); Carbon Dioxide 22 mmol/L (22-29); Chloride 110 mmol/L (96-108); Estimated Glomerular Filt Rate > 60; Potassium 4.6 mmol/L (3.3-5.1); Sodium 140 mmol/L (135-145); Total Protein 6.8 g/dL (6.5-8.0)
[2025-04-05 15:23] LABS: Microalbum/Creatinine Ratio Ur 12.3 ug/mg cr (<30)
== END 2025-04-05 10:36 | disposition home or self-care (01) ==
LOC: HO.WFDLDS 10:35
PROVIDERS: Visit Provider Family Medicine
DX: Z00.00 Encounter for general adult medical examination without abnormal findings (principal); E11.9 Type 2 diabetes mellitus without complications; I10 Essential (primary) hypertension; R53.83 Other fatigue
CPT/HCPCS: 36415; 80048; 80053; 82043; 82570; 83036; 84443; 85025

== ENCOUNTER 2025-04-06 11:09 | Outpatient (AMB) | payer MEDICARE, MEDICAID, SELFPAY ==
--- NOTE | 2025-04-06 11:29 | A.OFFPC_ITS ---
Vital Signs 04/06/25 11:34 Height 5 ft 5 in Weight 213 lb 6 oz BMI 35.5 BP 120/60 Blood Pressure Location Rt brachial Position Sitting Respiration 16 Pulse 60 Pulse Source Pulse Oximeter Temp 98.4 F Temp Source Oral Pulse Oximetry (%) 95 Oxygen Delivery Method Room Air Intake Visit Reasons: neck pain and arms Intake Note: patient is scheduled for neck and arm pain along with lab result discussion Board Liner Operator Required: No Allergies No Known Allergies Allergy (Verified 04/06/25 11:32) Medication List - Last Reconciled 04/06/25 by Ivan Ash MD aspirin (St Von Aspirin) 81 mg PO DAILY blood sugar diagnostic (FreeStyle Lite Strips) DX: E11.9, test blood sugar once a day, 90 days blood-glucose meter (FreeStyle Lite Meter kit) DX: E11.9, test blood sugar once a day, duration 999 days buspirone 5 mg PO DAILY buspirone 15 mg orally at bedtime; cetirizine (Zyrtec) 10 mg PO DAILY PRN clonazepam 1.5 mg PO BEDTIME diltiazem HCl ER 180 mg PO DAILY ezetimibe 10 mg PO DAILY fluticasone furoate-vilanterol 200-25 mcg/dose (Breo Ellipta) 1 inh inhalation DAILY glipizide ER 5 mg PO QAM 90 days lancets (FreeStyle Lancets) As directed metformin 250 mg (1/2 x 500 mg) PO BID 90 days metoprolol succinate ER 50 mg PO BID pantoprazole 40 mg PO QPM 30 days pregabalin 75 mg PO QID rosuvastatin 40 mg PO ONCE sumatriptan succinate take 1 tab at onset of headache; if no relief may repeat 1 tab after at least 2 hrs; max = 4 tabs/24 hr PO MDD 200mg Tobacco use date assessed: 03/09/24 Dental Screening Dental Screen Date: 03/09/24 HPI neck pain and arms HPI Details 59 y/o male presents to f/u neck pain. MRI from 2023 showed ACDF C5-C7 and multilevel cervical spondylosis. Recent MRI shows C5-C7 ACDF with cervical spondylosis as well as advanced left C6-C7 foraminal narrowing with suspected underlying soft disc herniation. Spinal canal widely patent. Also C4-C5 she has advanced disc degeneration with 3 mm right posterolateral/proximal foraminal disc protrusion contacting spinal cord without impingement in this severely narrows right nerve entry/proximal foramen. Recommends clinical correlation of any C5 radiculitis. C3-C4 disc bulge, indenting ventral aspect of the thecal sac. Pt notes L hand has been bothering him and reports worsening weakness of his arms. Labs drawn 04/05/25. Reviewed labs with pt. Mild anemia. Fasting glucose 179. A1c 6.1%. He is on glipizide,metformin 0mg b.i.d. [facility] Medical History Sleep apnea Arthritis Chronic neck and back pain On beta jamari at home CAD (coronary artery disease) Substance abuse HTN (hypertension) Surgical History Hx of CABG H/O spinal fusion Stented coronary artery Hx of endoscopy Hx of colonoscopy Family History Mother COPD (chronic obstructive pulmonary disease) Cancer Substance abuse Mental health disorder Father CAD (coronary artery disease) COPD (chronic obstructive pulmonary disease) Social History Household Members: Family Housing: House Are you a primary career placement services counselor to a significant other at home: No Do you presently have visiting nurse or other home services: No Alcohol intake: former Patient Tobacco Use Status: Former Tobacco user Tobacco use type: Cigarette Cigarette Packs Per Day: 1 Cigarettes Per Day: 20 Years Smoked: 20 e-Cigarette/Vaping Use: Never Used Second Hand Smoke Exposure: No Substance Use Type: Marijuana service: No Current occupational status: employed and disabled Current occupational exposures/hazards: No Cognitive needs: No Hearing needs: No Vision needs: No Questionnaire Thrive Questionnaire Date Thrive assessed: 09/14/24 I am a: Patient What is your living situation today?: I do not have a steady places to live I am temporarily staying with others Within the past 12 months, did the food you bought not last and you didn't have the money to get more?: Often true Within the past 12 months, did you worry whether your food would run out before you got money to buy more?: Often true Do you have trouble paying for medicines?: No Do you have trouble getting transportation to medical appointments?: No Do you have trouble paying your heating and electricity bill?: Yes Do you have trouble taking care of your child, family member or friend?: No Do you have trouble with day-to-day activities such as bathing, preparing meals, shopping, managing finances, etc.?: Yes Are you currently unemployed and looking for a job?: No Are you interested in more education?: No THRIVE Score: 4 MCKENNA-7 AMB Questionnaire MCKENNA-7 Date MCKENNA - 7 assessed: 06/11/23 Source: Developed by Drs. Junior Richards, Vania Vázquez, Fred Boudreaux and colleagues, with an educational zacarias from [employer]. Review of Systems Const Denies chills, Denies fatigue, Denies fever(s), Denies headache(s) and Denies weakness ENT Denies dizziness and Denies headache(s) Card Denies dyspnea Resp Denies cough, Denies dyspnea, Denies wheezing and Denies other (shortness of breath) Musc Denies numbness and Denies tingling Neuro Denies dizziness, Denies headache(s), Denies numbness, Denies tingling and Denies weakness Psych Denies anxiety and Denies depression Endo Denies fatigue Aller/Immun Denies wheezing Physical exam (Primary Care) Vital Signs: Last Vital Signs Temp 98.4 F 04/06/25 11:34 Pulse 60 04/06/25 11:34 Resp 16 04/06/25 11:34 BP 120/60 04/06/25 11:34 Pulse Ox 95 04/06/25 11:34 Oxygen Delivery Method Room Air 04/06/25 11:34 BMI result Body Mass Index 35.5 Tobacco/Smoking Status: Tobacco use Status Tobacco use date assessed 03/09/24 04/06/25 11:29 Patient Tobacco Use Status Former Tobacco user 04/06/25 11:29 Tobacco use type Cigarette 04/06/25 11:29 e-Cigarette/Vaping Use Never Used 04/06/25 11:29 Thrive Assessment: Date of Thrive Assessment Date Thrive assessed 09/14/24 04/06/25 11:29 Const General: well developed; No acute distress Nutritional Appearance: well nourished Orientation/consciousness: patient oriented x3 HENMT Head: Yes normocephalic and Yes atraumatic Eyes General: appearance normal, both eyes and all related structures Pupils: Equal, round and reactive pupils present EOM: EOMs intact bilaterally Resp Effort & Inspection: normal respiratory effort Neuro General: patient oriented x3 and gait normal Cranial nerves: Yes Equal, round and reactive pupils present Psych Affect: normal affect Coding Level of Care Code Est Pt Level 5 (60851) Diagnoses Cervicalgia M54.2 Failed back syndrome M96.1 Chronic pain G89.29 HTN (hypertension) I10 Diabetes E11.9 Weakness of both hands R29.898 Assessment & Plan Assessment & Plan (1) Cervicalgia: Code(s): M54.2 - Cervicalgia Category: Medical (2) Failed back syndrome: Code(s): M96.1 - Postlaminectomy syndrome, not elsewhere classified Category: Medical (3) Chronic pain: Code(s): G89.29 - Other chronic pain Category: Medical (4) HTN (hypertension): Code(s): I10 - Essential (primary) hypertension Category: Medical (5) Diabetes: Code(s): E11.9 - Type 2 diabetes mellitus without complications Category: Medical (6) Weakness of both hands: Code(s): R29.898 - Other symptoms and signs involving the musculoskeletal system Category: Medical Plan MRI from 2023 showed ACDF C5-C7 and multilevel cervical spondylosis. Recent MRI 03/2025 shows C5-C7 ACDF with cervical spondylosis as well as advanced left C6-C7 foraminal narrowing with suspected underlying soft disc herniation. Spinal canal widely patent. Also C4-C5 she has advanced disc degeneration with 3 mm right posterolateral/proximal foraminal disc protrusion contacting spinal cord without impingement in this severely narrows right nerve entry/proximal foramen. Recommends clinical correlation of any C5 radiculitis. C3-C4 disc bulge, indenting ventral aspect of the thecal sac. Patient has severe left hand and wrist weakness with inability to extend hand at the wrist. Above MRI findings do show C5 disc protrusion though findings seem to be more on right than left. I suspect the above findings also correlate with weakness on exam today. MRI also mentions some discogenic endplate edema at that level. Will give him a 10 day steroid taper and meloxicam. Given progression and weakness, will refer him to neuro spine urgently. Blood pressure is controlled. Goal is less than 130/80 A1c 6.1%. Controlled. Goal is less than 7.0% Continue current medication regimen Orders: Orders Prostate Specific Antigen Scr 04/06/25 Z12.5 - Encounter for screening for malignant neoplasm of prostate Microalbumin, Random (w Creat) 04/06/25 I10 - Essential (primary) hypertension Comprehensive [place]. Panel Fast 04/06/25 I10 - Essential (primary) hypertension, Z00.00 - Encounter for general adult medical examination without abnormal findings Lipid Panel 04/06/25 Z00.00 - Encounter for general adult medical examination without abnormal findings, Z95.5 - Presence of coronary angioplasty implant and graft Referrals Neurosurgery Referral M54.12 - Radiculopathy, cervical region, R29.898 - Other symptoms and signs involving the musculoskeletal system Medications: New prednisone 4 tabs daily for 4 days, 3 tabs daily for 2 days, 2 tabs daily for 2 days, 1 tab daily for 2 days PO daily; 28 tabs 0RF 10 days meloxicam 15 mg PO DAILY 30 tabs 2RF 30 days
[2025-04-06 11:34] VITALS: BP 120/60; PULSE 60; RESP 16; TEMP 36.9; O2SAT 95; BMI 35.5
== END 2025-04-06 12:30 | disposition home or self-care (01) ==
LOC: HO.HMCFM 11:10
PROVIDERS: PCP Family Medicine; Visit Provider Family Medicine
DX: M54.2 Cervicalgia (principal); E11.9 Type 2 diabetes mellitus without complications; M96.1 Postlaminectomy syndrome, not elsewhere classified; G89.29 Other chronic pain; I10 Essential (primary) hypertension; R29.898 Other symptoms and signs involving the musculoskeletal system

== ENCOUNTER → 2025-04-06 11:09 | Outpatient (BNVA) | payer MEDICARE, MEDICAID, SELFPAY | PROVIDERS: PCP Family Medicine; Visit Provider Family Medicine | DX: M54.2 Cervicalgia (principal); M96.1 Postlaminectomy syndrome, not elsewhere classified; G89.29 Other chronic pain; I10 Essential (primary) hypertension; E11.9 Type 2 diabetes mellitus without complications; R29.898 Other symptoms and signs involving the musculoskeletal system | CPT/HCPCS: 99212 ==

== ENCOUNTER 2025-04-11 12:45 | Outpatient (AMB) | payer MEDICARE, MEDICAID, SELFPAY ==
--- NOTE | 2025-04-11 13:06 | HO.SPINEOV ---
Intake Visit Reasons: cervical radiculopathy/left hand weakness Intake Note: Mr. Bonilla is here today c/o neck pain and left hand weakness. Sales Record Clerk Required: No Allergies No Known Allergies Allergy (Verified 04/11/25 13:12) Assessment & Plan Assessment & Plan (1) Radial nerve palsy: Code(s): G56.30 - Lesion of radial nerve, unspecified upper limb Category: Medical Plan Dear colleague, Thank you for referring David to our office today. He is a pleasant 59-year-old male who comes in today for evaluation of neck pain and bilateral arm weakness. Generally speaking he is a poor historian difficult time recalling his symptoms and medical history. He states that he has primarily posterior neck pain with the occasional pains in his arms as well near the forearms but it does not sound like this is a pain that shoots down from the neck into the actual arms. He states that his right upper extremity has felt weak for the past few years, and that abruptly on february 16 he awoke from a nap and had profound weakness throughout his left upper extremity. He states that gradually since then he has regained some function of his left upper extremity but it is still very difficult for him to move this arm and engage the muscles in this arm. In addition to this, he reports that he wakes up at night with his bilateral hands numb, and also wakes up at night with severe pain near his wrists and hands. He denies any worsening issues with balance/dexterity. He reports that he has been to physical therapy in the past for this issue but does not feel it was significantly helpful. He sees a plate grainer in [place] who has attempted cortisone injections in the past, the last being about 1 year ago. He reports no significant relief from cortisone injections. He has attempted to take [id number] medications like ibuprofen/Tylenol for this issue, however states they are not particularly helpful. He is currently prescribed Vicodin and gabapentin to help mitigate some of his symptoms. PMH: Hx of C5-7 ACDF. Chronic headaches, sleep apnea with daytime sleepiness, paroxysmal atrial fibrillation, Hx CABG procedure, exposure to MRSA, asthma, pulmonary nodules, obstructive sleep apnea, dyspnea on exertion, diabetes (last A1C 6.1%), failed back syndrome, coronary artery disease, anxiety, depression, hyperlipidemia history of skin cancer, hypogonadism, COPD, HTN. Social hx: The patient does not smoke, reports recreational cannabis use. Denies any other substance use. Medications: See [employer] list, on Aspirin and diabetes medications. Allergies: NKDA. Physical exam: The patient's examination is slightly confounding. Before formally examining him I asked the patient to hold his arms out and lift his wrists up displaying an outstretched hand. He was unable to perform this action with his left hand, despite being able to extend both arms without issue. I would typically associate this with a wrist drop. I also asked him to demonstrate the weakness he is referencing in his arms, and he had to manually peanut picker his left arm and place it on the examination table next to him, indicating that he had some weakness preventing him from lifting the arm up. Once I had him get up onto the examination table in informed him that I would be doing some strength testing with him, he was able to perform nearly full strength testing of his upper and lower extremities including a very strong 5/5 wrist extension and flexion against resistance. His only real strength limitation seem to be about 4/5 strength with left-sided hand top collar baster. He ambulates well without any assistive devices. His gait is nonantalgic and non spastic. He has no significant sensational deficits reported to light touch during examination. His bilateral patellar reflexes were hyperactive, however the rest of his reflexes were 2+ intact. (+) Tinel's at wrist bilaterally, (-) bilateral straight leg raise, (-) Lopez's, (-) clonus. Imaging review: MRI of the cervical spine completed at [facility] demonstrates previous C5-7 ACDF. There appears to be severe right-sided foraminal stenosis at C4-5, and moderate-severe left-sided foraminal stenosis at C6-7. No significant spinal cord compression, no evidence of T2 signal change or myelomalacia. Impression: David is a pleasant 59-year-old male who comes in today for evaluation of several concurrent issues. His 1st main issue is the left arm which he states has not function properly since taking a nap around February 16. This is most consistent with a radial nerve palsy on the left-hand side. Typically about 90% of these will resolve in the 1st 4 months after the incident. Second would be is more longstanding neck pain and right arm weakness. This may be related to the right sided compression seen at C4-5 on MRI. Third would be his disclosure of hand numbness and severe pain which wakes him up at night. This is most consistent with something such as carpal tunnel syndrome. Given this patient's wide array of current issues which are confounding 1 another, I would like to have him sent for an EMG of the upper extremities to delineate between carpal/cubital tunnel syndrome, and a true cervical radiculopathy/nerve root impingement. After this is complete I will call him with the updated results and further recommendations. Thank you for allowing us to care for your patient. The total time spent with this visit with this patient was 45 minutes reviewing history, physical exam,MRI imaging review, and implementation of treatment plan or further diagnostic testing Nitish Boswell MD,PhD [facility] Coding Level of Care Code New Pt Level 4 (87546) Diagnoses Radial nerve palsy G56.30
== END 2025-04-11 13:53 | disposition home or self-care (01) ==
LOC: HO.HNS 12:45
PROVIDERS: PCP Family Medicine; Referring Provider Family Medicine; Visit Provider Physician Assistant
DX: G56.30 Lesion of radial nerve, unspecified upper limb (principal)
CPT/HCPCS: 99204

== ENCOUNTER → 2025-04-11 12:45 | Outpatient (BNVA) | payer MEDICARE, MEDICAID, SELFPAY | PROVIDERS: PCP Family Medicine; Referring Provider Family Medicine; Visit Provider Physician Assistant | DX: G56.02 Carpal tunnel syndrome, left upper limb (principal); M54.2 Cervicalgia | CPT/HCPCS: 99202 ==

== ENCOUNTER 2025-04-19 10:27 | Outpatient (AMB) | payer MEDICARE, MEDICAID, SELFPAY ==
--- NOTE | 2025-04-19 10:42 | MHC.PC.OV ---
Vital Signs 04/19/25 10:49 Height 5 ft 5 in Weight 218 lb 6 oz BMI 36.3 BP 140/72 H Blood Pressure Location Lt brachial Position Sitting Respiration 16 Pulse 67 Pulse Source Pulse Oximeter Temp 98.3 F Temp Source Temporal Artery Scan Pulse Oximetry (%) 96 Oxygen Delivery Method Room Air Intake Visit Reasons: f/u Left arm weakness Intake Note: David presents in the office today for left arm weakness. 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 Required: No Allergies No Known Allergies Allergy (Verified 04/19/25 10:44) Medication List - Last Reconciled 04/19/25 by Ivan Ash MD aspirin (St Von Aspirin) 81 mg PO DAILY blood sugar diagnostic (FreeStyle Lite Strips) DX: E11.9, test blood sugar once a day, 90 days blood-glucose meter (FreeStyle Lite Meter kit) DX: E11.9, test blood sugar once a day, duration 999 days buspirone 5 mg PO DAILY buspirone 15 mg orally at bedtime; cetirizine (Zyrtec) 10 mg PO DAILY PRN clonazepam 1.5 mg PO BEDTIME diltiazem HCl ER 180 mg PO DAILY ezetimibe 10 mg PO DAILY fluticasone furoate-vilanterol 200-25 mcg/dose (Breo Ellipta) 1 inh inhalation DAILY glipizide ER 5 mg PO QAM 90 days hydrocodone-acetaminophen 10-325 mg 1 tab PO Q6H PRN lancets (FreeStyle Lancets) As directed metformin 250 mg (1/2 x 500 mg) PO BID 90 days metoprolol succinate ER 50 mg PO BID morphine mg PO DAILY pantoprazole 40 mg PO QPM 30 days pregabalin 75 mg PO QID rosuvastatin 40 mg PO ONCE sumatriptan succinate take 1 tab at onset of headache; if no relief may repeat 1 tab after at least 2 hrs; max = 4 tabs/24 hr PO MDD 200mg Tobacco use date assessed: 04/19/25 Dental Screening Dental Screen Date: 04/19/25 Did you have a dental visit in the last 12 months?: Yes Did you have a dental problem in the last 6 months where you did not have access to dental care?: No Was dental information given to patient?: Patient has dentist HPI f/u Left arm weakness HPI Details 59 y/o male presents to f/u weakness of both hands. Had followed up with spine clinic 04/11/25. They would like to have him sent for an EMG of upper extremities to delineate between carpal/cubital tunnel syndrome and a true cervical radiculopathy/nerve root impingement. [facility] Medical History Sleep apnea Arthritis Chronic neck and back pain On beta jamari at home CAD (coronary artery disease) Substance abuse HTN (hypertension) Surgical History Hx of CABG H/O spinal fusion Stented coronary artery Hx of endoscopy Hx of colonoscopy Family History Mother COPD (chronic obstructive pulmonary disease) Cancer Substance abuse Mental health disorder Father CAD (coronary artery disease) COPD (chronic obstructive pulmonary disease) Social History (Updated 04/19/25 @ 10:49 by Pearl Whipple CMA) Household Members: Family Housing: House Are you a primary acute care nurse practitioner to a significant other at home: No Do you presently have visiting nurse or other home services: No Alcohol intake: former Patient Tobacco Use Status: Former Tobacco user Tobacco use type: Cigarette Cigarette Packs Per Day: 1 Cigarettes Per Day: 20 Years Smoked: 20 e-Cigarette/Vaping Use: Never Used Second Hand Smoke Exposure: No Substance Use Type: Marijuana service: No Current occupational status: employed and disabled Current occupational exposures/hazards: No Cognitive needs: No Hearing needs: No Vision needs: No Questionnaire Thrive Questionnaire Date Thrive assessed: 09/14/24 I am a: Patient What is your living situation today?: I do not have a steady places to live I am temporarily staying with others Within the past 12 months, did the food you bought not last and you didn't have the money to get more?: Often true Within the past 12 months, did you worry whether your food would run out before you got money to buy more?: Often true Do you have trouble paying for medicines?: No Do you have trouble getting transportation to medical appointments?: No Do you have trouble paying your heating and electricity bill?: Yes Do you have trouble taking care of your child, family member or friend?: No Do you have trouble with day-to-day activities such as bathing, preparing meals, shopping, managing finances, etc.?: Yes Are you currently unemployed and looking for a job?: No Are you interested in more education?: No THRIVE Score: 4 MCKENNA-7 AMB Questionnaire MCKENNA-7 Date MCKENNA - 7 assessed: 06/11/23 Source: Developed by Drs. Junior Richards, Vania Vázquez, Fred Boudreaux and colleagues, with an educational zacarias from [employer]. Review of Systems Const Denies chills, Denies fatigue, Denies fever(s), Denies headache(s) and Denies weakness ENT Denies dizziness and Denies headache(s) Card Denies dyspnea Resp Denies cough, Denies dyspnea, Denies wheezing and Denies other (shortness of breath) Musc Denies numbness and Denies tingling Neuro Denies dizziness, Denies headache(s), Denies numbness, Denies tingling and Denies weakness Psych Denies anxiety and Denies depression Endo Denies fatigue Aller/Immun Denies wheezing Physical exam (Primary Care) Vital Signs: Last Vital Signs Temp 98.3 F 04/19/25 10:49 Pulse 67 04/19/25 10:49 Resp 16 04/19/25 10:49 BP 140/72 H 04/19/25 10:49 Pulse Ox 96 04/19/25 10:49 Oxygen Delivery Method Room Air 04/19/25 10:49 BMI result Body Mass Index 36.3 Tobacco/Smoking Status: Tobacco use Status Tobacco use date assessed 04/19/25 04/19/25 10:51 Patient Tobacco Use Status Former Tobacco user 04/19/25 10:51 Tobacco use type Cigarette 04/19/25 10:51 e-Cigarette/Vaping Use Never Used 04/19/25 10:51 Thrive Assessment: Date of Thrive Assessment Date Thrive assessed 09/14/24 04/19/25 10:51 Const General: well developed; No acute distress Nutritional Appearance: well nourished Orientation/consciousness: patient oriented x3 HENMT Head: Yes normocephalic and Yes atraumatic Eyes General: appearance normal, both eyes and all related structures Pupils: Equal, round and reactive pupils present EOM: EOMs intact bilaterally Resp Effort & Inspection: normal respiratory effort Neuro General: patient oriented x3 and gait normal Cranial nerves: Yes Equal, round and reactive pupils present Psych Affect: normal affect Coding Level of Care Code Est Pt Level 3 (99033) Diagnoses Weakness of both hands R29.898 Assessment & Plan Assessment & Plan (1) Weakness of both hands: Code(s): R29.898 - Other symptoms and signs involving the musculoskeletal system Category: Medical Plan: Ongoing left hand pain and weakness He has now been seen by neuro spine and they plan EMG testing to determine source nerve compression/injury Patient notes that prednisone did help with discomfort but was causing stomach irritation He would like to try a shorter course and we will switch after that to celecoxib He will know if he still has stomach irritation Follow-up with neuro spine as recommended Medications: New prednisone 10 mg PO DAILY 4 tabs 0RF 4 days celecoxib 200 mg PO BID PRN 60 caps 0RF pain 30 days famotidine 20 mg PO BID 60 tabs 0RF 30 days
[2025-04-19 10:49] VITALS: BP 140/72; PULSE 67; RESP 16; TEMP 36.8; O2SAT 96; BMI 36.3
== END 2025-04-19 12:09 | disposition home or self-care (01) ==
LOC: HO.HMCFM 10:28
PROVIDERS: PCP Family Medicine; Visit Provider Family Medicine
DX: R29.898 Other symptoms and signs involving the musculoskeletal system (principal)

== ENCOUNTER → 2025-04-19 10:27 | Outpatient (BNVA) | payer MEDICARE, MEDICAID, SELFPAY | PROVIDERS: PCP Family Medicine; Visit Provider Family Medicine | DX: R29.898 Other symptoms and signs involving the musculoskeletal system (principal) | CPT/HCPCS: 99212 ==